=== PATIENT | female | born 1980 | race Caucasian/White ===

== ENCOUNTER 2018-03-22 09:22 | Outpatient (CLI) | payer OTHER, SELFPAY ==
[2018-03-23 07:24] LABS: Vitamin D 25 Total 39.3 ng/ml (30-100)
== END 2018-03-22 09:42 ==
PROVIDERS: PCP Physician Assistant Medical; Visit Provider Podiatrist
DX: E55.9 Vitamin D deficiency, unspecified (principal)
CPT/HCPCS: 36415; 82306

== ENCOUNTER 2018-04-16 13:21 | Outpatient (REF) | payer OTHER, SELFPAY | END 2018-04-16 13:41 | LOC: NCHCN 13:21 | PROVIDERS: PCP Physician Assistant Medical; Visit Provider Specialist/Technologist Athletic Trainer | DX: J02.9 Acute pharyngitis, unspecified (principal) | CPT/HCPCS: 87070 ==

== ENCOUNTER 2018-07-02 15:16 | Outpatient (CLI) | payer OTHER, SELFPAY ==
--- NOTE | 2018-07-02 16:00 | DI.RAD_ITS ---
SYMPTOM/DIAGNOSIS: WHEEZING, R06.2 PA AND LATERAL CHEST: No priors. The heart is normal in size. The lungs are clear. The mediastinal structures and pleura appear intact. CONCLUSION: Normal chest.
== END 2018-07-02 15:36 ==
PROVIDERS: PCP Physician Assistant Medical; Visit Provider Physician Assistant Medical
DX: R06.2 Wheezing
CPT/HCPCS: 71046

== ENCOUNTER 2018-11-27 08:59 | Outpatient (CLI) | payer OTHER, SELFPAY ==
[2018-11-27 10:48] LABS: Calculated LDL 117 mg/dL; Cholesterol 185 mg/dL (50-200); HDL Cholesterol 50 mg/dL (40-60); TSH (W/Ref FT4) 1.47 uIU/mL (0.358-3.74); Triglyceride 94 mg/dL (30-150)
== END 2018-11-27 09:19 ==
PROVIDERS: PCP Physician Assistant Medical; Visit Provider Physician Assistant Medical
DX: Z00.00 Encounter for general adult medical examination without abnormal findings (principal); Z13.29 Encounter for screening for other suspected endocrine disorder; Z13.220 Encounter for screening for lipoid disorders
CPT/HCPCS: 36415; 80061; 83721; 84443

== ENCOUNTER 2019-12-24 09:49 | Outpatient (REF) | payer BC, SELFPAY ==
--- NOTE | 2019-12-24 07:30 | PAPFT_PTH ---
PATIENT: Nory Wilkins LOC: [facility]#:[id number] AGE/SX: 39/F ROOM: RE12/24/[address]: Doreen Yung : 1980 BED: DIS: 12/24/2019 SPEC #: [id number] RECD: 12/24/19 18:30 STATUS: ROSE RERoxy #: [id number] COURTNEY: 12/24/19 07:[address]: Doreen Yung DEPT: [facility] Cytology RECD BY: Micaela Maria Tissues: 1 - CX/ENDOCX FOR PAP SMEARS Procedures: PAP THIN PREP/UVM Screening HPV DNA PROBE Comments: [id number]
== END 2019-12-24 10:09 ==
LOC: NCHCN 09:49
PROVIDERS: PCP Physician Assistant Medical; Visit Provider Physician Assistant Medical
DX: N76.0 Acute vaginitis (principal); Z12.4 Encounter for screening for malignant neoplasm of cervix; Z11.51 Encounter for screening for human papillomavirus (HPV)
CPT/HCPCS: 88142; 87480; 87510; 87624; 87660

== ENCOUNTER 2020-02-23 19:46 | Outpatient (REF) | payer BC, SELFPAY ==
[2020-02-25 13:49] LABS: COVID-19 RT-PCR UVMMC Result Negative (Negative)
== END 2020-02-23 20:06 ==
LOC: NCHCN 19:46
PROVIDERS: PCP Physician Assistant Medical; Visit Provider Physician Assistant Medical
DX: R23.3 Spontaneous ecchymoses (principal); R06.02 Shortness of breath; J06.9 Acute upper respiratory infection, unspecified
CPT/HCPCS: U0003

== ENCOUNTER 2020-02-25 11:10 | Emergency (ER) | payer BC, SELFPAY ==
[2020-02-25] VITALS (39 sets, daily range): BP systolic 126–149; BP diastolic 67–93; PULSE 102–135; RESP 1–24; TEMP 36.7; O2SAT 89–98
--- NOTE | 2020-02-25 11:21 | ED.GENADUL_ITS ---
Discharge Plan Disposition Patient Disposition: [facility] ([facility]) Condition: Stable Discharge Details Clinical Impression: Leukocytosis, Monocytosis, Cervical adenopathy, Splenic lesion, Acute dyspnea, Hypoxia Primary Care Provider: Doreen Yung ED Provider: Monisha Og Home Meds and New Rx's Prescriptions: No Action epinephrine 0.3 MG/SYR auto-injector 0.3 mg IJ PRN PRNRF: 0 albuterol sulfate [ProAir HFA] 8.5 GM HFA aerosol inhaler 2 puff Inhalation PRN PRNRF: 0 omeprazole 40 mg capsule,delayed release(DR/EC) 40 mg PO DAILY RF: 0 montelukast [Singulair] 10 mg Tablet 10 mg PO QHS RF: 0 cholecalciferol (vitamin D3) [Vitamin D3] 25 mcg (1,000 unit) Tablet 25 mcg PO DIRECTED RF: 0 Medical Decision Making 1130 -- 39-year-old female presents with difficulty breathing and sensation of throat swelling status post albuterol x 4 weeks, left shoulder and left lateral rib pain worse with deep breath and moving for the past 2 weeks. Heart rate 120s, oxygen saturation ranged between 90 and 98% on room air. She has mildly diminished breath sounds at bases bilaterally, otherwise no wheezes, rhonchi or crackles. Differential diagnosis includes acute asthma exacerbation, PE, soft tissue neck obstruction, pneumonia, pharyngitis, etc. Will place an IV, bolus IV fluids, screening labs, CT neck, CT chest, and give Solu-Medrol, Atrovent neb, Toradol and fluids and reassess. 1400 --labs and imaging reviewed. White blood cell count 178. Hemoglobin 10. Platelets 30. INR 1.2. Potassium 3.1. Troponin negative. Imaging reviewed with radiologist who notes tissue inflammation and adenopathy on CT neck but airway appears patent. CT chest notes questionable mass in the spleen and Dr. Oliver is requesting venous phase CT abdomen to further evaluate the spleen. Patient reassessed and she states she feels better. Oxygen saturation remains 90% on room air. Lung sounds appear improved. She appears more comfortable. Case discussed with [facility] hematology who requested LDH, uric acid, flow cytometry and peripheral smear. Consider leukemia versus lymphoma, etc. Requested whether a pathologist was in-house and he is not today. They have no beds available but are recommending tertiary care for further evaluation. Will discuss with [facility]. Case discussed with [facility] hospitalist service who agrees with plan for tertiary care and accepts patient for transfer. Accepting physician Dr. Dodd. Transfer center from [facility] shortly called back stating that they do not have a bed available and will plan to transfer to the ER. Case discussed with ED attending Dr. Barfield who accepts patient for transfer. Medical Records Medical records reviewed: Yes I reviewed the patient's medical records. Imaging Data Radiologic Study: Radiologist's impression: CT NECK/CHEST/ABDOMEN W CLINICAL HISTORY: sensation of throat swelling, sore throat TECHNIQUE: COMPARISON: CT CT CHEST PE CTA from 02/25/2020 FINDINGS: CT angiography of the chest was performed followed CT of the cervical region. Following the delay of approximately 2 hours, scanning of abdomen pelvis was performed with additional IV contrast administration to facilitate venous phase imaging of the abdomen.Total of 200 cc of Omnipaque was injected between the 3 scans which were performed. The lungs are predominantly clear with some apparent bibasilar atelectasis left greater than right. There is no evidence of pulmonary embolic disease. Thoracic aorta and major branches appear intact. No significant mediastinal or hilar adenopathy. There is slight prominence of the thymus which is nonspecific. Tracheobronchial tree appears intact. No pleural effusion. On arterial phase imaging, there was apparent multi focal decreased attenuation of the spleen atypical for the usual arterial flow appearance. On venous phase imaging, this was confirmed to represent multiple areas of decreased attenuation, the largest measuring about 8 x 8 cm in diameter. Spleen is mildly enlarged. Liver is normal appearance no focal lesion. Pancreas appears normal. Adrenals and kidneys are normal. No urinary tract obstruction. Yacht [employer] structures appear intact. No focal bowel pathology. No abdominal or pelvic adenopathy. No significant abdominal wall hernia.. Scanning of the cervical region shows multiple mildly enlarged lymph nodes at multiple locations throughout the neck including submandibular enlarged nodes bilaterally, the largest nodes in the mid cervical region measure up to about 20 millimeters in greatest diameter. Mild prominence of supraclavicular nodes is also noted bilaterally, the largest measuring about 10 millimeters in diameter. Tracheolaryngeal structures appear intact. No significant vascular abnormality. Visualized orbits appear intact. Mastoid air cells and paranasal sinuses appear clear. IMPRESSION: Mild to moderate nonspecific cervical adenopathy without bulky adenopathy. Multiple splenic lesions are also noted of indeterminate etiology, suspect neoplastic disease. 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 Lab Data Lab results reviewed: Yes I reviewed the patient's lab results. Labs: 02/25/20 12:20 Pharynx Streptococcus Screen ([facility]) - Pending Laboratory Tests Range/Units 02/25/20 02/25/20 02/25/20 12:00 12:00 12:00 WBC (4.4-10.8) 10^3/uL 178.94 H* RBC (3.93-5.22) 10^6/uL 3.18 L Hgb (11.2-15.7) g/dL 10.1 L Hct (36.0-46.0) % 30.9 L MCV (80-95) fL 97.2 H MCH (27.0-33.0) pg 31.8 MCHC (32.0-36.0) % 32.7 RDW (11.7-14.6) % 16.6 H Plt Count (130-400) 10^3/uL 30 L MPV (8.0-11.0) fL 10.9 Immature Gran % See Differential Neutrophils % 6.0 Lymphocytes % 10.0 Monocytes % 77.0 Eosinophils % 2.0 Basophils % 0.0 Myelocytes % 3 Other Cells % 2 Nucleated RBC % % 0 Absolute Neutrophils (1.2-6.7) 10^3/uL 10.74 H Absolute Lymphocytes (1.2-3.4) 10^3/uL 17.89 H Absolute Monocytes (0.1-0.8) 10^3/uL 137.78 H Absolute Eosinophils (0.0-0.7) 10^3/uL 3.58 H Absolute Basophils (0.0-0.2) 10^3/uL 0.00 RBC Morphology See below Anisocytosis 1+ PT (9.3-11.0) sec 11.9 H INR (0.9-1.1) 1.2 H APTT (21.0-31.4) sec 24.7 Sodium (136-145) mmol/L 140 Potassium (3.5-5.1) mmol/L 3.1 L Chloride (98-107) mmol/L 103 Carbon Dioxide (21.0-32.0) mmol/L 28.1 Anion Gap (3-11) mmol/L 8.9 BUN (7-18) mg/dL 7 Creatinine (0.55-1.02) mg/dL 1.09 H Estimated GFR/1.73 m2 (mL/min/1.73m2) 56.48 Glucose (74-106) mg/dL 111 H Uric Acid (2.6-6.0) mg/dL Calcium (8.5-10.1) mg/dL 8.8 Magnesium (1.8-2.4) mg/dL 2.1 Total Bilirubin (0.2-1.0) mg/dL 0.5 AST (15-37) U/L 55 H ALT (14-59) U/L 96 H Alkaline Phosphatase (46-116) U/L 101 Lactate Dehydrogenase (81-234) U/L Troponin I (<0.06) ng/mL < 0.05 Total Protein (6.4-8.2) g/dL 7.2 Albumin (3.4-5.0) g/dL 3.1 L Serum HCG, Qual Range/Units 02/25/20 02/25/20 12:00 12:00 WBC (4.4-10.8) 10^3/uL RBC (3.93-5.22) 10^6/uL Hgb (11.2-15.7) g/dL Hct (36.0-46.0) % MCV (80-95) fL MCH (27.0-33.0) pg MCHC (32.0-36.0) % RDW (11.7-14.6) % Plt Count (130-400) 10^3/uL MPV (8.0-11.0) fL Immature Gran % Neutrophils % Lymphocytes % Monocytes % Eosinophils % Basophils % Myelocytes % Other Cells % Nucleated RBC % % Absolute Neutrophils (1.2-6.7) 10^3/uL Absolute Lymphocytes (1.2-3.4) 10^3/uL Absolute Monocytes (0.1-0.8) 10^3/uL Absolute Eosinophils (0.0-0.7) 10^3/uL Absolute Basophils (0.0-0.2) 10^3/uL RBC Morphology Anisocytosis PT (9.3-11.0) sec INR (0.9-1.1) APTT (21.0-31.4) sec Sodium (136-145) mmol/L Potassium (3.5-5.1) mmol/L Chloride (98-107) mmol/L Carbon Dioxide (21.0-32.0) mmol/L Anion Gap (3-11) mmol/L BUN (7-18) mg/dL Creatinine (0.55-1.02) mg/dL Estimated GFR/1.73 m2 (mL/min/1.73m2) Glucose (74-106) mg/dL Uric Acid (2.6-6.0) mg/dL 8.3 H Calcium (8.5-10.1) mg/dL Magnesium (1.8-2.4) mg/dL Total Bilirubin (0.2-1.0) mg/dL AST (15-37) U/L ALT (14-59) U/L Alkaline Phosphatase (46-116) U/L Lactate Dehydrogenase (81-234) U/L 1432 H Troponin I (<0.06) ng/mL Total Protein (6.4-8.2) g/dL Albumin (3.4-5.0) g/dL Serum HCG, Qual Negative HPI General Mode of arrival: ambulatory . Date/Time Provider Initiated Documentation: 02/25/20 11:19 . Limitations to Documentation: no limitations . Information obtained by: patient . HPI Narrative: Patient is a 39-year-old female with a history of asthma and PCOS who presents with a complaint of difficulty breathing for the past 4 weeks, worse since yesterday. Patient states that her initial flare was triggered by smelling perfume in the bathroom at her work 4 weeks ago. She states she took 1 puff of her albuterol when she went home and developed a sensation of throat swelling and has not used the albuterol since then. She states she has used albuterol as needed for asthma for several years and has always had this reaction to this. She saw her primary care doctor last week for the symptoms and was started on p.o. steroids and states she is currently on 20 mg daily. She feels that this has slightly improved her sensation of throat swelling and difficulty breathing until last night. She states she is occasionally clearing her throat but otherwise denies any coughing or anterior chest pain. She states that she has left shoulder and left lateral chest pain that hurts with movement and deep breath. She denies any fever, recent travel, recent sick contacts. She has not taken any recent antibiotics. She denies any new pets, foods, irritants at home. Related Data Home Medications Medication Instructions Recorded Confirmed albuterol sulfate [Proair Hfa] 2 puff INHALATION PRN PRN 08/21/15 02/25/20 epinephrine 0.3 mg IJ PRN PRN 08/21/15 02/25/20 cholecalciferol (vitamin D3) 25 mcg PO DIRECTED 02/25/20 02/25/20 [Vitamin D3] montelukast [Singulair] 10 mg PO QHS 02/25/20 02/25/20 omeprazole 40 mg PO DAILY 02/25/20 02/25/20 Allergies Allergy/AdvReac Type Severity Reaction Status Date / Time hydrocodone Allergy Intermediate rash and Unverified 02/25/20 12:31 facial swelling amoxicillin Allergy Unknown as Unverified 02/25/20 12:31 albuterol Allergy Unverified 02/25/20 12:31 fluticasone propionate Allergy mild Unverified 02/25/20 12:31 [From Advair Diskus] throat swelling salmeterol xinafoate Allergy mild Unverified 02/25/20 12:31 [From Advair Diskus] throat swelling venom-honey bee Allergy Anaphylaxsi Unverified 02/25/20 12:31 [bee venom (honey bee)] s Review of Systems All systems reviewed & are unremarkable except as noted in HPI and below Constitutional Constitutional: Reports as per HPI, Denies chills and Denies fever(s) Eyes Eyes: Denies blurry vision ENT Ears, Nose, Mouth, and Throat: Denies dizziness, Denies sore throat and Denies throat swelling Cardiovascular Cardiovascular: Denies chest pain and Reports dyspnea Respiratory Respiratory: Denies cough and Reports dyspnea Gastrointestinal Gastrointestinal: Denies abdominal pain, Denies diarrhea and Denies vomiting Genitourinary Genitourinary: Denies hematuria and Denies dysuria Musculoskeletal Musculoskeletal: Reports back pain and Denies numbness Integumentary/Breasts Skin/Breast: Denies lesions and Denies rash Neurologic Neurologic: Denies dizziness, Denies localized weakness and Denies numbness Allergic/Immunologic Allergic/Immunologic: Denies throat swelling [facility] Medical History (Updated 02/25/20 @ 17:03 by Monisha Og DO) Asthma PCOS (polycystic ovarian syndrome) Surgical History (Updated 02/25/20 @ 12:21 by Monisha Og DO) History of ankle surgery Social History Smoking/Tobacco Use Status: Never Alcohol Intake: current Alcohol Intake frequency: a few times a week Alcohol type: beer, wine and hard liquor Drug use: Never Substance use type: does not use Do you feel safe at home: Yes Do you feel safe in your relationship?: Yes Exam Const General: cooperative and healthy appearing Orientation: alert and awake HENMT Head: normal to inspection Ears: hearing grossly normal bilaterally and external ears normal General nose exam: external nose normal Face and sinus: normal facial exam Mouth: oral mucosae normal Teeth and gingiva: dentition normal Throat: uvula midline, no peritonsillar masses and posterior oropharynx abnormal erythema and exudates (White, bilateral tonsils) Eyes General: appearance normal, both eyes and all related structures Eyelids: eyelids normal Pupils: PERRL EOM: EOM intact bilaterally Neck Neck: normal visual inspection, full ROM, no lymphadenopathy, no meningeal signs, trachea midline, supple, no anterior neck swelling, no midline deformity and No submandibular swelling Lymphatic: no lymphadenopathy noted Chest Chest: normal inspection of the chest Chest/axillae images: 1. Mild tenderness to palpation. No ecchymosis, edema, crepitus or erythema. 2. Mild tenderness to palpation. No ecchymosis, edema, crepitus or erythema. Resp Effort & Inspection: normal respiratory effort and able to speak in complete sentences Auscultation: clear to auscultation bilaterally, diminished lung sounds bilaterally in the lower lung kwan, no rhonchi and no wheezes Cardio Rate: regular rate Rhythm: regular rhythm GI Inspection: normal to inspection Palpation: soft, not firm, no guarding, no hepatosplenomegaly, no masses and no ntender Auscultation: normal bowel sounds Back/Spine/Pelvis Back: no CVA tenderness Skin General skin exam: no rashes or lesions noted Neuro General: patient alert and patient awake Cognition: normal cognition Speech: speech normal Gait: normal gait Motor: muscle tone normal throughout Sensory Exam: no sensory deficits noted Extrem General: normal to inspection, full ROM, capillary refill normal and no edema Psych Appearance: grossly normal Mental Status: mental status grossly normal Speech and Movement: speech and movement normal Affect: normal affect Thought Process: normal
[2020-02-25 12:11] LABS: HCT 30.9 % (36.0-46.0); HGB 10.1 g/dL (11.2-15.7); MCH 31.8 pg (27.0-33.0); MCHC 32.7 % (32.0-36.0); MCV 97.2 fL (80-95); MPV 10.9 fL (8.0-11.0); Nucleated RBC 0 %; RBC 3.18 10^6/uL (3.93-5.22); RDW 16.6 % (11.7-14.6); RDW-SD 57.8 fL
[2020-02-25] MEDS: Ipratropium 0.5 MG/2.5 ML UPD VIAL UPD (12:17)
[2020-02-25 12:22] LABS: INR 1.2 (0.9-1.1); PTT Activated 24.7 sec (21.0-31.4); Prothrombin Time 11.9 sec (9.3-11.0)
[2020-02-25 12:25] LABS: ALT 96 U/L (14-59); AST 55 U/L (15-37); Albumin 3.1 g/dL (3.4-5.0); Alkaline Phosphatase 101 U/L (46-116); Anion Gap 8.9 mmol/L (3-11); BUN 7 mg/dL (7-18); Bilirubin, Total 0.5 mg/dL (0.2-1.0); CO2 28.1 mmol/L (21.0-32.0); CREATININE 1.09 mg/dL (0.55-1.02); Calcium 8.8 mg/dL (8.5-10.1); Chloride 103 mmol/L (98-107); Estimated GFR 56.48 (mL/min/1.73m2); Glucose 111 mg/dL (74-106); Magnesium 2.1 mg/dL (1.8-2.4); Potassium 3.1 mmol/L (3.5-5.1); Sodium 140 mmol/L (136-145); Total Protein 7.2 g/dL (6.4-8.2)
[2020-02-25 12:26] LABS: Troponin I < 0.05 ng/mL (<0.06)
[2020-02-25] MEDS: Normal Saline Flush 10 ML SYR IVP (12:26)
[2020-02-25] MEDS: Normal Saline 1,000 ML 1000 ML IV (12:26)
[2020-02-25] MEDS: methylPREDNISolone SUCC 125 MG VIAL IVP (12:26)
[2020-02-25 12:31] LABS: HCG Qual (Serum) Negative
[2020-02-25 12:50] LABS: WBC 178.94 10^3/uL (4.4-10.8)
[2020-02-25 12:51] LABS: Absolute Lymphocyte Count 17.89 10^3/uL (1.2-3.4); Absolute Neutrophil Count 10.74 10^3/uL (1.2-6.7); Platelet Count 30 10^3/uL (130-400)
[2020-02-25 12:52] LABS: Absolute Eosinophil Count 3.58 10^3/uL (0.0-0.7); Absolute Monocyte Count 137.78 10^3/uL (0.1-0.8); Myelocytes % 3
[2020-02-25 12:53] LABS: Anisocytosis 1+; Other Cells % 2
[2020-02-25 12:54] LABS: Diff Comment Manual Differential
[2020-02-25] MEDS: Normal Saline - Diluent 50 ML VIAL 100 ML IV (13:06)
[2020-02-25] MEDS: Omnipaque 350 MG/ML 100 ML BTL IJ ×2 (13:28→14:48)
[2020-02-25] MEDS: Omnipaque 350 MG/ML 50 ML BTL IJ (13:29)
--- NOTE | 2020-02-25 13:43 | DI.CT_ITS ---
EXAM: CT NECK W CLINICAL HISTORY: sensation of throat swelling, sore throat TECHNIQUE: COMPARISON: CT CT CHEST PE CTA from 02/25/2020 FINDINGS: CT angiography of the chest was performed followed CT of the cervical region. Following the delay of approximately 2 hours, scanning of abdomen pelvis was performed with additiona l IV contrast administration to facilitate venous phase imaging of the abdomen.Total of 200 cc of Omn ipaque was injected between the 3 scans which were performed. The lungs are predominantly clear with some apparent bibasilar atelectasis left greater than right. There is no evidence of pulmonary embolic disease. Thoracic aorta and major branches appear intact. No significant mediastinal or hilar adenopathy. There is slight prominence of the thymus which is n onspecific. Tracheobronchial tree appears intact. No pleural effusion. On arterial phase imaging, there was apparent multi focal decreased attenuation of the spleen atypica l for the usual arterial flow appearance. On venous phase imaging, this was confirmed to represent m ultiple areas of decreased attenuation, the largest measuring about 8 x 8 cm in diameter. Spleen is mildly enlarged. Liver is normal appearance no focal lesion. Pancreas appears normal. Adren als and kidneys are normal. No urinary tract obstruction. [employer] structures appear intact. No focal jase l pathology. No abdominal or pelvic adenopathy. No significant abdominal wall hernia.. Scanning of the cervical region shows multiple mildly enlarged lymph nodes at multiple locations thro ughout the neck including submandibular enlarged nodes bilaterally, the largest nodes in the mid cerv ical region measure up to about 20 millimeters in greatest diameter. Mild prominence of supraclavicul ar nodes is also noted bilaterally, the largest measuring about 10 millimeters in diameter. Tracheola ryngeal structures appear intact. No significant vascular abnormality. Visualized orbits appear intac t. Mastoid air cells and paranasal sinuses appear clear. IMPRESSION: Mild to moderate nonspecific cervical adenopathy without bulky adenopathy. Multiple splenic lesions a re also noted of indeterminate etiology, suspect neoplastic disease. 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 RADIATION DOSE DELIVERED: Total DLP
[2020-02-25 15:23] LABS: Uric Acid 8.3 mg/dL (2.6-6.0)
[2020-02-25 15:24] LABS: LDH 1432 U/L (81-234)
[2020-02-25] MEDS: Potassium Chloride 20 MEQ TABCR 40 MEQ PO (17:10)
== END 2020-02-25 17:55 | disposition short-term general hospital (02) ==
PROVIDERS: Emergency Provider Physician Assistant; PCP Physician Assistant Medical
DX: D72.821 Monocytosis (symptomatic) (principal); D72.829 Elevated white blood cell count, unspecified; R09.02 Hypoxemia; R59.0 Localized enlarged lymph nodes; D73.89 Other diseases of spleen; R93.5 Abnormal findings on diagnostic imaging of other abdominal regions, including retroperitoneum; R07.81 Pleurodynia; R06.00 Dyspnea, unspecified
CPT/HCPCS: 36415; 70491; 71275; 80053; 87880; 94640; 96361; 96374; 99285; 74177; 83615; 83735; 84484; 84550; 84703; 85025; 85610; 85730; 87081; J2930; J3490; J7644; Q9967

== ENCOUNTER 2020-05-17 02:45 | Outpatient (CLI) | payer MEDICAID, SELFPAY ==
[2020-05-17 09:06] LABS: Abs Immature Grans 0.05 10^3/uL (0.0-0.06); Absolute Basophil Count 0.03 10^3/uL (0.0-0.2); Absolute Eosinophil Count 0.03 10^3/uL (0.0-0.7); Absolute Lymphocyte Count 1.06 10^3/uL (1.2-3.4); Absolute Monocyte Count 0.64 10^3/uL (0.1-0.8); Absolute Neutrophil Count 4.22 10^3/uL (1.2-6.7); Basophils % 0.5; Eosinophils % 0.5; HGB 11.2 g/dL (11.2-15.7); Immature Grans % 0.8; Lymphocytes % 17.6; MCH 31.5 pg (27.0-33.0); MCHC 32.9 % (32.0-36.0); MCV 95.8 fL (80-95); MPV 9.6 fL (8.0-11.0); Monocytes % 10.6; Nucleated RBC 0 %; Platelet Count 370 10^3/uL (130-400); RBC 3.55 10^6/uL (3.93-5.22); RDW 20.5 % (11.7-14.6); RDW-SD 69.8 fL; WBC 6.03 10^3/uL (4.4-10.8)
[2020-05-17 09:35] LABS: Anisocytosis 2+; Diff Comment RBC Morph Reviewed
[2020-05-17 09:55] LABS: ALT 46 U/L (14-59); AST 21 U/L (15-37); Albumin 3.5 g/dL (3.4-5.0); Alkaline Phosphatase 48 U/L (46-116); Anion Gap 10.7 mmol/L (3-11); BUN 12 mg/dL (7-18); Bilirubin, Total 0.5 mg/dL (0.2-1.0); CO2 24.3 mmol/L (21.0-32.0); CREATININE 0.99 mg/dL (0.55-1.02); Calcium 9.2 mg/dL (8.5-10.1); Chloride 103 mmol/L (98-107); Glucose 96 mg/dL (74-106); Potassium 4.2 mmol/L (3.5-5.1); Sodium 138 mmol/L (136-145)
[2020-05-18 04:00] LABS: COVID-19 RT-PCR UVMMC Result Negative (Negative)
== END 2020-05-17 03:05 ==
PROVIDERS: PCP Physician Assistant Medical; Visit Provider Student in an Organized Health Care Education/Training Program
DX: C92.00 Acute myeloblastic leukemia, not having achieved remission (principal); Z11.59 Encounter for screening for other viral diseases
CPT/HCPCS: 36415; 80053; U0003; 85025

== ENCOUNTER 2020-06-12 05:28 | Outpatient (CLI) | payer MEDICAID, SELFPAY ==
--- NOTE | 2020-06-12 08:30 | RT.EKG_ITS ---
APPROVED REPORT Exam: Resting ECG Patient Location: O HR:81 bpm ECG Measurements Heart Rate 81 AXIS MI 131 P 51 QRSd 84 QRS 0 QT 365 T 32 QTc 425 Conclusion Sinus rhythm...normal P axis, V-rate 60- 99
== END 2020-06-12 05:48 ==
PROVIDERS: PCP Physician Assistant Medical; Visit Provider Student in an Organized Health Care Education/Training Program
DX: C92.02 Acute myeloblastic leukemia, in relapse (principal)
CPT/HCPCS: 93005; 93010

== ENCOUNTER 2020-06-16 09:00 | Outpatient (RCR) | payer MEDICAID, SELFPAY ==
[2020-05-29 09:05] LABS: Abs Immature Grans 0.01 10^3/uL (0.0-0.06); Absolute Basophil Count 0.02 10^3/uL (0.0-0.2); Absolute Eosinophil Count 0.01 10^3/uL (0.0-0.7); Absolute Lymphocyte Count 0.39 10^3/uL (1.2-3.4); Absolute Neutrophil Count 1.22 10^3/uL (1.2-6.7); Basophils % 1.2; Eosinophils % 0.6; HCT 32.8 % (36.0-46.0); HGB 10.8 g/dL (11.2-15.7); Immature Grans % 0.6; Lymphocytes % 23.6; MCH 32.6 pg (27.0-33.0); MCHC 32.9 % (32.0-36.0); MCV 99.1 fL (80-95); MPV 8.8 fL (8.0-11.0); Nucleated RBC 0 %; Platelet Count 164 10^3/uL (130-400); RBC 3.31 10^6/uL (3.93-5.22); RDW-SD 62.2 fL
[2020-05-29 09:19] LABS: ALT 77 U/L (14-59); AST 22 U/L (15-37); Albumin 3.4 g/dL (3.4-5.0); Alkaline Phosphatase 46 U/L (46-116); BUN 14 mg/dL (7-18); Bilirubin, Total 0.6 mg/dL (0.2-1.0); CREATININE 0.95 mg/dL (0.55-1.02); Calcium 8.5 mg/dL (8.5-10.1); Chloride 104 mmol/L (98-107); Glucose 89 mg/dL (74-106); Sodium 138 mmol/L (136-145); Total Protein 7.1 g/dL (6.4-8.2)
[2020-05-29 09:48] LABS: WBC 1.65 10^3/uL (4.4-10.8)
[2020-05-29 09:49] LABS: Anisocytosis 1+; Diff Comment Diff Reviewed
[2020-05-29] MEDS: Normal Saline Flush 10 ML SYR IVP (10:39)
[2020-06-01 09:29] LABS: Absolute Lymphocyte Count 0.39 10^3/uL (1.2-3.4); HCT 29.7 % (36.0-46.0); MCH 33.1 pg (27.0-33.0); MCHC 33.7 % (32.0-36.0); MCV 98.3 fL (80-95); MPV 9.9 fL (8.0-11.0); Neutrophils % 13.3; Nucleated RBC 0 %; RBC 3.02 10^6/uL (3.93-5.22); RDW 15.8 % (11.7-14.6); RDW-SD 56.8 fL
[2020-06-01 09:54] LABS: ALT 60 U/L (14-59); AST 23 U/L (15-37); Albumin 3.5 g/dL (3.4-5.0); Alkaline Phosphatase 49 U/L (46-116); Anion Gap 9.5 mmol/L (3-11); BUN 14 mg/dL (7-18); Bilirubin, Total 0.6 mg/dL (0.2-1.0); CO2 25.5 mmol/L (21.0-32.0); CREATININE 0.91 mg/dL (0.55-1.02); Calcium 9.3 mg/dL (8.5-10.1); Chloride 104 mmol/L (98-107); Glucose 101 mg/dL (74-106); Potassium 3.9 mmol/L (3.5-5.1); Sodium 139 mmol/L (136-145); Total Protein 7.1 g/dL (6.4-8.2)
[2020-06-01 10:05] LABS: Diff Comment Agrees w/ Instrument; Lymphocytes % 86.7
[2020-06-01 10:09] LABS: Poikilocytes 2+
[2020-06-01 10:10] LABS: WBC 0.45 10^3/uL (4.4-10.8)
[2020-06-01 10:11] LABS: Absolute Neutrophil Count 0.06 10^3/uL (1.2-6.7); Platelet Count 45 10^3/uL (130-400)
[2020-06-01 10:12] LABS: Hypochromasia 1+
[2020-06-01] MEDS: Normal Saline Flush 10 ML SYR IVP (10:22)
[2020-06-05 07:13] LABS: Absolute Lymphocyte Count 0.42 10^3/uL (1.2-3.4); HCT 26.4 % (36.0-46.0); MCH 32.6 pg (27.0-33.0); MCHC 34.1 % (32.0-36.0); MCV 95.7 fL (80-95); Neutrophils % 2.3; Nucleated RBC 0 %; RBC 2.76 10^6/uL (3.93-5.22); RDW 14.7 % (11.7-14.6); RDW-SD 50.9 fL
[2020-06-05 08:18] LABS: WBC 0.43 10^3/uL (4.4-10.8)
[2020-06-05 08:19] LABS: Absolute Neutrophil Count 0.01 10^3/uL (1.2-6.7)
[2020-06-05 08:20] LABS: Platelet Count < 2 10^3/uL (130-400)
[2020-06-05 08:22] LABS: Lymphocytes % 97.7
[2020-06-05 08:23] LABS: Diff Comment Agrees w/ Instrument
[2020-06-05 08:24] LABS: RBC Morphology Normal
[2020-06-05 08:33] LABS: ALT 63 U/L (14-59); AST 27 U/L (15-37); Albumin 3.4 g/dL (3.4-5.0); Alkaline Phosphatase 63 U/L (46-116); Anion Gap 13.8 mmol/L (3-11); BUN 13 mg/dL (7-18); Bilirubin, Total 0.6 mg/dL (0.2-1.0); CO2 21.2 mmol/L (21.0-32.0); CREATININE 1.19 mg/dL (0.55-1.02); Calcium 9.2 mg/dL (8.5-10.1); Chloride 105 mmol/L (98-107); Estimated GFR 51.04 (mL/min/1.73m2); Glucose 112 mg/dL (74-106); Potassium 3.8 mmol/L (3.5-5.1); Sodium 140 mmol/L (136-145); Total Protein 7.5 g/dL (6.4-8.2)
[2020-06-05] MEDS: Normal Saline Flush 10 ML SYR IVP (08:51)
[2020-06-07] MEDS: Normal Saline Flush 10 ML SYR IVP (09:30)
[2020-06-07 09:51] LABS: Absolute Eosinophil Count 0.01 10^3/uL (0.0-0.7); Eosinophils % 2.4; HCT 24.3 % (36.0-46.0); HGB 8.5 g/dL (11.2-15.7); MCH 32.7 pg (27.0-33.0); MCV 93.5 fL (80-95); MPV 12.4 fL (8.0-11.0); Nucleated RBC 0 %; RDW 14.3 % (11.7-14.6); RDW-SD 48.7 fL
[2020-06-07 10:06] LABS: ALT 51 U/L (14-59); AST 22 U/L (15-37); Albumin 3.6 g/dL (3.4-5.0); Alkaline Phosphatase 69 U/L (46-116); Anion Gap 12.9 mmol/L (3-11); BUN 11 mg/dL (7-18); Bilirubin, Total 0.7 mg/dL (0.2-1.0); CO2 22.1 mmol/L (21.0-32.0); Calcium 9.3 mg/dL (8.5-10.1); Chloride 104 mmol/L (98-107); Estimated GFR 46.09 (mL/min/1.73m2); Glucose 97 mg/dL (74-106); Potassium 3.9 mmol/L (3.5-5.1); Sodium 139 mmol/L (136-145); Total Protein 7.3 g/dL (6.4-8.2)
[2020-06-07 10:51] LABS: Diff Comment Agrees w/ Instrument; Hypochromasia 2+
[2020-06-07 10:54] LABS: WBC 0.41 10^3/uL (4.4-10.8)
[2020-06-07 10:55] LABS: Platelet Count 30 10^3/uL (130-400)
[2020-06-09 09:00] VITALS: BP 119/64; PULSE 99; RESP 18; TEMP 37.3; O2SAT 99
[2020-06-09 09:12] LABS: Absolute Lymphocyte Count 0.42 10^3/uL (1.2-3.4); Absolute Monocyte Count 0.02 10^3/uL (0.1-0.8); HGB 7.8 g/dL (11.2-15.7); MCH 33.2 pg (27.0-33.0); MCHC 35.5 % (32.0-36.0); MCV 93.6 fL (80-95); MPV 11.1 fL (8.0-11.0); Monocytes % 4.5; Nucleated RBC 0 %; RBC 2.35 10^6/uL (3.93-5.22); RDW 14.3 % (11.7-14.6); RDW-SD 48.4 fL
[2020-06-09 09:29] LABS: ALT 39 U/L (14-59); AST 16 U/L (15-37); Albumin 3.3 g/dL (3.4-5.0); Alkaline Phosphatase 61 U/L (46-116); Anion Gap 10.6 mmol/L (3-11); BUN 13 mg/dL (7-18); Bilirubin, Total 0.4 mg/dL (0.2-1.0); CO2 23.4 mmol/L (21.0-32.0); CREATININE 1.07 mg/dL (0.55-1.02); Calcium 8.9 mg/dL (8.5-10.1); Chloride 105 mmol/L (98-107); Glucose 89 mg/dL (74-106); Potassium 3.9 mmol/L (3.5-5.1); Sodium 139 mmol/L (136-145); Total Protein 7.3 g/dL (6.4-8.2)
[2020-06-09 09:41] LABS: Lymphocytes % 95.5
[2020-06-09 09:42] LABS: Diff Comment Agrees w/ Instrument; Hypochromasia 2+
[2020-06-09 09:43] LABS: Poikilocytes 1+
[2020-06-09 09:48] LABS: Platelet Count 20 10^3/uL (130-400); WBC 0.44 10^3/uL (4.4-10.8)
[2020-06-09 09:57] LABS: Lymphocytes % 97.6
[2020-06-09 10:08] VITALS: BP 121/77; PULSE 96; RESP 18; TEMP 37.1; O2SAT 100
[2020-06-12 09:20] LABS: Absolute Lymphocyte Count 0.53 10^3/uL (1.2-3.4); HGB 7.7 g/dL (11.2-15.7); MCH 32.2 pg (27.0-33.0); MCV 92.1 fL (80-95); MPV 11.3 fL (8.0-11.0); RBC 2.39 10^6/uL (3.93-5.22); RDW 14.2 % (11.7-14.6); RDW-SD 48.1 fL
[2020-06-12 09:32] LABS: ALT 30 U/L (14-59); AST 12 U/L (15-37); Albumin 3.4 g/dL (3.4-5.0); Alkaline Phosphatase 61 U/L (46-116); Anion Gap 9.8 mmol/L (3-11); BUN 11 mg/dL (7-18); Bilirubin, Total 0.3 mg/dL (0.2-1.0); CO2 24.2 mmol/L (21.0-32.0); Calcium 9.3 mg/dL (8.5-10.1); Chloride 104 mmol/L (98-107); Estimated GFR 50.55 (mL/min/1.73m2); Glucose 103 mg/dL (74-106); Potassium 3.8 mmol/L (3.5-5.1); Sodium 138 mmol/L (136-145); Total Protein 7.5 g/dL (6.4-8.2)
[2020-06-12 09:51] LABS: Platelet Count 45 10^3/uL (130-400)
[2020-06-12 09:57] LABS: Absolute Monocyte Count 0.16 10^3/uL (0.1-0.8); Lymphocytes % 70.3; Monocytes % 21.6; Neutrophils % 8.1; Nucleated RBC 2 %
[2020-06-12 10:12] LABS: Diff Comment Agrees w/ Instrument
[2020-06-12] MEDS: Normal Saline Flush 10 ML SYR IVP (10:20)
[2020-06-12 10:50] LABS: Absolute Neutrophil Count 0.06 10^3/uL (1.2-6.7); WBC 0.75 10^3/uL (4.4-10.8)
[2020-06-14 09:07] VITALS: BP 121/77; PULSE 96; RESP 18; TEMP 37.1; O2SAT 100
[2020-06-14] MEDS: Normal Saline Flush 10 ML SYR IVP (09:09)
[2020-06-14 09:14] LABS: Abs Immature Grans 0.04 10^3/uL (0.0-0.06); Absolute Lymphocyte Count 0.73 10^3/uL (1.2-3.4); Absolute Monocyte Count 0.43 10^3/uL (0.1-0.8); HCT 22.1 % (36.0-46.0); HGB 7.7 g/dL (11.2-15.7); Immature Grans % 2.8; Lymphocytes % 50.7; MCH 32.6 pg (27.0-33.0); MCHC 34.8 % (32.0-36.0); MCV 93.6 fL (80-95); MPV 10.9 fL (8.0-11.0); Monocytes % 29.9; Neutrophils % 16.6; Nucleated RBC 5 %; RBC 2.36 10^6/uL (3.93-5.22); RDW 14.2 % (11.7-14.6); RDW-SD 48.7 fL
[2020-06-14 09:31] LABS: ALT 30 U/L (14-59); AST 16 U/L (15-37); Albumin 3.4 g/dL (3.4-5.0); Alkaline Phosphatase 58 U/L (46-116); Anion Gap 13.7 mmol/L (3-11); BUN 10 mg/dL (7-18); Bilirubin, Total 0.3 mg/dL (0.2-1.0); CO2 22.3 mmol/L (21.0-32.0); CREATININE 1.34 mg/dL (0.55-1.02); Calcium 9.2 mg/dL (8.5-10.1); Chloride 103 mmol/L (98-107); Estimated GFR 44.51 (mL/min/1.73m2); Glucose 98 mg/dL (74-106); Potassium 3.6 mmol/L (3.5-5.1); Sodium 139 mmol/L (136-145); Total Protein 7.6 g/dL (6.4-8.2)
[2020-06-14 09:33] LABS: Absolute Neutrophil Count 0.24 10^3/uL (1.2-6.7); WBC 1.44 10^3/uL (4.4-10.8)
[2020-06-14 09:34] LABS: Platelet Count 65 10^3/uL (130-400)
[2020-06-14 09:35] LABS: Diff Comment Agrees w/ Instrument; Polychromasia Present
[2020-06-16] VITALS (8 sets, daily range): BP systolic 116–148; BP diastolic 75–84; PULSE 76–96; RESP 17–18; TEMP 36.7–37.7; O2SAT 100
[2020-06-16 09:05] LABS: Abs Immature Grans 0.07 10^3/uL (0.0-0.06); Absolute Basophil Count 0.01 10^3/uL (0.0-0.2); Absolute Lymphocyte Count 0.77 10^3/uL (1.2-3.4); Absolute Neutrophil Count 0.62 10^3/uL (1.2-6.7); Basophils % 0.4; HCT 21.5 % (36.0-46.0); HGB 7.4 g/dL (11.2-15.7); Lymphocytes % 32.5; MCH 32.5 pg (27.0-33.0); MCHC 34.4 % (32.0-36.0); MCV 94.3 fL (80-95); MPV 11.6 fL (8.0-11.0); Neutrophils % 26.1; RBC 2.28 10^6/uL (3.93-5.22); RDW 14.6 % (11.7-14.6); RDW-SD 49.7 fL; WBC 2.37 10^3/uL (4.4-10.8)
[2020-06-16 09:23] LABS: Nucleated RBC 5 %; Platelet Count 94 10^3/uL (130-400)
[2020-06-16 09:24] LABS: Diff Comment Agrees w/ Instrument; Polychromasia Present
[2020-06-16 09:32] LABS: ALT 27 U/L (14-59); AST 17 U/L (15-37); Albumin 3.2 g/dL (3.4-5.0); Alkaline Phosphatase 51 U/L (46-116); Anion Gap 9.4 mmol/L (3-11); BUN 10 mg/dL (7-18); Bilirubin, Total 0.3 mg/dL (0.2-1.0); CO2 23.6 mmol/L (21.0-32.0); CREATININE 1.1 mg/dL (0.55-1.02); Calcium 8.8 mg/dL (8.5-10.1); Chloride 103 mmol/L (98-107); Estimated GFR 55.89 (mL/min/1.73m2); Glucose 96 mg/dL (74-106); Potassium 3.9 mmol/L (3.5-5.1); Sodium 136 mmol/L (136-145); Total Protein 7.2 g/dL (6.4-8.2)
[2020-06-16] MEDS: Normal Saline Flush 10 ML SYR IVP (12:13)
== END 2020-06-18 23:59 | disposition home or self-care (01) ==
LOC: INF 09:00
PROVIDERS: Internal Medicine Hematology & Oncology; Physician Assistant; PCP Physician Assistant Medical; Visit Provider Student in an Organized Health Care Education/Training Program
DX: C92.02 Acute myeloblastic leukemia, in relapse (principal); Z45.2 Encounter for adjustment and management of vascular access device
CPT/HCPCS: 36430; 36591; 80053; 86850; 86900; 86901; 86920; 86945; 85025; P9016; P9035

== ENCOUNTER 2020-06-19 08:20 | Outpatient (CLI) | payer MEDICAID, SELFPAY ==
--- NOTE | 2020-06-19 08:45 | RT.EKG_ITS ---
APPROVED REPORT Exam: Resting ECG Patient Location: O HR:79 bpm ECG Measurements Heart Rate 79 AXIS NE 108 P -4 QRSd 79 QRS 5 QT 386 T 38 QTc 443 Conclusion Sinus rhythm...normal P axis, V-rate 60- 99
== END 2020-06-19 08:40 ==
PROVIDERS: PCP Physician Assistant Medical; Visit Provider Physician Assistant Medical
DX: C92.02 Acute myeloblastic leukemia, in relapse (principal)
CPT/HCPCS: 93005; 93010

== ENCOUNTER 2020-07-05 02:23 | Outpatient (RCR) | payer MEDICAID, SELFPAY ==
[2020-06-19 00:07] VITALS: BP 133/83; PULSE 96; RESP 18; TEMP 37
[2020-06-19] MEDS: Normal Saline Flush 10 ML SYR IVP (08:02)
[2020-06-19 08:15] LABS: Abs Immature Grans 0.11 10^3/uL (0.0-0.06); Absolute Basophil Count 0.01 10^3/uL (0.0-0.2); Absolute Lymphocyte Count 1.02 10^3/uL (1.2-3.4); Absolute Monocyte Count 1.12 10^3/uL (0.1-0.8); Basophils % 0.2; HCT 27.9 % (36.0-46.0); HGB 9.3 g/dL (11.2-15.7); Immature Grans % 2.7; Lymphocytes % 25.2; MCH 31.8 pg (27.0-33.0); MCHC 33.3 % (32.0-36.0); MCV 95.5 fL (80-95); MPV 11.2 fL (8.0-11.0); Monocytes % 27.7; Neutrophils % 44.2; Nucleated RBC 5 %; Platelet Count 176 10^3/uL (130-400); RBC 2.92 10^6/uL (3.93-5.22); RDW 16.2 % (11.7-14.6); RDW-SD 53.4 fL; WBC 4.04 10^3/uL (4.4-10.8)
[2020-06-19 08:17] LABS: Absolute Neutrophil Count 1.79 10^3/uL (1.2-6.7)
[2020-06-19 08:30] LABS: ALT 26 U/L (14-59); AST 17 U/L (15-37); Albumin 3.4 g/dL (3.4-5.0); Alkaline Phosphatase 52 U/L (46-116); Anion Gap 12.6 mmol/L (3-11); BUN 10 mg/dL (7-18); Bilirubin, Total 0.3 mg/dL (0.2-1.0); CO2 22.4 mmol/L (21.0-32.0); CREATININE 1.2 mg/dL (0.55-1.02); Chloride 105 mmol/L (98-107); Estimated GFR 50.55 (mL/min/1.73m2); Glucose 94 mg/dL (74-106); Potassium 3.6 mmol/L (3.5-5.1); Sodium 140 mmol/L (136-145); Total Protein 7.6 g/dL (6.4-8.2)
[2020-06-22 09:09] LABS: Abs Immature Grans 0.08 10^3/uL (0.0-0.06); Absolute Basophil Count 0.02 10^3/uL (0.0-0.2); Absolute Lymphocyte Count 1.08 10^3/uL (1.2-3.4); Absolute Monocyte Count 0.88 10^3/uL (0.1-0.8); Absolute Neutrophil Count 2.59 10^3/uL (1.2-6.7); Basophils % 0.4; HCT 27.4 % (36.0-46.0); Immature Grans % 1.7; Lymphocytes % 23.2; MCH 32.4 pg (27.0-33.0); MCHC 32.8 % (32.0-36.0); MCV 98.6 fL (80-95); Monocytes % 18.9; Neutrophils % 55.8; Nucleated RBC 2 %; Platelet Count 249 10^3/uL (130-400); RBC 2.78 10^6/uL (3.93-5.22); RDW 17.5 % (11.7-14.6); RDW-SD 54.1 fL; WBC 4.65 10^3/uL (4.4-10.8)
[2020-06-22] MEDS: Normal Saline Flush 10 ML SYR IVP (09:14)
[2020-06-22 09:24] LABS: ALT 19 U/L (14-59); AST 11 U/L (15-37); Albumin 3.2 g/dL (3.4-5.0); Alkaline Phosphatase 49 U/L (46-116); Anion Gap 11.1 mmol/L (3-11); BUN 9 mg/dL (7-18); Bilirubin, Total 0.3 mg/dL (0.2-1.0); CO2 23.9 mmol/L (21.0-32.0); Calcium 8.8 mg/dL (8.5-10.1); Chloride 106 mmol/L (98-107); Glucose 93 mg/dL (74-106); Potassium 3.6 mmol/L (3.5-5.1); Sodium 141 mmol/L (136-145); Total Protein 7.2 g/dL (6.4-8.2)
[2020-06-26 09:21] LABS: Abs Immature Grans 0.05 10^3/uL (0.0-0.06); Absolute Basophil Count 0.03 10^3/uL (0.0-0.2); Absolute Lymphocyte Count 1.29 10^3/uL (1.2-3.4); Absolute Monocyte Count 0.93 10^3/uL (0.1-0.8); Absolute Neutrophil Count 3.65 10^3/uL (1.2-6.7); Basophils % 0.5; HCT 31.6 % (36.0-46.0); HGB 10.2 g/dL (11.2-15.7); Immature Grans % 0.8; Lymphocytes % 21.7; MCH 32.8 pg (27.0-33.0); MCHC 32.3 % (32.0-36.0); MCV 101.6 fL (80-95); MPV 10.7 fL (8.0-11.0); Monocytes % 15.6; Neutrophils % 61.4; Nucleated RBC 1 %; Platelet Count 378 10^3/uL (130-400); RBC 3.11 10^6/uL (3.93-5.22); RDW 19.4 % (11.7-14.6); WBC 5.95 10^3/uL (4.4-10.8)
[2020-06-26] MEDS: Normal Saline Flush 10 ML SYR IVP (09:31)
[2020-06-26 09:33] LABS: ALT 18 U/L (14-59); AST 13 U/L (15-37); Albumin 3.4 g/dL (3.4-5.0); Alkaline Phosphatase 51 U/L (46-116); BUN 10 mg/dL (7-18); Bilirubin, Total 0.3 mg/dL (0.2-1.0); CREATININE 1.1 mg/dL (0.55-1.02); Calcium 8.9 mg/dL (8.5-10.1); Chloride 104 mmol/L (98-107); Estimated GFR 55.89 (mL/min/1.73m2); Glucose 87 mg/dL (74-106); Potassium 3.9 mmol/L (3.5-5.1); Sodium 140 mmol/L (136-145); Total Protein 7.8 g/dL (6.4-8.2)
[2020-06-29] MEDS: Normal Saline Flush 10 ML SYR IVP (08:40)
[2020-06-29 09:01] LABS: Abs Immature Grans 0.05 10^3/uL (0.0-0.06); Absolute Basophil Count 0.04 10^3/uL (0.0-0.2); Absolute Eosinophil Count 0.01 10^3/uL (0.0-0.7); Absolute Monocyte Count 0.81 10^3/uL (0.1-0.8); Absolute Neutrophil Count 3.74 10^3/uL (1.2-6.7); Basophils % 0.7; Eosinophils % 0.2; HCT 32.1 % (36.0-46.0); HGB 10.5 g/dL (11.2-15.7); Immature Grans % 0.8; Lymphocytes % 21.8; MCH 33.3 pg (27.0-33.0); MCHC 32.7 % (32.0-36.0); MCV 101.9 fL (80-95); MPV 10.2 fL (8.0-11.0); Monocytes % 13.6; Neutrophils % 62.9; Nucleated RBC 0 %; Platelet Count 419 10^3/uL (130-400); RBC 3.15 10^6/uL (3.93-5.22); RDW 19.6 % (11.7-14.6); RDW-SD 71.6 fL; WBC 5.95 10^3/uL (4.4-10.8)
[2020-06-29 09:13] LABS: ALT 19 U/L (14-59); AST 11 U/L (15-37); Albumin 3.4 g/dL (3.4-5.0); Alkaline Phosphatase 46 U/L (46-116); Anion Gap 11.3 mmol/L (3-11); BUN 11 mg/dL (7-18); Bilirubin, Total 0.3 mg/dL (0.2-1.0); CO2 24.7 mmol/L (21.0-32.0); CREATININE 1.1 mg/dL (0.55-1.02); Calcium 9.1 mg/dL (8.5-10.1); Chloride 103 mmol/L (98-107); Estimated GFR 55.89 (mL/min/1.73m2); Glucose 72 mg/dL (74-106); Potassium 3.9 mmol/L (3.5-5.1); Sodium 139 mmol/L (136-145); Total Protein 7.6 g/dL (6.4-8.2)
[2020-07-05] MEDS: Normal Saline Flush 10 ML SYR IVP (07:24)
[2020-07-05 07:44] LABS: Abs Immature Grans 0.09 10^3/uL (0.0-0.06); Absolute Basophil Count 0.05 10^3/uL (0.0-0.2); Absolute Eosinophil Count 0.03 10^3/uL (0.0-0.7); Absolute Lymphocyte Count 1.25 10^3/uL (1.2-3.4); Absolute Monocyte Count 0.76 10^3/uL (0.1-0.8); Absolute Neutrophil Count 5.69 10^3/uL (1.2-6.7); Basophils % 0.6; Eosinophils % 0.4; HCT 34.7 % (36.0-46.0); HGB 11.3 g/dL (11.2-15.7); Immature Grans % 1.1; Lymphocytes % 15.9; MCHC 32.6 % (32.0-36.0); MCV 101.5 fL (80-95); MPV 10.1 fL (8.0-11.0); Monocytes % 9.7; Neutrophils % 72.3; Nucleated RBC 0 %; Platelet Count 475 10^3/uL (130-400); RBC 3.42 10^6/uL (3.93-5.22); RDW 18.7 % (11.7-14.6); RDW-SD 69.8 fL; WBC 7.87 10^3/uL (4.4-10.8)
[2020-07-05 08:14] LABS: ALT 24 U/L (14-59); AST 13 U/L (15-37); Albumin 3.3 g/dL (3.4-5.0); Alkaline Phosphatase 48 U/L (46-116); Anion Gap 12.9 mmol/L (3-11); BUN 10 mg/dL (7-18); Bilirubin, Total 0.4 mg/dL (0.2-1.0); CO2 24.1 mmol/L (21.0-32.0); Calcium 9.4 mg/dL (8.5-10.1); Chloride 104 mmol/L (98-107); Glucose 97 mg/dL (74-106); Potassium 3.7 mmol/L (3.5-5.1); Sodium 141 mmol/L (136-145); Total Protein 7.6 g/dL (6.4-8.2)
== END 2020-07-16 23:59 | disposition home or self-care (01) ==
LOC: INF 02:23
PROVIDERS: PCP Physician Assistant Medical; Visit Provider Student in an Organized Health Care Education/Training Program
DX: C92.02 Acute myeloblastic leukemia, in relapse (principal); Z45.2 Encounter for adjustment and management of vascular access device
CPT/HCPCS: 36591; 80053; 86900; 86901; 85025

== ENCOUNTER 2020-07-22 18:24 | Emergency (ER) | payer MEDICAID, SELFPAY ==
[2020-07-22] VITALS (23 sets, daily range): BP systolic 102–151; BP diastolic 53–99; PULSE 87–122; RESP 11–30; TEMP 36.5; O2SAT 93–100
--- NOTE | 2020-07-22 19:21 | ED.GENADUL_ITS ---
Discharge Plan Discharge Details Chief Complaint: GenMedical Primary Care Provider: Doreen Yung ED Provider: Micalea Grey Home Meds and New Rx's Prescriptions: No Action epinephrine 0.3 MG/SYR auto-injector 0.3 mg IJ PRN PRNRF: 0 albuterol sulfate [ProAir HFA] 8.5 GM HFA aerosol inhaler 2 puff Inhalation PRN PRNRF: 0 ondansetron HCl [Zofran] 4 mg Tablet 4 mg PO Q6H PRNRF: 0 acyclovir 400 mg Tablet 400 mg PO BID RF: 0 lidocaine-prilocaine [Emla] 2.5-2.5 % Cream 1 applic TOPICAL ONCE PRNRF: 0 pantoprazole 40 mg Tablet,Delayed Release (Dr/Ec) 40 mg PO DAILY RF: 0 diphenhydramine HCl [Benadryl] 25 mg Capsule 25 mg PO DAILY RF: 0 norethindrone acetate 5 mg Tablet 5 mg PO BID RF: 0 levofloxacin [Levaquin] 500 mg Tablet 500 mg PO DAILY RF: 0 ipratropium bromide [Atrovent] 0.02 % Solution 2.5 ml INHALATION DAILY PRNRF: 0 posaconazole 100 mg Tablet,Delayed Release (Dr/Ec) 300 mg PO DAILY RF: 0 montelukast [Singulair] 10 mg Tablet 10 mg PO QHS RF: 0 cholecalciferol (vitamin D3) [Vitamin D3] 25 mcg (1,000 unit) Tablet 25 mcg PO DIRECTED RF: 0 Medical Decision Making Platelet count of 7000, neutrophils 0.01 -Neutropenic precautions Patient is hemodynamically stable, she is alert and oriented She has no evidence of life-threatening hemorrhage at this time Initially the plan was to transfuse patient with irradiated platelets, however I called the blood bank and he will not have access for approximately 48 hours It is recalled [facility] and spoke with the on-call oncologist, Dr. Garnica recommend urgent transport to the emergency room at [facility] for irradiated platelet transfusion Patient is agreeable to transport at this time She has been stable throughout the entirety of the encounter No evidence of neutropenic fever Patient was accepted in transfer by Dr. Horn, emergency room physician at [facility] emergency room Differential Diagnosis Differential Diagnosis: Anemia, neutropenia, thrombocytopenia, AML Medical Records Medical records reviewed: Yes I reviewed the patient's medical records. Lab Data Lab results reviewed: Yes I reviewed the patient's lab results. HPI This very pleasant 39-year-old female with history of recent diagnosis of AML who presents with report of increased bruising. She finished her last chemotherapy the previous week. She states that she was feeling well yesterday and noticed breathing this afternoon which concerned her because her platelets have been low in the past. She denies any chest pain, shortness of breath, weakness, dizziness. She has a very mild headache which is consistent with her thrombocytopenia and denies any worsening or changing headache. She states the headache is completely resolved with Tylenol consumption. She denies any vision change, strength or sensation change, chest pain, shortness of breath, syncopal episode GI bleeding, blood when brushing teeth. She otherwise feels at baseline aside from being mildly tired. General Date/Time Provider Initiated Documentation: 07/22/20 18:26 . Related Data Home Medications Medication Instructions Recorded Confirmed albuterol sulfate [Proair Hfa] 2 puff INHALATION PRN PRN 08/21/15 07/22/20 epinephrine 0.3 mg IJ PRN PRN 08/21/15 07/22/20 cholecalciferol (vitamin D3) 25 mcg PO DIRECTED 02/25/20 07/22/20 [Vitamin D3] montelukast [Singulair] 10 mg PO QHS 02/25/20 07/22/20 acyclovir 400 mg PO BID 07/22/20 07/22/20 diphenhydramine HCl [Benadryl] 25 mg PO DAILY 07/22/20 07/22/20 ipratropium bromide [Atrovent] 2.5 ml INHALATION DAILY PRN 07/22/20 07/22/20 levofloxacin [Levaquin] 500 mg PO DAILY 07/22/20 07/22/20 lidocaine-prilocaine [Emla] 1 applic TOPICAL ONCE PRN 07/22/20 07/22/20 norethindrone acetate 5 mg PO BID 07/22/20 07/22/20 ondansetron HCl [Zofran] 4 mg PO Q6H PRN 07/22/20 07/22/20 pantoprazole 40 mg PO DAILY 07/22/20 07/22/20 posaconazole 300 mg PO DAILY 07/22/20 07/22/20 Allergies Allergy/AdvReac Type Severity Reaction Status Date / Time hydrocodone Allergy Intermediate rash and Unverified 07/22/20 18:43 facial swelling amoxicillin Allergy Unknown as Unverified 07/22/20 18:43 albuterol Allergy Unverified 07/22/20 18:43 fluticasone propionate Allergy mild Unverified 07/22/20 18:43 [From Advair Diskus] throat swelling salmeterol xinafoate Allergy mild Unverified 07/22/20 18:43 [From Advair Diskus] throat swelling vancomycin Allergy Skin Rash Unverified 07/22/20 18:43 venom-honey bee Allergy Anaphylaxsi Unverified 07/22/20 18:43 [bee venom (honey bee)] s General Stated Complaint: GenMedical RICKY: 3 Review of Systems Narrative: Review of systems negative x7 aside from where indicated in the HPI [facility] Medical History (Updated 03/27/20 @ 00:02 by CHAGO CAMILO) Asthma PCOS (polycystic ovarian syndrome) Surgical History (Updated 02/25/20 @ 12:21 by Monisha Og DO) History of ankle surgery Social History Smoking/Tobacco Use Status: Never Smoking risk assessment performed?: Yes Alcohol Intake: current Alcohol Intake frequency: a few times a week Alcohol type: beer, wine and hard liquor Drug use: Never Substance use type: does not use Do you feel safe at home: Yes Do you feel safe in your relationship?: Yes Exam Const General: comfortable HENMT Other: no Epistaxis or petechiae of oropharynx Resp Effort & Inspection: normal respiratory effort Cardio Rate: regular rate GI Other: Several areas of petechiae x2. The petechia, 2 areas noted to lower abdomen Skin Other: Ecchymosis to your left forearm, small area petechiae to left scapular region Neuro General: patient alert and patient oriented x3 Cognition: normal cognition Speech: speech normal Gait: normal gait Course Vital Signs Vital signs: Vital Signs Temperature 36.5 C 07/22/20 18:32 Pulse 119 H 07/22/20 18:32 Respiratory Rate 18 07/22/20 18:32 Blood Pressure 128/99 H 07/22/20 18:32 Pulse Oximetry 100 07/22/20 18:32 Temperature 36.5 C 07/22/20 18:32 Temperature Source Skin 07/22/20 18:32 Pulse 119 H 07/22/20 18:32 Respiratory Rate 18 07/22/20 18:32 Respiratory Effort 07/22/20 18:36 Blood Pressure 128/99 H 07/22/20 18:32 Blood Pressure Position Sitting 07/22/20 18:32 Pulse Oximetry 100 07/22/20 18:32 Oxygen Delivery Method Room Air 07/22/20 18:32 Oxygen Flow Rate 0 07/22/20 18:32 Pain Level 1 07/22/20 18:32 Comment 07/22/20 18:32
[2020-07-22 19:38] LABS: Absolute Lymphocyte Count 0.43 10^3/uL (1.2-3.4); HCT 26.5 % (36.0-46.0); Lymphocytes % 97.7; MCH 33.3 pg (27.0-33.0); MCV 98.1 fL (80-95); Neutrophils % 2.3; Nucleated RBC 0 %; RDW 13.1 % (11.7-14.6); RDW-SD 46.3 fL
[2020-07-22 19:41] LABS: ALT 59 U/L (14-59); AST 22 U/L (15-37); Albumin 3.2 g/dL (3.4-5.0); Alkaline Phosphatase 66 U/L (46-116); Anion Gap 10.9 mmol/L (3-11); BUN 13 mg/dL (7-18); Bilirubin, Total 0.4 mg/dL (0.2-1.0); CO2 25.1 mmol/L (21.0-32.0); CREATININE 1.1 mg/dL (0.55-1.02); Calcium 8.9 mg/dL (8.5-10.1); Chloride 105 mmol/L (98-107); Estimated GFR 55.89 (mL/min/1.73m2); Glucose 105 mg/dL (74-106); Potassium 3.7 mmol/L (3.5-5.1); Sodium 141 mmol/L (136-145); Total Protein 6.9 g/dL (6.4-8.2)
[2020-07-22 19:46] LABS: WBC 0.44 10^3/uL (4.4-10.8)
[2020-07-22 19:47] LABS: Absolute Neutrophil Count 0.01 10^3/uL (1.2-6.7); Platelet Count 7 10^3/uL (130-400)
[2020-07-22 20:22] LABS: Diff Comment Agrees w/ Instrument
[2020-07-22 20:23] LABS: Poikilocytes 1+
--- NOTE | 2020-07-22 21:26 | NUR.NOTE ---
Nursing Note:Patient spoke with her r/t transfer to [place] so that she is able to get her platelet transfusion sooner than later. Patient agrees to S ambulance transfer and will go in AM. Patient requesting her PM medication. Micaela SANTANA aware. [id number] to go to the ER , transport being arranged. PB and esperanza melendezers given to patient at her request. Patient is on Neutropenic Precautions.
[2020-07-22] MEDS: Acyclovir 400 MG TAB PO (21:54)
[2020-07-22] MEDS: levoFLOXacin 500 MG TAB PO (21:54)
[2020-07-22] MEDS: Norethindrone 5 MG TAB PO (21:55)
--- NOTE | 2020-07-22 22:13 | NUR.NOTE ---
Nursing Note:Report to EMS and left ER for transport to [facility].
== END 2020-07-22 22:15 ==
PROVIDERS: Emergency Provider Physician Assistant; PCP Physician Assistant Medical
DX: D69.59 Other secondary thrombocytopenia (principal); D70.8 Other neutropenia; C92.00 Acute myeloblastic leukemia, not having achieved remission; Z79.899 Other long term (current) drug therapy; Z45.2 Encounter for adjustment and management of vascular access device
CPT/HCPCS: 36591; 80053; 86850; 86900; 86901; 99285; 85025

== ENCOUNTER 2020-07-24 11:45 | Outpatient (CLI) | payer MEDICAID, SELFPAY ==
--- NOTE | 2020-07-24 07:45 | RT.EKG_ITS ---
APPROVED REPORT Exam: Resting ECG Patient Location: O HR:100 bpm ECG Measurements Heart Rate 100 AXIS NM 125 P 38 QRSd 77 QRS 15 QT 344 T 30 QTc 443 Conclusion Sinus tachycardia...rate> 99
== END 2020-07-24 11:46 | disposition home or self-care (01) ==
LOC: RT 08-07 11:45
PROVIDERS: PCP Physician Assistant Medical; Visit Provider Physician Assistant Medical
DX: R00.0 Tachycardia, unspecified (principal); C92.02 Acute myeloblastic leukemia, in relapse
CPT/HCPCS: 93005; 93010

== ENCOUNTER 2020-07-31 03:54 | Outpatient (CLI) | payer MEDICAID, SELFPAY ==
--- NOTE | 2020-07-31 09:15 | RT.EKG_ITS ---
APPROVED REPORT Exam: Resting ECG Patient Location: O HR:100 bpm ECG Measurements Heart Rate 100 AXIS NJ 126 P 43 QRSd 78 QRS -4 QT 350 T 28 QTc 452 Conclusion Sinus tachycardia...rate> 99
== END 2020-07-31 03:55 | disposition home or self-care (01) ==
LOC: RT 03:54
PROVIDERS: PCP Physician Assistant Medical; Visit Provider Physician Assistant Medical
DX: C92.02 Acute myeloblastic leukemia, in relapse (principal)
CPT/HCPCS: 93005; 93010

== ENCOUNTER 2020-08-14 03:01 | Outpatient (RCR) | payer MEDICAID, SELFPAY ==
[2020-07-17 00:05] VITALS: BP 133/83; PULSE 96; RESP 18; TEMP 37
[2020-07-17 07:38] LABS: ALT 41 U/L (14-59); AST 19 U/L (15-37); Albumin 3.3 g/dL (3.4-5.0); Alkaline Phosphatase 46 U/L (46-116); Anion Gap 8.2 mmol/L (3-11); BUN 16 mg/dL (7-18); Bilirubin, Total 0.7 mg/dL (0.2-1.0); CO2 25.8 mmol/L (21.0-32.0); CREATININE 0.8 mg/dL (0.55-1.02); Calcium 8.8 mg/dL (8.5-10.1); Chloride 104 mmol/L (98-107); Glucose 95 mg/dL (74-106); Potassium 3.6 mmol/L (3.5-5.1); Sodium 138 mmol/L (136-145)
[2020-07-17 07:51] LABS: Abs Immature Grans 0.01 10^3/uL (0.0-0.06); Absolute Basophil Count 0.02 10^3/uL (0.0-0.2); Absolute Eosinophil Count 0.01 10^3/uL (0.0-0.7); Absolute Lymphocyte Count 0.44 10^3/uL (1.2-3.4); Absolute Monocyte Count 0.01 10^3/uL (0.1-0.8); Absolute Neutrophil Count 1.36 10^3/uL (1.2-6.7); Basophils % 1.1; Eosinophils % 0.5; HCT 33.5 % (36.0-46.0); HGB 11.1 g/dL (11.2-15.7); Immature Grans % 0.5; Lymphocytes % 23.8; MCHC 33.1 % (32.0-36.0); MCV 102.8 fL (80-95); MPV 9.6 fL (8.0-11.0); Monocytes % 0.5; Neutrophils % 73.6; Nucleated RBC 0 %; Platelet Count 187 10^3/uL (130-400); RBC 3.26 10^6/uL (3.93-5.22); RDW 14.4 % (11.7-14.6)
[2020-07-17 08:12] LABS: WBC 1.85 10^3/uL (4.4-10.8)
[2020-07-17 08:13] LABS: Diff Comment Diff Reviewed; Hypochromasia 1+; Macrocytosis 1+
[2020-07-17] MEDS: Normal Saline Flush 10 ML SYR IVP (08:28)
[2020-07-19 07:15] LABS: Abs Immature Grans 0.01 10^3/uL (0.0-0.06); Absolute Basophil Count 0.01 10^3/uL (0.0-0.2); Absolute Lymphocyte Count 0.34 10^3/uL (1.2-3.4); HCT 23.6 % (36.0-46.0); HGB 7.7 g/dL (11.2-15.7); Lymphocytes % 35.1; MCH 33.8 pg (27.0-33.0); MCHC 32.6 % (32.0-36.0); MCV 103.5 fL (80-95); MPV 9.7 fL (8.0-11.0); Neutrophils % 62.9; Nucleated RBC 0 %; RBC 2.28 10^6/uL (3.93-5.22)
[2020-07-19 07:26] LABS: ALT 50 U/L (14-59); AST 21 U/L (15-37); Albumin 3.3 g/dL (3.4-5.0); Alkaline Phosphatase 57 U/L (46-116); Anion Gap 11.9 mmol/L (3-11); BUN 16 mg/dL (7-18); Bilirubin, Total 0.5 mg/dL (0.2-1.0); CO2 23.1 mmol/L (21.0-32.0); CREATININE 0.9 mg/dL (0.55-1.02); Calcium 8.6 mg/dL (8.5-10.1); Chloride 105 mmol/L (98-107); Glucose 86 mg/dL (74-106); Potassium 3.8 mmol/L (3.5-5.1); Sodium 140 mmol/L (136-145); Total Protein 7.1 g/dL (6.4-8.2)
[2020-07-19 07:37] LABS: Platelet Count 70 10^3/uL (130-400)
[2020-07-19 07:52] VITALS: BP 133/83; PULSE 96; RESP 18; TEMP 37
[2020-07-19] MEDS: Normal Saline Flush 10 ML SYR IVP (07:52)
[2020-07-19 08:17] LABS: Diff Comment Diff Reviewed; Macrocytosis 2+; Poikilocytes 1+
[2020-07-19 08:20] LABS: WBC 0.97 10^3/uL (4.4-10.8)
[2020-07-19 08:21] LABS: Absolute Neutrophil Count 0.61 10^3/uL (1.2-6.7)
[2020-07-21 07:27] LABS: HCT 29.5 % (36.0-46.0); MCH 33.8 pg (27.0-33.0); MCHC 33.9 % (32.0-36.0); MCV 99.7 fL (80-95); MPV 10.2 fL (8.0-11.0); Nucleated RBC 0 %; RBC 2.96 10^6/uL (3.93-5.22); RDW 13.3 % (11.7-14.6); RDW-SD 48.7 fL
[2020-07-21 07:34] VITALS: BP 133/83; PULSE 96; RESP 18; TEMP 37
[2020-07-21] MEDS: Normal Saline Flush 10 ML SYR IVP (07:45)
[2020-07-21 07:50] LABS: ALT 49 U/L (14-59); AST 19 U/L (15-37); Albumin 2.9 g/dL (3.4-5.0); Alkaline Phosphatase 53 U/L (46-116); Anion Gap 12.1 mmol/L (3-11); BUN 15 mg/dL (7-18); Bilirubin, Total 0.6 mg/dL (0.2-1.0); CO2 21.9 mmol/L (21.0-32.0); CREATININE 0.8 mg/dL (0.55-1.02); Calcium 7.9 mg/dL (8.5-10.1); Chloride 109 mmol/L (98-107); Glucose 90 mg/dL (74-106); Potassium 3.4 mmol/L (3.5-5.1); Sodium 143 mmol/L (136-145); Total Protein 6.2 g/dL (6.4-8.2)
[2020-07-21 08:07] LABS: Absolute Monocyte Count 0.01 10^3/uL (0.1-0.8); Atypical Lymphocytes % 3
[2020-07-21 08:10] LABS: Diff Comment Manual Differential
[2020-07-21 08:11] LABS: Poikilocytes 1+
[2020-07-21 08:16] LABS: WBC 0.44 10^3/uL (4.4-10.8)
[2020-07-21 08:17] LABS: Absolute Neutrophil Count 0.02 10^3/uL (1.2-6.7); Platelet Count 28 10^3/uL (130-400)
[2020-07-24] MEDS: Normal Saline Flush 10 ML SYR IVP (07:17)
[2020-07-24 07:32] LABS: Absolute Eosinophil Count 0.01 10^3/uL (0.0-0.7); Absolute Lymphocyte Count 0.36 10^3/uL (1.2-3.4); Eosinophils % 2.6; HCT 26.3 % (36.0-46.0); HGB 8.9 g/dL (11.2-15.7); Lymphocytes % 94.7; MCH 33.2 pg (27.0-33.0); MCHC 33.8 % (32.0-36.0); MCV 98.1 fL (80-95); MPV 9.7 fL (8.0-11.0); Neutrophils % 2.7; Nucleated RBC 0 %; RBC 2.68 10^6/uL (3.93-5.22); RDW 12.6 % (11.7-14.6); RDW-SD 45.6 fL
[2020-07-24 07:51] LABS: ALT 66 U/L (14-59); AST 25 U/L (15-37); Albumin 3.3 g/dL (3.4-5.0); Alkaline Phosphatase 81 U/L (46-116); Anion Gap 10.5 mmol/L (3-11); BUN 13 mg/dL (7-18); Bilirubin, Total 0.6 mg/dL (0.2-1.0); CO2 23.5 mmol/L (21.0-32.0); CREATININE 1.1 mg/dL (0.55-1.02); Calcium 9.3 mg/dL (8.5-10.1); Chloride 107 mmol/L (98-107); Estimated GFR 55.89 (mL/min/1.73m2); Glucose 96 mg/dL (74-106); Sodium 141 mmol/L (136-145); Total Protein 7.3 g/dL (6.4-8.2)
[2020-07-24 08:13] LABS: Platelet Count 33 10^3/uL (130-400)
[2020-07-24 08:15] LABS: Diff Comment Agrees w/ Instrument
[2020-07-24 08:16] LABS: Hypochromasia 2+; Macrocytosis 1+
[2020-07-24 08:17] LABS: Poikilocytes 1+
[2020-07-24 08:43] LABS: WBC 0.38 10^3/uL (4.4-10.8)
[2020-07-24 08:44] LABS: Absolute Neutrophil Count 0.01 10^3/uL (1.2-6.7)
[2020-07-26 07:14] LABS: HCT 25.8 % (36.0-46.0); HGB 8.8 g/dL (11.2-15.7); MCH 32.7 pg (27.0-33.0); MCHC 34.1 % (32.0-36.0); MCV 95.9 fL (80-95); MPV 12.2 fL (8.0-11.0); Nucleated RBC 0 %; RBC 2.69 10^6/uL (3.93-5.22); RDW 12.5 % (11.7-14.6); RDW-SD 43.6 fL
[2020-07-26 07:27] LABS: ALT 78 U/L (14-59); AST 32 U/L (15-37); Albumin 3.2 g/dL (3.4-5.0); Alkaline Phosphatase 100 U/L (46-116); Anion Gap 12.8 mmol/L (3-11); BUN 11 mg/dL (7-18); Bilirubin, Total 0.5 mg/dL (0.2-1.0); CO2 23.2 mmol/L (21.0-32.0); CREATININE 1.2 mg/dL (0.55-1.02); Calcium 8.9 mg/dL (8.5-10.1); Chloride 101 mmol/L (98-107); Estimated GFR 50.55 (mL/min/1.73m2); Glucose 117 mg/dL (74-106); Potassium 4.2 mmol/L (3.5-5.1); Sodium 137 mmol/L (136-145); Total Protein 7.7 g/dL (6.4-8.2)
[2020-07-26 08:10] LABS: WBC 0.22 10^3/uL (4.4-10.8)
[2020-07-26 08:12] LABS: Platelet Count 17 10^3/uL (130-400)
[2020-07-26 08:15] LABS: Atypical Lymphocytes % 2
[2020-07-26 08:16] LABS: Absolute Monocyte Count 0.02 10^3/uL (0.1-0.8)
[2020-07-26 08:17] LABS: Diff Comment Manual Differential
[2020-07-26 08:18] LABS: Poikilocytes 1+; Polychromasia Present
[2020-07-26] MEDS: Normal Saline Flush 10 ML SYR IVP (08:30)
[2020-07-27 13:15] VITALS: BP 123/82; PULSE 102; RESP 16; TEMP 37.3; O2SAT 99
[2020-07-27 14:03] VITALS: BP 111/72; PULSE 102; RESP 16; TEMP 37.5; O2SAT 100
[2020-07-27] MEDS: Normal Saline Flush 10 ML SYR IVP (15:00)
[2020-07-28 07:17] LABS: HCT 24.5 % (36.0-46.0); HGB 8.5 g/dL (11.2-15.7); MCH 33.1 pg (27.0-33.0); MCHC 34.7 % (32.0-36.0); MCV 95.3 fL (80-95); MPV 11.4 fL (8.0-11.0); RBC 2.57 10^6/uL (3.93-5.22); RDW 12.4 % (11.7-14.6); RDW-SD 43.1 fL
[2020-07-28] MEDS: Normal Saline Flush 10 ML SYR IVP (07:19)
[2020-07-28 07:29] LABS: ALT 56 U/L (14-59); AST 18 U/L (15-37); Albumin 3.2 g/dL (3.4-5.0); Alkaline Phosphatase 95 U/L (46-116); Anion Gap 10.5 mmol/L (3-11); BUN 12 mg/dL (7-18); Bilirubin, Total 0.4 mg/dL (0.2-1.0); CO2 24.5 mmol/L (21.0-32.0); CREATININE 1.2 mg/dL (0.55-1.02); Calcium 9.2 mg/dL (8.5-10.1); Chloride 103 mmol/L (98-107); Estimated GFR 50.55 (mL/min/1.73m2); Glucose 112 mg/dL (74-106); Potassium 3.7 mmol/L (3.5-5.1); Sodium 138 mmol/L (136-145); Total Protein 7.9 g/dL (6.4-8.2)
[2020-07-28 07:52] LABS: Absolute Lymphocyte Count 0.46 10^3/uL (1.2-3.4); Absolute Monocyte Count 0.18 10^3/uL (0.1-0.8); Atypical Lymphocytes % 2; Nucleated RBC 1 %; Platelet Count 47 10^3/uL (130-400)
[2020-07-28 08:21] LABS: Diff Comment Manual Differential; WBC 0.64 10^3/uL (4.4-10.8)
[2020-07-28 08:22] LABS: Polychromasia Present
[2020-08-02] MEDS: Normal Saline Flush 10 ML SYR IVP (07:17)
[2020-08-02 07:30] LABS: Abs Immature Grans 0.11 10^3/uL (0.0-0.06); HCT 25.9 % (36.0-46.0); HGB 8.6 g/dL (11.2-15.7); MCH 33.6 pg (27.0-33.0); MCHC 33.2 % (32.0-36.0); MCV 101.2 fL (80-95); MPV 11.4 fL (8.0-11.0); RBC 2.56 10^6/uL (3.93-5.22); RDW 13.5 % (11.7-14.6); RDW-SD 48.6 fL; WBC 4.89 10^3/uL (4.4-10.8)
[2020-08-02 07:47] LABS: ALT 32 U/L (14-59); AST 15 U/L (15-37); Albumin 3.1 g/dL (3.4-5.0); Alkaline Phosphatase 65 U/L (46-116); Anion Gap 12.7 mmol/L (3-11); BUN 12 mg/dL (7-18); Bilirubin, Total 0.3 mg/dL (0.2-1.0); CO2 23.3 mmol/L (21.0-32.0); CREATININE 1.2 mg/dL (0.55-1.02); Calcium 8.8 mg/dL (8.5-10.1); Chloride 105 mmol/L (98-107); Estimated GFR 50.55 (mL/min/1.73m2); Glucose 95 mg/dL (74-106); Potassium 3.7 mmol/L (3.5-5.1); Sodium 141 mmol/L (136-145); Total Protein 7.5 g/dL (6.4-8.2)
[2020-08-02 08:14] LABS: Bands % 1; Platelet Count 183 10^3/uL (130-400)
[2020-08-02 08:16] LABS: Absolute Eosinophil Count 0.05 10^3/uL (0.0-0.7); Absolute Lymphocyte Count 3.03 10^3/uL (1.2-3.4); Absolute Monocyte Count 1.32 10^3/uL (0.1-0.8); Absolute Neutrophil Count 0.34 10^3/uL (1.2-6.7); Metamyelocytes % 3; Nucleated RBC 3 %
[2020-08-02 08:17] LABS: Diff Comment Manual Differential; Polychromasia Present
[2020-08-04] MEDS: Normal Saline Flush 10 ML SYR IVP (07:08)
[2020-08-04 07:12] LABS: HCT 26.7 % (36.0-46.0); HGB 8.9 g/dL (11.2-15.7); MCH 34.1 pg (27.0-33.0); MCHC 33.3 % (32.0-36.0); MCV 102.3 fL (80-95); MPV 10.7 fL (8.0-11.0); RBC 2.61 10^6/uL (3.93-5.22); RDW-SD 49.1 fL; WBC 4.59 10^3/uL (4.4-10.8)
[2020-08-04 07:29] LABS: ALT 30 U/L (14-59); AST 17 U/L (15-37); Albumin 3.2 g/dL (3.4-5.0); Alkaline Phosphatase 61 U/L (46-116); Anion Gap 11.7 mmol/L (3-11); BUN 10 mg/dL (7-18); Bilirubin, Total 0.3 mg/dL (0.2-1.0); CO2 24.3 mmol/L (21.0-32.0); CREATININE 1.2 mg/dL (0.55-1.02); Calcium 8.7 mg/dL (8.5-10.1); Chloride 104 mmol/L (98-107); Estimated GFR 50.55 (mL/min/1.73m2); Glucose 109 mg/dL (74-106); Potassium 3.5 mmol/L (3.5-5.1); Sodium 140 mmol/L (136-145); Total Protein 7.3 g/dL (6.4-8.2)
[2020-08-04 08:01] LABS: Absolute Basophil Count 0.09 10^3/uL (0.0-0.2); Absolute Lymphocyte Count 1.97 10^3/uL (1.2-3.4); Absolute Monocyte Count 0.78 10^3/uL (0.1-0.8); Bands % 6; Nucleated RBC 0 %; Platelet Count 254 10^3/uL (130-400)
[2020-08-04 08:02] LABS: Anisocytosis 1+; Diff Comment Manual Differential; Hypochromasia 2+; Macrocytosis 1+; Metamyelocytes % 4; Polychromasia Present
[2020-08-04 08:03] LABS: Poikilocytes 2+
[2020-08-04 11:11] LABS: Absolute Neutrophil Count 1.56 10^3/uL (1.2-6.7)
[2020-08-07] MEDS: Normal Saline Flush 10 ML SYR IVP (07:16)
[2020-08-07 07:35] LABS: Abs Immature Grans 0.03 10^3/uL (0.0-0.06); Absolute Basophil Count 0.02 10^3/uL (0.0-0.2); Absolute Lymphocyte Count 2.25 10^3/uL (1.2-3.4); Absolute Monocyte Count 1.01 10^3/uL (0.1-0.8); Absolute Neutrophil Count 1.93 10^3/uL (1.2-6.7); Basophils % 0.4; HCT 29.2 % (36.0-46.0); HGB 9.5 g/dL (11.2-15.7); Immature Grans % 0.6; Lymphocytes % 42.9; MCH 34.3 pg (27.0-33.0); MCHC 32.5 % (32.0-36.0); MCV 105.4 fL (80-95); MPV 10.4 fL (8.0-11.0); Monocytes % 19.3; Neutrophils % 36.8; Nucleated RBC 2 %; Platelet Count 356 10^3/uL (130-400); RBC 2.77 10^6/uL (3.93-5.22); RDW 17.4 % (11.7-14.6); RDW-SD 57.3 fL; WBC 5.24 10^3/uL (4.4-10.8)
[2020-08-07 07:48] LABS: ALT 30 U/L (14-59); AST 16 U/L (15-37); Albumin 3.3 g/dL (3.4-5.0); Alkaline Phosphatase 60 U/L (46-116); Anion Gap 11.5 mmol/L (3-11); BUN 11 mg/dL (7-18); Bilirubin, Total 0.3 mg/dL (0.2-1.0); CO2 24.5 mmol/L (21.0-32.0); CREATININE 1.2 mg/dL (0.55-1.02); Calcium 8.6 mg/dL (8.5-10.1); Chloride 105 mmol/L (98-107); Estimated GFR 50.55 (mL/min/1.73m2); Glucose 91 mg/dL (74-106); Potassium 3.4 mmol/L (3.5-5.1); Sodium 141 mmol/L (136-145); Total Protein 7.4 g/dL (6.4-8.2)
[2020-08-10] MEDS: Normal Saline Flush 10 ML SYR IVP (07:04)
[2020-08-10 07:22] LABS: Abs Immature Grans 0.04 10^3/uL (0.0-0.06); Absolute Basophil Count 0.02 10^3/uL (0.0-0.2); Absolute Lymphocyte Count 2.01 10^3/uL (1.2-3.4); Absolute Monocyte Count 0.69 10^3/uL (0.1-0.8); Absolute Neutrophil Count 2.29 10^3/uL (1.2-6.7); Basophils % 0.4; HCT 31.1 % (36.0-46.0); HGB 10.1 g/dL (11.2-15.7); Immature Grans % 0.8; Lymphocytes % 39.8; MCH 34.5 pg (27.0-33.0); MCHC 32.5 % (32.0-36.0); MCV 106.1 fL (80-95); MPV 10.3 fL (8.0-11.0); Monocytes % 13.7; Neutrophils % 45.3; Nucleated RBC 1 %; Platelet Count 378 10^3/uL (130-400); RBC 2.93 10^6/uL (3.93-5.22); RDW 18.5 % (11.7-14.6); RDW-SD 71.3 fL; WBC 5.05 10^3/uL (4.4-10.8)
[2020-08-10 07:29] LABS: ALT 31 U/L (14-59); AST 15 U/L (15-37); Albumin 3.2 g/dL (3.4-5.0); Alkaline Phosphatase 59 U/L (46-116); Anion Gap 9.6 mmol/L (3-11); BUN 11 mg/dL (7-18); Bilirubin, Total 0.4 mg/dL (0.2-1.0); CO2 25.4 mmol/L (21.0-32.0); CREATININE 1.1 mg/dL (0.55-1.02); Calcium 8.8 mg/dL (8.5-10.1); Chloride 106 mmol/L (98-107); Estimated GFR 55.89 (mL/min/1.73m2); Glucose 126 mg/dL (74-106); Potassium 3.7 mmol/L (3.5-5.1); Sodium 141 mmol/L (136-145); Total Protein 7.2 g/dL (6.4-8.2)
[2020-08-14] MEDS: Normal Saline Flush 10 ML SYR IVP (07:30)
[2020-08-14 07:39] LABS: Abs Immature Grans 0.05 10^3/uL (0.0-0.06); Absolute Basophil Count 0.02 10^3/uL (0.0-0.2); Absolute Eosinophil Count 0.12 10^3/uL (0.0-0.7); Absolute Lymphocyte Count 2.18 10^3/uL (1.2-3.4); Absolute Neutrophil Count 3.79 10^3/uL (1.2-6.7); Basophils % 0.3; Eosinophils % 1.7; HCT 33.4 % (36.0-46.0); HGB 10.8 g/dL (11.2-15.7); Immature Grans % 0.7; Lymphocytes % 31.3; MCH 34.7 pg (27.0-33.0); MCHC 32.3 % (32.0-36.0); MCV 107.4 fL (80-95); MPV 10.4 fL (8.0-11.0); Monocytes % 11.5; Neutrophils % 54.5; Nucleated RBC 0 %; Platelet Count 378 10^3/uL (130-400); RBC 3.11 10^6/uL (3.93-5.22); RDW 18.3 % (11.7-14.6); RDW-SD 71.9 fL; WBC 6.96 10^3/uL (4.4-10.8)
[2020-08-14 07:48] LABS: ALT 24 U/L (14-59); AST 13 U/L (15-37); Albumin 3.4 g/dL (3.4-5.0); Alkaline Phosphatase 54 U/L (46-116); Anion Gap 11.4 mmol/L (3-11); BUN 14 mg/dL (7-18); Bilirubin, Total 0.3 mg/dL (0.2-1.0); CO2 24.6 mmol/L (21.0-32.0); Calcium 8.9 mg/dL (8.5-10.1); Chloride 104 mmol/L (98-107); Glucose 97 mg/dL (74-106); Sodium 140 mmol/L (136-145); Total Protein 7.6 g/dL (6.4-8.2)
== END 2020-08-16 23:59 | disposition home or self-care (01) ==
LOC: INF 03:01
PROVIDERS: Physician Assistant; PCP Physician Assistant Medical; Visit Provider Student in an Organized Health Care Education/Training Program
DX: C92.02 Acute myeloblastic leukemia, in relapse (principal); Z45.2 Encounter for adjustment and management of vascular access device
CPT/HCPCS: 36430; 36591; 80053; 86900; 86901; 86945; 85025; P9035

== ENCOUNTER 2020-08-17 02:54 | Outpatient (RCR) | payer MEDICAID, SELFPAY ==
[2020-08-17 00:05] VITALS: BP 111/72; PULSE 102; RESP 16; TEMP 37.5
[2020-08-17 07:22] LABS: Abs Immature Grans 0.03 10^3/uL (0.0-0.06); Absolute Basophil Count 0.02 10^3/uL (0.0-0.2); Absolute Eosinophil Count 0.01 10^3/uL (0.0-0.7); Absolute Monocyte Count 0.73 10^3/uL (0.1-0.8); Absolute Neutrophil Count 4.38 10^3/uL (1.2-6.7); Basophils % 0.3; Eosinophils % 0.1; HCT 33.9 % (36.0-46.0); Immature Grans % 0.4; Lymphocytes % 26.9; MCH 34.6 pg (27.0-33.0); MCHC 32.4 % (32.0-36.0); MCV 106.6 fL (80-95); MPV 9.9 fL (8.0-11.0); Monocytes % 10.3; Nucleated RBC 0 %; Platelet Count 387 10^3/uL (130-400); RBC 3.18 10^6/uL (3.93-5.22); RDW 17.3 % (11.7-14.6); WBC 7.07 10^3/uL (4.4-10.8)
[2020-08-17] MEDS: Normal Saline Flush 10 ML SYR IVP (07:32)
[2020-08-17 07:38] LABS: ALT 24 U/L (14-59); AST 14 U/L (15-37); Albumin 3.2 g/dL (3.4-5.0); Alkaline Phosphatase 53 U/L (46-116); Anion Gap 9.3 mmol/L (3-11); BUN 11 mg/dL (7-18); Bilirubin, Total 0.4 mg/dL (0.2-1.0); CO2 26.7 mmol/L (21.0-32.0); Chloride 104 mmol/L (98-107); Glucose 99 mg/dL (74-106); Potassium 3.9 mmol/L (3.5-5.1); Sodium 140 mmol/L (136-145); Total Protein 7.5 g/dL (6.4-8.2)
[2020-08-17 07:43] LABS: Diff Comment RBC Morph Reviewed
[2020-08-17 07:44] LABS: Macrocytosis 1+; Polychromasia Present
== END 2020-09-15 23:59 | disposition home or self-care (01) ==
LOC: INF 02:54
PROVIDERS: Physician Assistant; PCP Physician Assistant Medical; Visit Provider Student in an Organized Health Care Education/Training Program
DX: C92.00 Acute myeloblastic leukemia, not having achieved remission (principal); Z45.2 Encounter for adjustment and management of vascular access device
CPT/HCPCS: 36591; 80053; 85025

== ENCOUNTER 2020-08-28 03:19 | Outpatient (CLI) | payer MEDICAID, SELFPAY ==
[2020-08-28 21:35] LABS: COVID-19 PCR Negative (Negative)
== END 2020-08-28 03:20 | disposition home or self-care (01) ==
LOC: LBO 03:19
PROVIDERS: PCP Physician Assistant Medical; Visit Provider Internal Medicine
DX: Z20.822 Contact with and (suspected) exposure to COVID-19 (principal); Z01.818 Encounter for other preprocedural examination
CPT/HCPCS: 87635

== ENCOUNTER 2020-10-13 04:09 | Outpatient (RCR) | payer MEDICAID, SELFPAY ==
[2020-09-16 00:04] VITALS: BP 111/72; PULSE 102; RESP 16; TEMP 37.5
[2020-09-28] MEDS: Normal Saline 1,000 ML 250 ML IV (07:05)
[2020-09-28] MEDS: Normal Saline Flush 10 ML SYR IVP (07:10)
[2020-10-06] MEDS: Normal Saline 1,000 ML 250 ML IV (07:15)
[2020-10-06 07:23] VITALS: BP 109/70; PULSE 95; RESP 16; TEMP 36; O2SAT 99
[2020-10-06] MEDS: Normal Saline Flush 10 ML SYR IVP (07:26)
[2020-10-11] MEDS: Normal Saline Flush 10 ML SYR IVP (07:05)
[2020-10-11] MEDS: Normal Saline 1,000 ML 250 ML IV (07:05)
[2020-10-13] MEDS: Normal Saline 1,000 ML 250 ML IV (07:08)
[2020-10-13] MEDS: Normal Saline Flush 10 ML SYR IVP (07:08)
== END 2020-10-16 23:59 | disposition home or self-care (01) ==
LOC: INF 04:09
PROVIDERS: PCP Physician Assistant Medical; Visit Provider Family Medicine
DX: C92.02 Acute myeloblastic leukemia, in relapse (principal); Z45.2 Encounter for adjustment and management of vascular access device
CPT/HCPCS: 36430; 96360; 96361; 96523

== ENCOUNTER 2020-11-03 02:18 | Outpatient (RCR) | payer MEDICAID, SELFPAY ==
[2020-10-17 00:03] VITALS: BP 109/70; PULSE 95; RESP 16; TEMP 36
[2020-11-03] MEDS: Normal Saline 500 ML 250 ML IV (12:20)
[2020-11-03] MEDS: Normal Saline Flush 10 ML SYR IVP ×2 (12:21→14:26)
== END 2020-11-15 23:59 | disposition home or self-care (01) ==
LOC: INF 02:18
PROVIDERS: PCP Physician Assistant Medical; Visit Provider Family Medicine
DX: C92.02 Acute myeloblastic leukemia, in relapse (principal); Z94.84 Stem cells transplant status
CPT/HCPCS: 96360; 96361; 96523

== ENCOUNTER 2020-11-21 03:41 | Outpatient (RCR) | payer MEDICAID, SELFPAY ==
[2020-11-16 00:17] VITALS: BP 109/70; PULSE 95; RESP 16; TEMP 36
[2020-11-21 07:11] LABS: Abs Immature Grans 0.02 10^3/uL (0.0-0.06); Absolute Basophil Count 0.03 10^3/uL (0.0-0.2); Absolute Eosinophil Count 0.04 10^3/uL (0.0-0.7); Absolute Lymphocyte Count 1.35 10^3/uL (1.2-3.4); Absolute Monocyte Count 0.46 10^3/uL (0.1-0.8); Absolute Neutrophil Count 1.81 10^3/uL (1.2-6.7); Basophils % 0.8; Eosinophils % 1.1; HCT 37.1 % (36.0-46.0); Immature Grans % 0.5; Lymphocytes % 36.4; MCH 30.4 pg (27.0-33.0); MCHC 32.3 % (32.0-36.0); MCV 93.9 fL (80-95); MPV 9.4 fL (8.0-11.0); Monocytes % 12.4; Neutrophils % 48.8; Nucleated RBC 0 %; Platelet Count 154 10^3/uL (130-400); RBC 3.95 10^6/uL (3.93-5.22); RDW 14.6 % (11.7-14.6); RDW-SD 50.3 fL; WBC 3.71 10^3/uL (4.4-10.8)
[2020-11-21 07:25] LABS: ALT 67 U/L (14-59); AST 49 U/L (15-37); Albumin 3.3 g/dL (3.4-5.0); Alkaline Phosphatase 42 U/L (46-116); Anion Gap 8.4 mmol/L (3-11); BUN 8 mg/dL (7-18); Bilirubin, Total 0.4 mg/dL (0.2-1.0); CO2 25.6 mmol/L (21.0-32.0); CREATININE 1.1 mg/dL (0.55-1.02); Calcium 8.9 mg/dL (8.5-10.1); Chloride 105 mmol/L (98-107); Estimated GFR 55.59 (mL/min/1.73m2); Glucose 101 mg/dL (74-106); Potassium 3.6 mmol/L (3.5-5.1); Sodium 139 mmol/L (136-145); Total Protein 7.1 g/dL (6.4-8.2)
[2020-11-21] MEDS: Normal Saline Flush 10 ML SYR IVP (07:59)
[2020-11-23 00:22] LABS: CMV DNA Detect/Quant, P 538 IU/mL (Undetected)
[2020-11-23 21:05] LABS: EBV DNA Detect/Quant, P <100 IU/mL (Undetected)
== END 2020-12-16 23:59 | disposition home or self-care (01) ==
LOC: INF 03:41
PROVIDERS: Internal Medicine; PCP Physician Assistant Medical; Visit Provider Family Medicine
DX: R05 Cough (principal); Z45.2 Encounter for adjustment and management of vascular access device; C92.02 Acute myeloblastic leukemia, in relapse
CPT/HCPCS: 36591; 80053; 87799; 85025; 87497

== ENCOUNTER 2020-11-22 19:10 | Outpatient (REF) | payer MEDICAID, SELFPAY ==
[2020-11-22 16:42] LABS: Bilirubin Negative (Negative); Blood Small (Negative); Clarity Clear (Clear); Glucose Negative (Negative); Ketones Negative (Negative); Leukocyte Esterase Negative (Negative); Nitrite Negative (Negative); Urobilinogen 0.2 EU/dL (Up TO 0.2); pH 6.5 (5-8)
[2020-11-22 17:03] LABS: Bacteria Few HPF (Negative); C & S Indicated? No/Sq. Contamination; Casts Negative LPF (Negative); Crystals Negative HPF (Negative); Epithelial Cells Moderate HPF (Negative); Mucus Negative (Negative); Other Cells Moderate Renal (Negative); RBC 20-50 HPF (0-2); WBC 20-50 HPF (0-5)
== END 2020-11-22 19:11 | disposition home or self-care (01) ==
LOC: LBO 19:10
PROVIDERS: PCP Physician Assistant Medical; Visit Provider Internal Medicine
DX: Z94.81 Bone marrow transplant status (principal)
CPT/HCPCS: 81003; 81015

== ENCOUNTER 2021-01-03 02:00 | Outpatient (CLI) | payer MEDICAID, SELFPAY ==
[2021-01-03 21:49] LABS: COVID-19 RT-PCR UVMMC Result Negative (Negative)
== END 2021-01-03 02:01 | disposition home or self-care (01) ==
PROVIDERS: PCP Physician Assistant Medical; Visit Provider Internal Medicine
DX: Z20.822 Contact with and (suspected) exposure to COVID-19 (principal)
CPT/HCPCS: U0003

== ENCOUNTER 2021-04-18 00:47 | Outpatient (CLI) | payer MEDICAID, SELFPAY ==
[2021-04-18] MEDS: Omnipaque 350 MG/ML 50 ML BTL IJ (12:15)
--- NOTE | 2021-04-18 14:00 | DI.CT_ITS ---
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 Pulmonary parenchyma: No consolidation or dominant measurable mass. No architectural distortion. Visualized thyroid gland: Unremarkable. Mediastinum and Katarzyna: No dominant adenopathy or fluid collection. The esophagus is unremarkable. The re is unchanged soft tissue in the anterior mediastinum likely reflecting residual thymic tissue. Pleura: No effusion or pneumothorax. Heart: The heart is not dilated. No coronary artery calcifications are seen. No pericardial effusion. Pulmonary arteries: No evidence of a pulmonary embolus. Aorta: Thoracic aorta non-dilated. Lymph nodes: Within normal limits. Tubes, Catheters, and Lines: The tip of the [id number]-[id number]-Piwj is seen in the right atrium. Soft tissues: Unremarkable. Bones:Within normal limits for the patient's age. ABDOMEN: Liver: Normal density. No measurable mass. Portal, Superior Mesenteric, and Splenic Veins: Unremarkable. Gallbladder and Biliary Tract: No radiodense calculus or dilation. Pancreas: Normal density, no abnormal calcifications or inflammatory process. Spleen: Normal. Adrenals: No masses seen. Kidneys: Normal size, contour and axis. No radiodense stones or obstructive uropathy. No masses seen. Abdominal Aorta: Abdominal portion non-dilated. Bowel: No obstruction or bowel wall thickening. Appendix is unremarkable. Peritoneal Cavity: No ascites, collection or mesenteric inflammatory response. No free air. Lymph Nodes: Within normal limits. Bones: Within normal limits for the patient's age. Soft Tissues: Unremarkable. PELVIS: Bladder: Symmetric distention, no gross wall thickening. Reproductive Organs: Unremarkable as visualized. Lymph Nodes: Within normal limits. Bones: Within normal limits. IMPRESSION: 1. No evidence of abdominal or pelvic adenopathy. 2. No evidence of thoracic adenopathy. 3. Stable anterior mediastinal soft tissue likely thymic in origin. RADIATION DOSE DELIVERED: 2,094.19mGy.cm Total DLP DATA REPOSITORY: All CT scans at this facility are submitted to the National Radiology Data Registry (NRDR) Dose Index Registry (DIR) with the [employer] (ACR). RADIATION OPTIMIZATION: All CT scans at this facility use at least one of these dose optimization te chniques: automated exposure control; mA and/or kV adjustment per patient size (includes targeted exa ms where dose is matched to clinical indication); or iterative reconstruction.
== END 2021-04-18 01:07 ==
PROVIDERS: PCP Physician Assistant Medical; Visit Provider Internal Medicine
DX: D72.820 Lymphocytosis (symptomatic) (principal); Z94.81 Bone marrow transplant status
CPT/HCPCS: 74177; 71260; Q9967

== ENCOUNTER 2021-04-18 01:18 | Outpatient (RCR) | payer MEDICAID, SELFPAY ==
[2021-04-18] MEDS: Normal Saline Flush 10 ML SYR IVP (12:01)
== END 2021-05-18 23:59 | disposition home or self-care (01) ==
LOC: INF 01:18
PROVIDERS: PCP Physician Assistant Medical; Visit Provider Internal Medicine
DX: C92.00 Acute myeloblastic leukemia, not having achieved remission (principal); Z94.84 Stem cells transplant status; Z45.2 Encounter for adjustment and management of vascular access device
CPT/HCPCS: 96523

== ENCOUNTER 2021-07-11 15:07 | Outpatient (CLI) | payer MEDICAID, SELFPAY ==
--- NOTE | 2021-07-11 15:35 | DI.RAD_ITS ---
Exam(s) XR TOE LT FIFTH EXAM: XR TOE LT FIFTH CLINICAL HISTORY: TOE PAIN, M79.676, S/P CATCHING ON EDGE OF TABLE, MOST TTP OVER MTP, ? FX. TECHNIQUE: 2D digital imaging was performed. COMPARISON: No exams were available for comparison FINDINGS: BONES: No acute fracture is present. No bony destructive lesion is seen. JOINTS: No dislocation present. SOFT TISSUE: Normal. IMPRESSION: No evidence of acute fracture, dislocation, or subluxation. DATA REPOSITORY: RADIATION DOSE DELIVERED:
== END 2021-07-11 15:27 ==
PROVIDERS: PCP Physician Assistant Medical; Visit Provider Physician Assistant Medical
DX: M79.675 Pain in left toe(s) (principal)
CPT/HCPCS: 73660

== ENCOUNTER → 2021-11-08 10:05 | Outpatient (CLI) | payer MEDICAID, SELFPAY ==
--- NOTE | 2021-11-08 | DI.US_ITS ---
Exam(s) US UPPER EXTREMITY VENOUS RT EXAM: US UPPER EXTREMITY VENOUS RT CLINICAL HISTORY: RT ARM PAIN, M79.601, RADIATING TO ELBOW, H/O BASILIC VEIN THROMBOSIS, ?DVT. TECHNIQUE: Ultrasound examination of the right upper extremity venous system(s) is performed using g rayscale, color-flow, and spectral Doppler analysis. COMPARISON: No exams were available for comparison FINDINGS: The right internal jugular, axillary, subclavian, cephalic, basilic, brachial, radial, and ulnar vein s are patent without evidence of thrombosis. IMPRESSION: No DVT. DATA REPOSITORY:
== END ==
PROVIDERS: PCP Physician Assistant Medical; Visit Provider Nurse Practitioner Adult Health
DX: M79.601 Pain in right arm (principal); Z86.718 Personal history of other venous thrombosis and embolism
CPT/HCPCS: 93971

== ENCOUNTER 2021-11-28 02:22 | Outpatient (RCR) | payer MEDICAID, SELFPAY ==
[2021-11-28] MEDS: Normal Saline Flush 10 ML SYR IVP (09:01)
== END 2021-12-16 23:59 | disposition home or self-care (01) ==
LOC: INF 02:22
PROVIDERS: PCP Physician Assistant Medical; Visit Provider Internal Medicine
DX: Z45.2 Encounter for adjustment and management of vascular access device (principal)
CPT/HCPCS: 96523

== ENCOUNTER → 2022-02-12 01:39 | Outpatient (CLI) | payer MEDICAID, SELFPAY ==
--- NOTE | 2022-02-12 | DI.CT_ITS ---
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 TECHNIQUE: Imaging Protocol: Axial computed tomography images with coronal and sagittal reformatted images were created and reviewed. CONTRAST MATERIAL: Intravenous: Omnipaque 350. Contrast Volume: 100 ML COMPARISON: DX from 01/09/2022 FINDINGS: Bones: No acute or healing fracture or dislocation is seen. The right SI joints are incompletely vi sualized. There is mild sclerosis seen on the iliac side of the visualized SI joint. No erosions or ankylosis is seen. Bony alignment is satisfactory. No cellulitic or osteomyelitic changes are iden tified. There is no evidence of joint space narrowing or cystic degeneration seen. No lytic or scler otic lesions are identified. Soft Tissues: Normal. Enhancement: No abnormal enhancement is identified. IMPRESSION: 1. Unremarkable right hip. 2. Mild sclerosis on the iliac side of the visualized SI joint. No erosions or ankylosis is seen. T he sacroiliac joint is incompletely visualized. If there is continued concern, a CT or MRI may be ob tained for further evaluation. 3. Unremarkable soft tissues. No mass or enhancing lesion is seen. Intramuscular injury would be be tter evaluated with an MRI examination. RADIATION DOSE DELIVERED: 225.66mGy.cm Total DLP 225.66mGy.cm Total DLP DATA REPOSITORY: All CT scans at this facility are submitted to the National Radiology Data Registry (NRDR) Dose Index Registry (DIR) with the [employer] (ACR). RADIATION OPTIMIZATION: All CT scans at this facility use at least one of these dose optimization te chniques: automated exposure control; mA and/or kV adjustment per patient size (includes targeted exa ms where dose is matched to clinical indication); or iterative reconstruction.
[2022-02-12] MEDS: Omnipaque 350 MG/ML 500 ML BTL-Imaging package IJ (10:55)
[2022-02-12] MEDS: Normal Saline Flush 10 ML SYR IVP (10:55)
== END ==
PROVIDERS: PCP Physician Assistant Medical; Visit Provider Internal Medicine
DX: M25.551 Pain in right hip (principal); Z94.81 Bone marrow transplant status
CPT/HCPCS: 73701

== ENCOUNTER 2022-02-12 02:43 | Outpatient (RCR) | payer MEDICAID, SELFPAY ==
[2022-02-12] MEDS: Normal Saline Flush 10 ML SYR IVP (10:41)
[2022-02-12 11:04] LABS: Hemoglobin A1C 5.6 % (<5.7)
[2022-02-12 11:13] LABS: Creatine Kinase 147 U/L (26-192); FREE T4 0.95 ng/dL (0.76-1.46)
[2022-02-12 11:52] LABS: Vitamin B12 363 pg/mL (193-986)
== END 2022-02-15 23:59 | disposition home or self-care (01) ==
LOC: INF 02:43
PROVIDERS: PCP Physician Assistant Medical; Visit Provider Internal Medicine
DX: Z45.2 Encounter for adjustment and management of vascular access device (principal); M79.18 Myalgia, other site; R53.83 Other fatigue; R94.6 Abnormal results of thyroid function studies; C92.00 Acute myeloblastic leukemia, not having achieved remission; Z94.81 Bone marrow transplant status
CPT/HCPCS: 36591; 82550; 82607; 83036; 84439

== ENCOUNTER 2022-03-11 14:49 | Outpatient (CLI) | payer MEDICAID, SELFPAY ==
--- NOTE | 2022-03-11 14:58 | W.CARDEVENT ---
Date of service: 03/11/22 Time of Service: 14:58 Cardiac Event Recorder Referring Provider:: Doreen Yung Indications:: Palpitations Cardiac Event Note: This is a 30-day event monitor ordered for palpitations and Rhythm throughout was sinus with an average heart rate of 92. Maximum heart rate was 113. There was no bradycardia There were rare atrial premature beats. There were rare atrial pairs, several self-limited atrial runs 3-5 beats in duration There were rare ventricular ectopic beats, rare couplets, 1 triplet and one 6 beat run of nonsustained ventricular tachycardia There was no atrial fibrillation, no high-grade AV block, no pauses greater than 3 seconds Patient symptoms did not correspond to any dysrhythmia
== END 2022-03-11 14:50 | disposition home or self-care (01) ==
LOC: CARDOPNVT 14:49
PROVIDERS: PCP Physician Assistant Medical; Visit Provider Internal Medicine Cardiovascular Disease
DX: R00.2 Palpitations (principal); I49.1 Atrial premature depolarization; I49.3 Ventricular premature depolarization

== ENCOUNTER 2022-03-13 02:56 | Outpatient (RCR) | payer MEDICAID, SELFPAY ==
[2022-03-13] MEDS: Normal Saline Flush 10 ML SYR IVP (07:33)
== END 2022-03-18 23:59 | disposition home or self-care (01) ==
LOC: INF 02:56
PROVIDERS: PCP Physician Assistant Medical; Visit Provider Internal Medicine
DX: Z45.2 Encounter for adjustment and management of vascular access device (principal)
CPT/HCPCS: 96523

== ENCOUNTER 2022-05-21 12:47 | Outpatient (CLI) | payer MEDICAID, SELFPAY ==
--- NOTE | 2022-05-21 12:45 | RT.EKG_ITS ---
APPROVED REPORT Exam: Resting ECG Reason for Exam: evaluation of cardiac status Patient Location: O HR:89 bpm ECG Measurements Heart Rate 89 AXIS WV 104 P -4 QRSd 83 QRS -7 QT 362 T 40 QTc 441 Conclusion Sinus rhythm...normal P axis, V-rate 50- 99 Low voltage Late transition
== END 2022-05-21 12:48 | disposition home or self-care (01) ==
LOC: DI.CARD 12:48
PROVIDERS: PCP Physician Assistant Medical; Visit Provider Internal Medicine Cardiovascular Disease
DX: R06.02 Shortness of breath (principal)
CPT/HCPCS: 93010

== ENCOUNTER 2022-05-29 01:43 | Outpatient (CLI) | payer MEDICAID, SELFPAY ==
--- NOTE | 2022-05-29 | DI.US_ITS ---
Exam(s) US ABDOMEN EXAM: US ABDOMEN CLINICAL HISTORY: RUQ PAIN R10.11 TECHNIQUE: Ultrasound abdomen performed using standard protocol. COMPARISON: CT CT CHEST/ABD/PEL W from 04/18/2021 FINDINGS: LIVER: Normal size and echogenicity.. Normal echogenicity. No focal liver lesions are seen.. GALLBLADDER: No evidence of cholelithiasis. No evidence of wall thickening. No pericholecystic fluid identified. ROBERT'S SIGN: Negative. BILIARY SYSTEM: No intrahepatic or extrahepatic biliary ductal dilation. KIDNEYS: Kidneys are symmetric in size. No evidence of renal calculi. No evidence of hydronephrosis. No renal mass or cyst identified. PANCREAS: Normal where visualized. SPLEEN: Not enlarged. ABDOMINAL AORTA AND IVC: Visualized portions normal caliber. ASCITES: None seen. IMPRESSION: Normal sonographic appearance of the upper abdomen. DATA REPOSITORY:
== END 2022-05-29 02:03 ==
LOC: DI 01:44
PROVIDERS: PCP Physician Assistant Medical; Visit Provider Internal Medicine
DX: R10.11 Right upper quadrant pain (principal)
CPT/HCPCS: 76700

== ENCOUNTER 2022-05-29 01:44 | Outpatient (CLI) | payer MEDICAID, SELFPAY ==
--- NOTE | 2022-05-29 | DI.MRI_ITS ---
Exam(s) MR PELVIS WO EXAM: MR PELVIS WO CLINICAL HISTORY: SACROILIAC JOINT DYSFUNCTION M53.3, EVALUATION SI JOINTS TECHNIQUE: Multiplanar multisequence MRI of Pelvis was performed COMPARISON: DX pelvis from 01/09/[address] LOWER EXTREMITY RT W from 02/12/2022 FINDINGS: Bones: There is no fracture or contusion pattern. There is overall low T1 signal in the bone marrow which could indicate red marrow reconversion. Clinical correlation is recommended. Degenerative disc changes are seen at the L4-5 and L5-S1 levels. Hip joints are unremarkable.. The SI joints show no evidence of fluid. There is no visible bony erosion or marrow edema. There is minimal spurring and adjacent sclerosis. Musculotendinous structures: Musculotendinous structures demonstrate no abnormality. Intrapelvic structures demonstrate no significant abnormality. IMPRESSION: Minimal degenerative changes of the SI joints. No evidence of fluid or of inflammatory erosions. DATA REPOSITORY:
== END 2022-05-29 02:04 ==
LOC: DI 01:44
PROVIDERS: PCP Physician Assistant Medical; Visit Provider Physician Assistant Medical
DX: M53.3 Sacrococcygeal disorders, not elsewhere classified (principal)
CPT/HCPCS: 72195

== ENCOUNTER 2022-06-18 02:31 | Outpatient (RCR) | payer MEDICAID, SELFPAY ==
[2022-05-21] MEDS: Normal Saline Flush 10 ML SYR IVP (13:42)
[2022-05-21 14:20] LABS: NT-proBNP 83 pg/mL (<300)
[2022-06-18] MEDS: Normal Saline Flush 10 ML SYR IVP (08:12)
[2022-06-18 08:44] LABS: Anion Gap 10.5 mmol/L (3-11); BUN 12 mg/dL (7-18); CO2 24.5 mmol/L (21.0-32.0); CREATININE 1.1 mg/dL (0.55-1.02); Calcium 8.9 mg/dL (8.5-10.1); Chloride 107 mmol/L (98-107); Estimated GFR 65.55 (mL/min/1.73m2); Glucose 97 mg/dL (74-106); Magnesium 2.2 mg/dL (1.8-2.4); Sodium 142 mmol/L (136-145)
== END 2022-06-18 23:59 | disposition home or self-care (01) ==
LOC: INF 02:31
PROVIDERS: PCP Physician Assistant Medical; Visit Provider Internal Medicine
DX: Z45.2 Encounter for adjustment and management of vascular access device (principal); R06.00 Dyspnea, unspecified; R25.2 Cramp and spasm; Z94.81 Bone marrow transplant status; C91.00 Acute lymphoblastic leukemia not having achieved remission
CPT/HCPCS: 36591; 80048; 83735; 83880

== ENCOUNTER 2022-07-11 00:54 | Outpatient (CLI) | payer MEDICAID, SELFPAY ==
--- NOTE | 2022-07-11 08:00 | DI.US_ITS ---
APPROVED REPORT EXAM: Comprehensive 2D, Doppler, and color-flow Echocardiogram Patient Location: Out-Patient Director Learning Services: Lynne Lehman RDCS (AE) Indications: LV function, chemo, f/u exam , SOB Other Information Study Quality: Adequate Conclusion Normal left ventricular wall thickness and chamber size. Estimated ejection fraction is 55 to 60%. Wall motion is normal Normal right ventricular size and systolic function Both atria are normal in size There is no structural or hemodynamically significant valvular disease Wall motion Left Ventricle The left ventricle is normal size. The left ventricular systolic function is normal. The left ventric ular ejection fraction is within the normal range. There is normal left ventricular wall thickness. T here is normal LV segmental wall motion. There is no ventricular septal defect visualized. LVEF is 58 %. Right Ventricle Right ventricle is grossly normal in size. Right ventricular systolic function is grossly normal. Atria The left atrium size is normal. The right atrium size is normal. The interatrial septum is intact wit h no evidence for an atrial septal defect. Aortic Valve The aortic valve is normal in structure. Aortic valve is trileaflet. There is no aortic valvular sten osis. No aortic regurgitation is present. Mitral Valve The mitral valve is normal in structure. No evidence of mitral valve stenosis. Trace mitral regurgita tion. Tricuspid Valve The tricuspid valve is normal in structure. There is no tricuspid valve stenosis. Trace tricuspid reg urgitation. Unable to assess PA pressure. Pulmonic Valve Pulmonic valve is not well visualized. Great Vessels The aortic root is normal in size. The ascending aorta is normal in size. Aortic arch is normal in ca liber. IVC is normal in size and collapses >50% with inspiration. Pericardium There is no pericardial effusion. 2D Dimensions IVSD d PLAX 0.66 cm F: 0.6-1.0 LV Vol A2C d MOD 69.0 mL LVPW d PLAX 0.68 cm F: 0.6 - 1.0 LV Vol A4C d MOD 110.9 mL LVID d PLAX 4.56 cm F: 3.8 - 5.2 LA vol/ BSA A2C s A-L 13.5 mL/m2 LVDs 2.95 cm F: 2.2 - 3.5 LA vol/ BSA A4C s A-L 14.6 mL/m2 Ao Root d 3.00 cm F: 2.7 - 3.3 LA Vol/ BSA Biplane s A-L 14.7 mL/m2 RA Area A4C 8.74 cm2 LA Area A4C s MOD 14.33 cm2 RA Vol/ BSA A4C s A-L 7.2 mL/m2 LA Area A2C s MOD 13.13 cm2 Ao Asc Diam d 2.91 cm F: 2.3 - 3.1 LV EF A4C MOD 58.4 % LV EF Teichholz 63.8 % LV EF A2C MOD 58.8 % LVEF (Barraza's) 58.00 % F: 54 - 74 LV EF Biplane MOD 58.0 % LV Volume 64.29 mL F: 46 - 106 SV 51.05 mL LV Volume Index 29.62 mL/m2 F: 29 - 61 SV Index 23.54 mL/m2 LV Vol Biplane MOD 88.0 mL FS 34.55 % M-Mode TAPSE 2.06 cm (M/F) >1.7 LV Diastology MV E' medial 0.080 (>0.07 m/s) E/A Ratio 1.1 LV E/e MED 7.35 (<14) MV E Vmax 0.59 (0.4-1.3 m/s) MV E' lateral 0.134 (>0.1 m/s) MV A Vmax 0.55 (0.4-1.3 m/s) LV E/e LAT 4.40 (<14) MV E/A Ratio 1.00 MV E/E' medial 7.39 MV E/E' lateral 4.41 Aortic Valve LVOT Area 3.73 cm2 AoV Area Vmax 3.25 cm2 LVOT Vmax 1.08 m/s AoV Area/ BSA (Vmax) 1.50 cm2/m2 LVOT Mean Manuel. 0.72 m/s LISETH Mean Manuel. 3.01 cm2 LVOT Peak Grad 4.7 mmHg LISETH Mean Manuel. Index 1.39 cm2/m2 LVOT Mean Grad 2.4 mmHg LVOT VTI 0.167 m LVOT Diam s 2.15 cm AoV Vmax 1.24 m/s Velocity Ratio 0.87 AoV Mean Manuel. 0.89 m/s AoV Peak Grad 6.2 mmHg LVOT SV 62.35 mL AoV Mean Grad 3.5 mmHg AoV VTI 0.171 m AoV Area VTI 3.64 cm2 AoV Area/ BSA (VTI) 1.68 cm/m2 Mitral Valve MV DT 303 (160-240 msec) MV PHT 88 msec MV Area PHT 2.51 cm2 MV VTI 0.135 m MV Area VTI 4.62 (4.0-6.0 cm2)
== END 2022-07-11 01:14 ==
LOC: DI 00:54
PROVIDERS: PCP Physician Assistant Medical; Visit Provider Internal Medicine Cardiovascular Disease
DX: Z09 Encounter for follow-up examination after completed treatment for conditions other than malignant neoplasm (principal); R06.02 Shortness of breath
CPT/HCPCS: 93306

== ENCOUNTER 2022-08-14 01:47 | Outpatient (RCR) | payer MEDICAID, SELFPAY ==
[2022-08-14] MEDS: Normal Saline Flush 10 ML SYR IVP (08:42)
== END 2022-08-16 23:59 | disposition home or self-care (01) ==
LOC: INF 01:47
PROVIDERS: PCP Physician Assistant Medical; Visit Provider Internal Medicine
DX: Z45.2 Encounter for adjustment and management of vascular access device (principal)
CPT/HCPCS: 96523

== ENCOUNTER 2022-09-11 02:48 | Outpatient (RCR) | payer MEDICAID, SELFPAY ==
[2022-09-11] MEDS: Normal Saline Flush 10 ML SYR IVP (13:28)
== END 2022-09-15 23:59 | disposition home or self-care (01) ==
LOC: INF 02:48
PROVIDERS: PCP Physician Assistant Medical; Visit Provider Internal Medicine
DX: Z45.2 Encounter for adjustment and management of vascular access device (principal)
CPT/HCPCS: 96523

== ENCOUNTER 2022-10-15 03:25 | Outpatient (RCR) | payer MEDICAID, SELFPAY ==
[2022-10-15] MEDS: Normal Saline Flush 10 ML SYR IVP (11:47)
== END 2022-10-16 23:59 | disposition home or self-care (01) ==
LOC: INF 03:25
PROVIDERS: PCP Physician Assistant Medical; Visit Provider Internal Medicine
DX: Z45.2 Encounter for adjustment and management of vascular access device (principal)
CPT/HCPCS: 96523

== ENCOUNTER → 2023-01-02 02:26 | Outpatient (CLI) | payer MEDICAID, SELFPAY ==
--- NOTE | 2023-01-02 07:45 | DI.CT_ITS ---
Exam(s) CT NECK W EXAM: CT NECK W INDICATION: globus sensation,dysphagia,hx of leukemia,r09.89. COMPARISON: CT CT NECK W from 02/25/2020 TECHNIQUE: FINDINGS: VISUALIZED PARANASAL SINUSES: Unremarkable. NASOPHARYNX: Unremarkable ORODENTAL: Unremarkable. OROPHARYNX: Unremarkable. No masses evident. HYPOPHARYNX: Unremarkable. Valleculae and epiglottis and aryepiglottic folds appear normal. VOCAL CORDS: Unremarkable. No masses evident. Subglottic airway appears unremarkable. THYROID GLAND: Unremarkable. Normal size and no obvious nodules. SALIVARY GLANDS: Unremarkable. No significant findings in the parotid and submandibular glands. LYMPH NODES: There few minimally prominent lymph nodes on both sides the neck, largest being jugulodi gastric. There is no truly pathologic appearing lymphadenopathy on either side of the neck nor in th e supraclavicular regions. OTHER: Right supra clavi in Port-A-Cath noted VISUALIZED LUNG APICES: No significant findings. OSSEOUS: No significant findings. No fractures. No osseous lesions. IMPRESSION: 1. There is slightly prominent lymph nodes both sides the neck which are probably within normal limi ts. No gross lymphadenopathy on either side of the neck nor in the supraclavicular regions. 2. No other significant findings in soft tissues of the neck. 3. RADIATION DOSE DELIVERED: 445.87mGy.cm Total DLP DATA REPOSITORY: All CT scans at this facility are submitted to the National Radiology Data Registry (NRDR) Dose Index Registry (DIR) with the [employer] (ACR). RADIATION OPTIMIZATION: All CT scans at this facility use at least one of these dose optimization te chniques: automated exposure control; mA and/or kV adjustment per patient size (includes targeted exa ms where dose is matched to clinical indication); or iterative reconstruction.
[2023-01-02] MEDS: Normal Saline - Diluent 50 ML VIAL IJ (10:56)
[2023-01-02] MEDS: Omnipaque 350 MG/ML 100 ML BTL IJ (10:56)
[2023-01-02] MEDS: Normal Saline Flush 10 ML SYR IVP (11:00)
== END ==
PROVIDERS: PCP Physician Assistant Medical; Visit Provider Registered Nurse Maternal Newborn
DX: R09.89 Other specified symptoms and signs involving the circulatory and respiratory systems (principal); R13.10 Dysphagia, unspecified; Z85.6 Personal history of leukemia
CPT/HCPCS: 70491; J3490

== ENCOUNTER 2023-01-02 04:55 | Outpatient (RCR) | payer MEDICAID, SELFPAY ==
[2022-12-30] MEDS: Normal Saline Flush 10 ML SYR IVP (07:13)
[2022-12-30 08:40] LABS: Calculated LDL 152 mg/dL (<100); Cholesterol 206 mg/dL (<200); HDL Cholesterol 35 mg/dL (40-60); TSH (W/Ref FT4) 3.03 uIU/mL (0.36-3.74); Triglyceride 98 mg/dL (<150)
[2023-01-02] MEDS: Normal Saline Flush 10 ML SYR IVP (10:44)
== END 2023-01-16 23:59 | disposition home or self-care (01) ==
LOC: INF 04:55
PROVIDERS: PCP Physician Assistant Medical; Visit Provider Internal Medicine
DX: Z45.2 Encounter for adjustment and management of vascular access device; C92.00 Acute myeloblastic leukemia, not having achieved remission; Z48.288 Encounter for aftercare following multiple organ transplant
CPT/HCPCS: 36591; 80061; 96523; 84443

== ENCOUNTER → 2023-01-15 00:41 | Outpatient (CLI) | payer MEDICAID, SELFPAY ==
[2023-01-15] MEDS: Barium Sulfate 700 MG TAB PO (14:55)
[2023-01-15] MEDS: Barium Sulfate 98% W/W 140 ML BTL PO (14:56)
[2023-01-15] MEDS: Barium Sulfate 60% W/V 355 ML BTL PO (14:56)
[2023-01-15] MEDS: Simethicone/Sod Bicarb/Cit Ac, 4 gram PACKET 1 PACKET PO (14:57)
--- NOTE | 2023-01-15 14:58 | DI.RAD_ITS ---
Exam(s) RF BARIUM SWALLOW EXAM: RF BARIUM SWALLOW CLINICAL HISTORY: dysphagia, GLOBUS SENSATION, R09.89, R13.10 TECHNIQUE: 2D and realtime digital imaging was performed. CONTRAST MATERIAL: Thick and thin barium and barium tablet were administered. COMPARISON: CT CT CHEST/ABD/PEL W from 04/18/2021 FINDINGS: The PA and lateral chest films show normal heart size and clear lung kwan. A port is noted over th e right upper chest tip in right atrium. The lateral quality control clerk view of the neck is unremarkable. Esophagus: The patient swallowed barium without difficulty. Noevidence for mucosal erosions. Nofold thickening. No mass is visible. Nostricture. There is a miniscule Zenker diverticulum. Motility: There is a normal primary stripping wave. No tertiary contractions were noted. There is no hiatal hernia. Nogastroesophageal reflux was observed during the exam. Stomach and duodenum also appear grossly normal. IMPRESSION: Miniscule Zenker diverticulum, otherwise normal barium swallow. RADIATION DOSE DELIVERED: oly Hughes=16.9 mGy
== END ==
PROVIDERS: PCP Physician Assistant Medical; Visit Provider Registered Nurse Maternal Newborn
DX: R09.89 Other specified symptoms and signs involving the circulatory and respiratory systems (principal); R13.10 Dysphagia, unspecified
CPT/HCPCS: 74221; J3490

== ENCOUNTER → 2023-01-31 00:21 | Outpatient (CLI) | payer MEDICAID, SELFPAY ==
--- NOTE | 2023-01-31 | DI.MAMMO_ITS ---
Exam(s) MAMMO SCREENING EXAM: MAMMO SCREENING CLINICAL HISTORY: SCREENING FOR BREAST CANCER Z12.39 TECHNIQUE: Mammograms were interpreted according to the usual protocol including computer analysis w [employer] CAD system, tomosynthesis and C-view imaging. COMPARISON: No exams were available for comparison. Baseline examination. FINDINGS: The breasts are composed of scattered fibroglandular densities, Breast Density category B. There is an ovoid nodular density on the left CC view in the central tissue slightly lateral to the n ipple. There are adjacent microcalcifications. Calcification but no nodule seen on the lateral view . Spot magnification views and ultrasound are recommended for further evaluation No skin thickening or abnormal axillary lymph nodes are seen. IMPRESSION: BI-RADS Category 0 - Assessment Incomplete: Need additional imaging evaluation of the left breast Breast Density - Category B, scattered fibroglandular densities. A negative radiographic report should not delay biopsy if a dominant or clinically suspicious mass is present. Up to ten percent of cancers are not identified on mammography. A negative report may reinforce clinical impression. Adenosis and dense breasts may obscure an underlying neoplasm. False positive reports average 6 to 10%. Patient will receive a letter notifying them of these results.
== END ==
PROVIDERS: PCP Physician Assistant Medical; Visit Provider Physician Assistant Medical
DX: Z12.31 Encounter for screening mammogram for malignant neoplasm of breast (principal)
CPT/HCPCS: 77063; 77067

== ENCOUNTER 2023-02-04 03:11 | Outpatient (RCR) | payer MEDICAID, SELFPAY ==
[2023-02-04] MEDS: Normal Saline Flush 10 ML SYR IVP (14:13)
== END 2023-02-15 23:59 | disposition home or self-care (01) ==
LOC: INF 03:11
PROVIDERS: PCP Physician Assistant Medical; Visit Provider Internal Medicine
DX: Z45.2 Encounter for adjustment and management of vascular access device (principal)
CPT/HCPCS: 96523

== ENCOUNTER 2023-02-11 18:17 | Outpatient (REF) | payer MEDICAID, SELFPAY ==
[2023-02-11 16:56] LABS: COVID-19 PCR Negative (Negative); Influenza A PCR Negative (Negative); Influenza B PCR Negative (Negative); RSV PCR Negative (Negative)
[2023-02-11 16:59] LABS: Source Nasopharynx
== END 2023-02-11 18:18 | disposition home or self-care (01) ==
LOC: NCHCN 18:17
PROVIDERS: PCP Physician Assistant Medical; Visit Provider Physician Assistant Medical
DX: J34.89 Other specified disorders of nose and nasal sinuses (principal); Z20.822 Contact with and (suspected) exposure to COVID-19
CPT/HCPCS: 87637

== ENCOUNTER → 2023-02-13 02:35 | Outpatient (CLI) | payer MEDICAID, SELFPAY ==
--- NOTE | 2023-02-13 08:45 | DI.MAMMO_ITS ---
Exam(s) MG MAMMO SCREEN CALL BACK UNI US BREAST LT COMPLETE EXAM: MG MAMMO SCREEN CALL BACK UNI-LEFT AND COMPLETE LEFT BREAST ULTRASOUND CLINICAL HISTORY: OVOID NODULAR DENSITY ON LT CC VIEW, ADJACENT MICROCALCIFICATIONS. TECHNIQUE: Unilateral spot mammographic images obtained with 3D tomosynthesisand utilizing computer aided detection (CAD). . Complete LEFT breast Ultrasound was also performed, including all 4 quadrants, the retroareolar regio n, and the ipsilateral axilla. COMPARISON: Prior mammograms were reviewed. This additional imaging was performed due to findings described on the recent BASELINE screening mammogram of 01/31/2023. FINDINGS: DIAGNOSTIC MAMMOGRAM: Additional mammographic views performed todayreveal the microcalcifications in the left breast to exh ibit benign appearance. The nodular density is less concerning on the spot compression 3D view. We proceeded with ultrasound COMPLETE LEFT BREAST ULTRASOUND: Ultrasound performed today reveals a solitary finding at 2 o'clock position which has appearance of a probable benign intramammary lymph node, wider than taller and measuring approximately 10 x 5 mm. T his may correspond to the asymmetric nodular density on the mammogram. This has benign appearance on ultrasound. There are no other findings on ultrasound of all 4 quadrants. Scanning of the ipsilateral axilla reveals no significant adenopathy. IMPRESSION: 1. Left breast microcalcifications appear benign at this time. 2. Benign 2 o'clock position left breast ultrasound finding as described above Appropriate follow-up as discussed by myself with the patient today is repeat left breast mammogram a nd ultrasound in 6 months.. The patient was informed of these findings and recommendations prior to leaving the department today. BI-RADS Category 3 - 6 month - Probably Benign Finding: Recommend follow-up mammography in 6 months Breast Density - Category B - Scattered areas of fibroglandular density Breast density Category C or D implies that the patient has dense breast tissue. Dense breast tissue can make it harder to find cancer on a mammogram. Dense breast tissue is also associated with an incr eased risk of breast cancer. This information about the result of the mammogram report was provided to the patient to raise their awareness. Use this report when you speak with the patient about their risks for breast cancer, which includes their family history. At that time, you may recommend additional screening tests (Ultrasoun d or MRI) as these tests may add significant information. A negative radiographic report should not delay biopsy if a dominant or clinically suspicious mass is present. Up to ten percent of cancers are not identified on mammography. A negative report may reinforce clinical impression. Adenosis and dense breasts may obscure an underlying neoplasm. False positive reports average 6 to 10%. Patient will receive a letter notifying them of these results.
== END ==
PROVIDERS: PCP Physician Assistant Medical; Visit Provider Physician Assistant Medical
DX: Z12.31 Encounter for screening mammogram for malignant neoplasm of breast (principal); N63.21 Unspecified lump in the left breast, upper outer quadrant
CPT/HCPCS: 76642; 77063; 77067

== ENCOUNTER 2023-03-11 02:44 | Outpatient (RCR) | payer OTHER, SELFPAY ==
[2023-03-11] MEDS: Normal Saline Flush 10 ML SYR IVP (08:02)
== END 2023-03-18 23:59 | disposition home or self-care (01) ==
LOC: INF 02:44
PROVIDERS: PCP Physician Assistant Medical; Visit Provider Internal Medicine
DX: Z45.2 Encounter for adjustment and management of vascular access device (principal)
CPT/HCPCS: 96523

== ENCOUNTER → 2023-03-12 00:54 | Outpatient (CLI) | payer OTHER, SELFPAY ==
--- NOTE | 2023-03-12 | DI.RAD_ITS ---
Exam(s) XR CHEST 2V PA LATERAL EXAM: XR CHEST 2V PA LATERAL CLINICAL HISTORY: COUGH, R05.8 TECHNIQUE: 2D digital imaging was performed. COMPARISON: CR,RF RF BARIUM SWALLOW from 01/15/2023 FINDINGS: A port is again noted over the right upper chest with tip in the right atrium. HEART: Normal size. Aorta: Not dilated. PULMONARY VASCULATURE: Normal. LUNGS: Clear. PLEURAL SPACE: No pleural effusion or pneumothorax. BONE:Unremarkable for age. IMPRESSION: No acute abnormality. DATA REPOSITORY: RADIATION DOSE DELIVERED:
== END ==
PROVIDERS: PCP Physician Assistant Medical; Visit Provider Physician Assistant Medical
DX: R05.8 Other specified cough (principal)
CPT/HCPCS: 71046

== ENCOUNTER 2023-04-28 04:00 | Outpatient (RCR) | payer OTHER, SELFPAY ==
[2023-05-02 10:46] LABS: Specimen WB Whole Blood
== END 2023-05-18 23:59 | disposition home or self-care (01) ==
LOC: INF 04:00
PROVIDERS: PCP Physician Assistant Medical; Visit Provider Nurse Practitioner Adult Health
DX: C92.02 Acute myeloblastic leukemia, in relapse (principal)
CPT/HCPCS: 81256; 99195

== ENCOUNTER 2023-05-29 03:17 | Outpatient (RCR) | payer OTHER, SELFPAY ==
[2023-05-29] MEDS: Normal Saline Flush 10 ML SYR IVP (12:12)
[2023-05-29 12:24] LABS: HCT 44.7 % (36.0-46.0); HGB 15.4 g/dL (11.2-15.7); MCH 30.7 pg (27.0-33.0); MCHC 34.5 % (32.0-36.0); MCV 89 fL (80-95); MPV 8.7 fL (8.0-11.0); Platelet Count 362 10^3/uL (130-400); RBC 5.01 10^6/uL (3.93-5.22); RDW 13.2 % (11.7-14.6); RDW-SD 43.2 fL; WBC 11.24 10^3/uL (4.4-10.8)
[2023-05-29 12:38] LABS: Absolute Eosinophil Count 0.11 10^3/uL (0.0-0.7); Absolute Lymphocyte Count 6.52 10^3/uL (1.2-3.4); Absolute Monocyte Count 0.79 10^3/uL (0.1-0.8); Absolute Neutrophil Count 3.82 10^3/uL (1.2-6.7); Atypical Lymphocytes % 18; Diff Comment Manual Differential
[2023-05-29 12:39] LABS: RBC Morphology Normal
[2023-05-29 12:55] LABS: Ferritin 566 ng/mL (8-252)
== END 2023-06-18 23:59 | disposition home or self-care (01) ==
LOC: INF 03:17
PROVIDERS: PCP Physician Assistant Medical; Visit Provider Nurse Practitioner Adult Health
DX: R79.89 Other specified abnormal findings of blood chemistry (principal)
CPT/HCPCS: 36591; 99195; 82728; 85025

== ENCOUNTER 2023-07-03 04:01 | Outpatient (RCR) | payer OTHER, SELFPAY ==
[2023-07-03] MEDS: Normal Saline Flush 10 ML SYR IVP (09:33)
[2023-07-03 09:59] LABS: Abs Immature Grans 0.02 10^3/uL (0.0-0.06); Absolute Basophil Count 0.03 10^3/uL (0.0-0.2); Absolute Eosinophil Count 0.17 10^3/uL (0.0-0.7); Absolute Lymphocyte Count 4.86 10^3/uL (1.2-3.4); Absolute Monocyte Count 0.68 10^3/uL (0.1-0.8); Absolute Neutrophil Count 4.81 10^3/uL (1.2-6.7); Basophils % 0.3; Eosinophils % 1.6; HCT 46.2 % (36.0-46.0); HGB 15.6 g/dL (11.2-15.7); Immature Grans % 0.2; MCH 30.3 pg (27.0-33.0); MCHC 33.8 % (32.0-36.0); MCV 90 fL (80-95); MPV 9.1 fL (8.0-11.0); Monocytes % 6.4; Neutrophils % 45.5; Platelet Count 358 10^3/uL (130-400); RBC 5.15 10^6/uL (3.93-5.22); RDW 12.6 % (11.7-14.6); RDW-SD 41.8 fL; WBC 10.57 10^3/uL (4.4-10.8)
[2023-07-03 10:28] LABS: Ferritin 397 ng/mL (8-252)
== END 2023-07-17 23:59 | disposition home or self-care (01) ==
LOC: INF 04:01
PROVIDERS: PCP Physician Assistant Medical; Visit Provider Nurse Practitioner Adult Health
DX: R79.89 Other specified abnormal findings of blood chemistry (principal)
CPT/HCPCS: 36591; 99195; 82728; 85025

== ENCOUNTER 2023-08-14 05:00 | Outpatient (RCR) | payer OTHER, SELFPAY ==
[2023-08-07] MEDS: Normal Saline Flush 10 ML SYR IVP (08:46)
[2023-08-07 08:56] LABS: Abs Immature Grans 0.02 10^3/uL (0.0-0.06); Absolute Basophil Count 0.03 10^3/uL (0.0-0.2); Absolute Eosinophil Count 0.16 10^3/uL (0.0-0.7); Absolute Monocyte Count 0.62 10^3/uL (0.1-0.8); Absolute Neutrophil Count 4.06 10^3/uL (1.2-6.7); Basophils % 0.3; Eosinophils % 1.7; HCT 47.7 % (36.0-46.0); Immature Grans % 0.2; MCH 30.2 pg (27.0-33.0); MCHC 33.5 % (32.0-36.0); MCV 90 fL (80-95); MPV 8.9 fL (8.0-11.0); Monocytes % 6.5; Neutrophils % 42.3; Platelet Count 362 10^3/uL (130-400); RBC 5.29 10^6/uL (3.93-5.22); RDW 12.6 % (11.7-14.6); RDW-SD 41.9 fL; WBC 9.59 10^3/uL (4.4-10.8)
[2023-08-07 09:33] LABS: Ferritin 296 ng/mL (8-252)
== END 2023-08-17 23:59 | disposition home or self-care (01) ==
LOC: INF 05:00
PROVIDERS: PCP Physician Assistant Medical; Visit Provider Nurse Practitioner Adult Health
DX: R79.89 Other specified abnormal findings of blood chemistry (principal); Z45.2 Encounter for adjustment and management of vascular access device
CPT/HCPCS: 36591; 99195; 82728; 85025

== ENCOUNTER → 2023-08-22 00:39 | Outpatient (CLI) | payer OTHER, SELFPAY ==
--- NOTE | 2023-08-22 | DI.US_ITS ---
Exam(s) US BREAST LT COMPLETE MG MAMMO DIAGNOSTIC UNI EXAM: MG MAMMO DIAGNOSTIC UNI-LEFT AND COMPLETE LEFT BREAST ULTRASOUND CLINICAL HISTORY: 6 MO F/U, F/U ABNL MAMMO, LT BREAST FINDINGS. TECHNIQUE: Unilateral left breast cc and MLO and spot mammographic images were obtained with 3D rolando synthesis technique and utilizing computer aided detection (CAD). Complete left breast ultrasound performed including all 4 quadrants well as the left axilla. COMPARISON: Prior mammograms were reviewed, as was prior ultrasound examination of January 2023 FINDINGS: DIAGNOSTIC LEFT BREAST MAMMOGRAM: Findings are unchanged. Benign-appearing asymmetric density slightly lateral to the nipple remains u nchanged and the microcalcifications remain benign appearance. More peripherally there is a small be nign-appearing intramammary lymph node again noted. No new significant mammographic findings in left breast. COMPLETE LEFT BREAST ULTRASOUND: There is no evidence of solid or significant cystic lesions in all 4 quadrants. At the 2 o'clock pos ition the previously described finding on today's study has more the appearance of asymmetric tissue than an actual nodule. Scanning of the left axilla is negative for adenopathy. IMPRESSION: No mammographic nor ultrasound evidence of malignancy Appropriate follow-up is to keep this patient on a yearly screening mammogram schedule. The patient was informed of the findings and follow-up recommendations by myself prior to leaving the department today. BI-RADS Category 2 - Benign Findings Breast Density - Category B - Scattered areas of fibroglandular density Breast density Category C or D implies that the patient has dense breast tissue. Dense breast tissue can make it harder to find cancer on a mammogram. Dense breast tissue is also associated with an incr eased risk of breast cancer. This information about the result of the mammogram report was provided to the patient to raise their awareness. Use this report when you speak with the patient about their risks for breast cancer, which includes their family history. At that time, you may recommend additional screening tests (Ultrasoun d or MRI) as these tests may add significant information. A negative radiographic report should not delay biopsy if a dominant or clinically suspicious mass is present. Up to ten percent of cancers are not identified on mammography. A negative report may reinforce clinical impression. Adenosis and dense breasts may obscure an underlying neoplasm. False positive reports average 6 to 10%. Patient will receive a letter notifying them of these results.
== END ==
PROVIDERS: PCP Physician Assistant Medical; Visit Provider Physician Assistant Medical
DX: R92.8 Other abnormal and inconclusive findings on diagnostic imaging of breast (principal); N60.82 Other benign mammary dysplasias of left breast
CPT/HCPCS: 76642; 77061; 77065; G0279

== ENCOUNTER 2023-10-17 00:38 | Outpatient (RCR) | payer OTHER, SELFPAY ==
[2023-10-17] MEDS: Normal Saline Flush 10 ML SYR IVP (07:33)
== END 2023-10-17 23:59 | disposition home or self-care (01) ==
LOC: INF 00:38
PROVIDERS: PCP Physician Assistant Medical; Visit Provider Nurse Practitioner Adult Health
DX: Z45.2 Encounter for adjustment and management of vascular access device (principal)
CPT/HCPCS: 96523

== ENCOUNTER 2023-11-24 14:38 | Emergency (ER) | payer OTHER, SELFPAY ==
[2023-11-24] VITALS (37 sets, daily range): BP systolic 129–175; BP diastolic 68–109; PULSE 104–159; RESP 9–30; TEMP 37.4–37.5; O2SAT 93–98
--- NOTE | 2023-11-24 14:45 | DI.US_ITS ---
Exam(s) US UPPER EXTREMITY VENOUS RT EXAM: US UPPER EXTREMITY VENOUS RT CLINICAL HISTORY: Right arm, discoloration, swelling. TECHNIQUE: Ultrasound examination of the right upper extremity venous system(s) is performed using g rayscale, color-flow, and spectral Doppler analysis. COMPARISON: US US UPPER EXTREMITY VENOUS RT from 11/08/2021 FINDINGS: Right Deep Veins:There is occlusive thrombus seen in the right internal jugular vein from the mid to lower neck extending into the subclavian vein and proximal axillary vein. There is also a short exte nsion into the right brachiocephalic vein. The rest of the axillary and brachial veins are patent an d display normal color flow, augmentation and compressibility. Superficial Veins:The visualized cephalic, median cubital and basilic veins are patent and display no rmal color flow, augmentation and compressibility. Soft tissues: Unremarkable. IMPRESSION: 1. DVT involving the right internal jugular vein, subclavian vein, proximal axillary vein and a short extension into the right brachiocephalic vein. 2. Findings were discussed with Therese Beltran at 4:40 p.m. on 11/24/2023. DATA REPOSITORY:
--- NOTE | 2023-11-24 15:45 | RT.EKG_ITS ---
APPROVED REPORT Exam: Resting ECG Reason for Exam: tachycardia Patient Location: E HR:128 bpm ECG Measurements Heart Rate 128 AXIS SC 113 P 37 QRSd 78 QRS -56 QT 297 T 26 QTc 434 Conclusion Sinus tachycardia...rate> 99 Ventricular premature complex...V complex w/ short R-R interval Aberrant complex...small R-R variation, aberrant QRS Left anterior fascicular block...axis(240,-40), init forces inf
[2023-11-24 17:11] LABS: Abs Immature Grans 0.09 10^3/uL (0.0-0.06); Basophils % 0.4 %; Eosinophils % 0.5 %; HCT 50.5 % (36.0-46.0); HGB 17.2 g/dL (11.2-15.7); Immature Grans % 0.5 %; Lymphocytes % 26.5 %; MCH 29.7 pg (27.0-33.0); MCHC 34.1 % (32.0-36.0); MCV 87 fL (80-95); MPV 8.8 fL (8.0-11.0); Monocytes % 7.9 %; Neutrophils % 64.2 %; Platelet Count 244 10^3/uL (130-400); RDW 14.2 % (11.7-14.6); RDW-SD 45.5 fL; WBC 19.79 10^3/uL (4.4-10.8)
[2023-11-24 17:14] LABS: Absolute Basophil Count 0.08 10^3/uL (0.0-0.2); Absolute Lymphocyte Count 5.24 10^3/uL (1.2-3.4); Absolute Monocyte Count 1.56 10^3/uL (0.1-0.8); Absolute Neutrophil Count 12.71 10^3/uL (1.2-6.7)
[2023-11-24 17:25] LABS: Diff Comment Diff Reviewed; RBC Morphology Normal
[2023-11-24 17:26] LABS: ALT 60 U/L (14-59); AST 27 U/L (15-37); Albumin 3.6 g/dL (3.4-5.0); Alkaline Phosphatase 83 U/L (46-116); Anion Gap 12.4 mmol/L (3-11); BUN 8 mg/dL (7-18); Bilirubin, Total 0.63 mg/dL (0.2-1.0); CO2 24.6 mmol/L (21.0-32.0); CREATININE 1.2 mg/dL (0.55-1.02); Calcium 9.3 mg/dL (8.5-10.1); Chloride 102 mmol/L (98-107); Estimated GFR 58.32 (mL/min/1.73m2); Glucose 93 mg/dL (74-106); Magnesium 1.9 mg/dL (1.8-2.4); Potassium 3.6 mmol/L (3.5-5.1); Sodium 139 mmol/L (136-145); Total Protein 7.9 g/dL (6.4-8.2)
--- NOTE | 2023-11-24 17:43 | DI.RAD_ITS ---
Exam(s) XR CHEST 2V PA LATERAL EXAM: XR CHEST 2V PA LATERAL CLINICAL HISTORY: tachycardia TECHNIQUE: 2D digital imaging was performed of the chest. Two images were obtained. PA and lateral views were obtained. COMPARISON: CR XR CHEST 2V PA LATERAL from 03/12/2023 FINDINGS: There is a indwelling central venous catheter which is stable in position. MEDIASTINUM: Normal. HEART: Normal. PULMONARY VASCULATURE: Normal. LUNGS: Clear. PLEURAL SPACE: No pleural effusion or pneumothorax. BONE:Within normal limits for the patient's age. OTHER FINDINGS:Recent right upper extremity ultrasound revealed right IJ, subclavian, innominate, axi llary DVT. Please see the ultrasound report from the same day. IMPRESSION: No acute pulmonary findings. DATA REPOSITORY: RADIATION DOSE DELIVERED:
[2023-11-24 17:49] LABS: PTT Activated 24.6 sec (23.6-32.8)
[2023-11-24] MEDS: Heparin in 0.45% NaCl 25,000 UNIT/250 ML BAG 18 UNIT IV (18:09)
[2023-11-24] MEDS: Normal Saline 1,000 ML 1000 ML IV (18:11)
[2023-11-24 18:23] LABS: NT-proBNP 110 pg/mL (<300)
--- NOTE | 2023-11-24 19:10 | W.ED.GENAD ---
Discharge Plan Disposition Patient Disposition: Home Condition: Stable Discharge Details Clinical Impression: Acute internal jugular vein thrombosis, Tachycardia Primary Care Provider: Doreen Yung ED Provider: Micaela Grey Home Meds and New Rx's Prescriptions: No Action Saccharomyces boulardii [Daily Probiotic (S. boulardii)] 250 mg capsule 5,000 mmu cells PO DAILY OcuSoft Lid Scrub Pads, Medicated 1 pad topical ONCE PRN valacyclovir 1 gram tablet 1,000 mg PO BID PRN adapalene-benzoyl peroxide 0.1-2.5 % gel with pump 1 applic topical DAILY triamcinolone acetonide [Nasacort] 55 mcg aerosol,spray 2 spray intranasal DAILY PRN Rx Instructions: administer into each nostril clobetasol 0.05 % cream 1 applic topical DAILY famotidine 20 mg tablet 20 mg PO DAILY PRN ipratropium bromide 0.02 % solution 2.5 ml inhalation Q6H PRN clindamycin phosphate 1 % gel 1 applic topical DAILY artificial tears solution [Moisture Drops] 1 drp ophthalmic (eye) PRN PRN lactase [Lactaid] 3,000 unit tablet 3,000 unit PO ONCE Rx Instructions: administer with meals and/or snacks acetaminophen [Tylenol] 500 mg PO PRN PRN furosemide 20 mg tablet 20 mg PO DAILY Qty: 90 3RF epinephrine 0.3 MG/SYR auto-injector 0.3 mg IJ PRN PRN lidocaine-prilocaine 2.5-2.5 % Cream 1 applic TOPICAL ONCE PRN diphenhydramine HCl [Benadryl] 25 mg Capsule 25 mg PO DAILY Rx Instructions: before platelets norethindrone acetate 5 mg Tablet 5 mg PO BID montelukast [Singulair] 10 mg Tablet 10 mg PO QHS cholecalciferol (vitamin D3) [Vitamin D3] 25 mcg (1,000 unit) Tablet 25 mcg PO DIRECTED HPI General Date/Time Provider Initiated Documentation: 11/24/23 14:51. HPI Narrative: This 43-year-old female with history of AML in remission since 2021, asthma presents with report of swelling in right neck and right upper extremity with skin discoloration that patient reports began yesterday. Prior history of superficial thrombus in right upper extremity in 2020 for which she took Eliquis for 3 months reportedly. Patient denies any chest pain, shortness of breath, palpitations. She did recently complete doxycycline for reported sinusitis. Denies any calf pain or swelling. Denies any trauma, recent flights, surgeries, long drives. Not currently receiving chemotherapy per patient. Denies fever or chills. Denies known sick contacts. Related Data Home Medications Medication Instructions Recorded Confirmed epinephrine 0.3 mg/0.3 mL 0.3 mg IJ PRN PRN 08/21/15 11/24/23 injection, auto-injector cholecalciferol (vitamin D3) 25 25 mcg PO DIRECTED 02/25/20 11/24/23 mcg (1,000 unit) tablet (Vitamin D3) montelukast 10 mg tablet 10 mg PO QHS 02/25/20 11/24/23 (Singulair) diphenhydramine HCl 25 mg capsule 25 mg PO DAILY 07/22/20 11/24/23 (Benadryl) lidocaine-prilocaine 2.5 %-2.5 % 1 applic topical ONCE PRN 07/22/20 11/24/23 topical cream norethindrone acetate 5 mg tablet 5 mg PO BID 07/22/20 11/24/23 Saccharomyces boulardii 250 mg 5,000 mmu cells PO DAILY 05/21/22 11/24/23 capsule (Daily Probiotic (S. boulardii)) adapalene 0.1 %-benzoyl peroxide 1 applic topical DAILY 05/21/22 11/24/23 2.5 % topical gel with pump clobetasol 0.05 % topical cream 1 applic topical DAILY 05/21/22 11/24/23 eyelid cleanser combination 5 1 pad topical ONCE PRN 05/21/22 11/24/23 (OcuSoft Lid Scrub topical pads) famotidine 20 mg tablet 20 mg PO DAILY PRN 05/21/22 11/24/23 ipratropium bromide 0.02 % 2.5 ml inhalation Q6H PRN 05/21/22 11/24/23 solution for inhalation triamcinolone acetonide 55 mcg 2 spray intranasal DAILY PRN 05/21/22 11/24/23 nasal spray aerosol (Nasacort) valacyclovir 1 gram tablet 1,000 mg PO BID PRN 05/21/22 11/24/23 acetaminophen 500 mg PO PRN PRN 12/13/22 11/24/23 artificial tears solution 1 drp ophthalmic (eye) PRN PRN 12/13/22 11/24/23 clindamycin phosphate 1 % topical 1 applic topical DAILY 12/13/22 11/24/23 gel lactase 3,000 unit tablet (Lactaid) 3,000 unit PO ONCE 12/13/22 11/24/23 furosemide 20 mg tablet 20 mg PO DAILY #90 tabs 05/16/23 11/24/23 Previous Rx's Medication Instructions Recorded furosemide 20 mg tablet 20 mg PO DAILY #90 tabs 05/16/23 Allergies Allergy/AdvReac Type Severity Reaction Status Date / Time hydrocodone Allergy Intermediate rash and Verified 11/24/23 15:09 facial swelling voriconazole Allergy Intermediate Dizziness/L Verified 11/24/23 15:09 ighthead amoxicillin Allergy Unknown as infant Verified 11/24/23 15:09 albuterol Allergy Other (See Verified 11/24/23 15:09 Comment) COVID-19 (SARS-CoV-2) Allergy Other (See Verified 11/24/23 15:09 vaccine, patience Comment) fluticasone propionate Allergy mild Verified 11/24/23 15:09 [From Advair Diskus] throat swelling Heparin Analogues Allergy Other (See Verified 11/24/23 15:09 Comment) lactose Allergy Other (See Verified 11/24/23 15:09 Comment) metronidazole, micronized Allergy Other (See Verified 11/24/23 15:09 Comment) salmeterol xinafoate Allergy mild Verified 11/24/23 15:09 [From Advair Diskus] throat swelling turkey Allergy Other (See Verified 11/24/23 15:09 Comment) vancomycin Allergy Skin Rash Verified 11/24/23 15:09 venom-honey bee Allergy Anaphylaxsi Verified 11/24/23 15:09 [bee venom (honey bee)] s loratadine AdvReac Intermediate Dizziness/L Verified 11/24/23 15:09 ighthead metronidazole AdvReac Intermediate Other (See Verified 11/24/23 15:09 Comment) covid vaccine - Moderna Allergy Other (See Uncoded 11/24/23 15:09 Comment) tegaderm dressing Allergy Other (See Uncoded 11/24/23 15:09 Comment) General Stated Complaint: GenMedical RICKY: 2 Exam Narrative Exam Narrative: Alert, oriented, pleasant 43-year-old female, pupils equal round reactive light accommodation, significant swelling noted to right side of neck, chest, and right upper extremity with cyanosis and mottling. Radial pulse intact and cap refill noted in the dependent position, raising upper extremity improved coloration. Sensation is diminished in the dependent position and with raise improves. Lungs clear to auscultation, no murmur, no abdominal tenderness or abdominal bruit or pulsatile mass, the remainder of skin exam is benign, alert and oriented x 4, distal pulses intact to bilateral lower extremities and left upper extremity. Course Vital Signs Vital signs: Vital Signs Temperature 37.5 C 11/24/23 14:43 Pulse 149 H 11/24/23 14:43 Respiratory Rate 20 11/24/23 14:43 Blood Pressure 162/88 H 11/24/23 14:43 Pulse Oximetry 98 11/24/23 14:43 Temperature 37.4 C 11/24/23 17:54 Pulse 136 H 11/24/23 15:17 Respiratory Rate 20 11/24/23 15:17 Respiratory Effort Normal, Non-Labored 11/24/23 15:07 Respiratory Depth Normal 11/24/23 15:07 Respiratory Pattern Normal 11/24/23 15:07 Blood Pressure 129/94 H 11/24/23 15:17 Blood Pressure Mean 105 11/24/23 15:17 Pulse Oximetry 98 11/24/23 15:07 Oxygen Delivery Method Room Air 11/24/23 15:07 Oxygen Flow Rate 0 11/24/23 15:07 Pain Level 3 11/24/23 15:17 Lab/Test Results Lab/Test Results: Laboratory Tests Range/Units 11/24/23 11/24/23 17:05 17:31 WBC (4.4-10.8) 10^3/uL 19.79 H RBC (3.93-5.22) 10^6/uL 5.80 H Hgb (11.2-15.7) g/dL 17.2 H Hct (36.0-46.0) % 50.5 H MCV (80-95) fL 87 MCH (27.0-33.0) pg 29.7 MCHC (32.0-36.0) % 34.1 RDW (11.7-14.6) % 14.2 Plt Count (130-400) 10^3/uL 244 MPV (8.0-11.0) fL 8.8 Immature Gran % % 0.5 Neutrophils % % 64.2 Lymphocytes % % 26.5 Monocytes % % 7.9 Eosinophils % % 0.5 Basophils % % 0.4 Nucleated RBC % (0.0-0.3) % 0.0 Absolute Neutrophils (1.2-6.7) 10^3/uL 12.71 H Absolute Lymphocytes (1.2-3.4) 10^3/uL 5.24 H Absolute Monocytes (0.1-0.8) 10^3/uL 1.56 H Absolute Eosinophils (0.0-0.7) 10^3/uL 0.10 Absolute Basophils (0.0-0.2) 10^3/uL 0.08 RBC Morphology Normal PT Cancelled 10.0 INR Cancelled 1.0 APTT (23.6-32.8) sec 24.6 Sodium (136-145) mmol/L 139 Potassium (3.5-5.1) mmol/L 3.6 Chloride (98-107) mmol/L 102 Carbon Dioxide (21.0-32.0) mmol/L 24.6 Anion Gap (3-11) mmol/L 12.4 H BUN (7-18) mg/dL 8 Creatinine (0.55-1.02) mg/dL 1.2 H Est GFR (CKD-EPI 2020) (mL/min/1.73m2) 58.32 Glucose (74-106) mg/dL 93 Calcium (8.5-10.1) mg/dL 9.3 Magnesium (1.8-2.4) mg/dL 1.9 Total Bilirubin (0.2-1.0) mg/dL 0.63 AST (15-37) U/L 27 ALT (14-59) U/L 60 H Alkaline Phosphatase (46-116) U/L 83 NT-Pro-B Natriuret Pep (<300) pg/mL 110 Total Protein (6.4-8.2) g/dL 7.9 Albumin (3.4-5.0) g/dL 3.6 Medical Decision Making Alert and oriented 43-year-old female with concerning physical exam. Ultrasound of right upper extremity was ordered as we do not have CT capabilities secondary to malfunction. Ultrasound shows extensive IJ DVT extending into subclavian and brachiocephalic with concerning physical exam. Patient is notably tachycardic heart rates ranging from 130s to 140s although relatively asymptomatic with this. She also has leukocytosis of 19,000 although she tells me she does have intermittent tachycardia and leukocytosis I do not see elevations as significant as this in the past. I will order a lactate. Tmax of 100.1 orally. I suspect the tachycardia and elevation in temperature are secondary to DVT however cannot definitively exclude infectious etiology of patient's complaints. Lactate pending. Tylenol 650 will be initiated, 500 cc bolus of fluid. Heparin bolus and infusion for DVT PE was initiated. Given tachycardia and extensive DVT the next component of exam would include CTA, however ran able to offer this to this patient at this time. Case was discussed with vascular surgery at [facility] and Dr. Theodore ED attending who will accept patient to the emergency department at this time for continued assessment and evaluation. 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
[2023-11-24 19:35] LABS: Lactate 1.5 mmol/L (0.9-1.7)
[2023-11-24] MEDS: Acetaminophen 325 MG TAB 650 MG PO (20:56)
--- NOTE | 2023-11-25 07:16 | NUR.NOTE ---
Nursing Note:Accessed chart for SQSS investigation
== END 2023-11-24 22:09 | disposition home or self-care (01) ==
PROVIDERS: Emergency Provider Physician Assistant; PCP Physician Assistant Medical
DX: I82.C11 Acute embolism and thrombosis of right internal jugular vein (principal); I82.B11 Acute embolism and thrombosis of right subclavian vein; I82.A11 Acute embolism and thrombosis of right axillary vein; R00.0 Tachycardia, unspecified; C92.01 Acute myeloblastic leukemia, in remission; Z94.84 Stem cells transplant status; Z79.899 Other long term (current) drug therapy
CPT/HCPCS: 36415; 80053; 93005; 96360; 96361; 99285; 71046; 83605; 83735; 83880; 85025; 85610; 85730; 93010; 93971; 99284; J1644

== ENCOUNTER 2024-02-23 01:04 | Outpatient (CLI) | payer OTHER, SELFPAY ==
--- NOTE | 2024-02-23 | DI.MAMMO_ITS ---
Exam(s) MAMMO SCREENING EXAM: MAMMO SCREENING CLINICAL HISTORY: SCREENING MAMMO Z12.31. TECHNIQUE: Bilateral full field digital CC and MLO mammographic images were obtained with 3D tomosyn thesis and utilizing computer aided detection (CAD). COMPARISON: Prior mammograms were reviewed. Prior ultrasound August 2023 also reviewed. FINDINGS: There has been no significant change in the appearance and distribution of the fibroglandular tissue. There are no new spiculated masses nor malignant appearing microcalcification groups. There is no significant architectural distortion nor skin thickening-retraction. IMPRESSION: No radiographic evidence of malignancy. BI-RADS Category 1 - Negative Breast Density - Category B - Scattered areas of fibroglandular density Breast density Category C or D implies that the patient has dense breast tissue. Dense breast tissue can make it harder to find cancer on a mammogram. Dense breast tissue is also associated with an incr eased risk of breast cancer. This information about the result of the mammogram report was provided to the patient to raise their awareness. Use this report when you speak with the patient about their risks for breast cancer, which includes their family history. At that time, you may recommend additional screening tests (Ultrasoun d or MRI) as these tests may add significant information. A negative radiographic report should not delay biopsy if a dominant or clinically suspicious mass is present. Up to ten percent of cancers are not identified on mammography. A negative report may reinforce clinical impression. Adenosis and dense breasts may obscure an underlying neoplasm. False positive reports average 6 to 10%. Patient will receive a letter notifying them of these results.
--- NOTE | 2024-02-23 | DI.US_ITS ---
Exam(s) US UPPER EXTREMITY VENOUS RT EXAM: US UPPER EXTREMITY VENOUS RT CLINICAL HISTORY: PULMONARY EMBOLISM UPPER EXTREMITY RIGHT I82.621 TECHNIQUE: GRAYSCALE, COLOR, DOPPLER IMAGING OF THE VENOUS SYSTEM OF THE UPPER EXTREMITY-BILATERAL COMPARISON: US US UPPER EXTREMITY VENOUS RT from 11/24/2023 FINDINGS: There has been some improvement when compared to the study of November. There is some residual nonocclusive thrombus within the right internal jugular vein in the mid-lower neck and extending into the central aspect of the ipsilateral subclavian vein. However, the previously present thrombus within the axillary vein appears to have resolved, presently exhibiting normal compression augmentation properties. Lower down: Basilic vein: Patent. Normal color-flow and normal compression and augmentation properties. Brachial vein(s):Patent. Normal color flow. Normal compression and augmentation properties. Cephalic vein:Patent. Normal color flow. Normal compression and augmentation properties. IMPRESSION: 1. Compared to the prior study of 11/24/23 there has been some improvement as described above. Ther e is still some nonocclusive thrombus evident within lower half of the right internal jugular vein an d extending into the central aspect of the ipsilateral subclavian vein. 2. Follow-up to resolution recommended. DATA REPOSITORY:
== END 2024-02-23 01:24 ==
LOC: DI 01:04
PROVIDERS: PCP Physician Assistant Medical; Visit Provider Physician Assistant Medical
DX: Z12.31 Encounter for screening mammogram for malignant neoplasm of breast (principal); I82.621 Acute embolism and thrombosis of deep veins of right upper extremity
CPT/HCPCS: 77063; 77067; 93971

== ENCOUNTER 2024-02-23 02:00 | Outpatient (RCR) | payer OTHER, SELFPAY | END 2024-03-18 23:59 | disposition home or self-care (01) | LOC: INF 02:00 | PROVIDERS: PCP Physician Assistant Medical; Visit Provider Nurse Practitioner Adult Health | DX: R79.89 Other specified abnormal findings of blood chemistry (principal) | CPT/HCPCS: 99195 ==

== ENCOUNTER 2024-03-22 02:56 | Outpatient (CLI) | payer OTHER, SELFPAY ==
[2024-03-22 07:53] LABS: Abs Immature Grans 0.03 10^3/uL (0.0-0.06); Absolute Basophil Count 0.03 10^3/uL (0.0-0.2); Absolute Eosinophil Count 0.19 10^3/uL (0.0-0.7); Absolute Lymphocyte Count 3.48 10^3/uL (1.2-3.4); Absolute Monocyte Count 0.61 10^3/uL (0.1-0.8); Absolute Neutrophil Count 4.69 10^3/uL (1.2-6.7); Basophils % 0.3 %; Eosinophils % 2.1 %; HCT 45.9 % (36.0-46.0); HGB 15.4 g/dL (11.2-15.7); Immature Grans % 0.3 %; Lymphocytes % 38.5 %; MCHC 33.6 % (32.0-36.0); MCV 89 fL (80-95); MPV 8.9 fL (8.0-11.0); Monocytes % 6.8 %; Platelet Count 373 10^3/uL (130-400); RBC 5.14 10^6/uL (3.93-5.22); RDW-SD 45.6 fL; WBC 9.03 10^3/uL (4.4-10.8)
[2024-03-22 08:57] LABS: Ferritin 53 ng/mL (8-252)
== END 2024-03-22 02:57 | disposition home or self-care (01) ==
PROVIDERS: PCP Physician Assistant Medical; Visit Provider Nurse Practitioner Adult Health
DX: E83.118 Other hemochromatosis (principal)
CPT/HCPCS: 36415; 82728; 85025

== ENCOUNTER 2024-07-23 00:14 | Outpatient (CLI) | payer OTHER, SELFPAY ==
--- NOTE | 2024-07-23 07:30 | DI.US_ITS ---
APPROVED REPORT EXAM: Comprehensive 2D, Doppler, and color-flow Echocardiogram Patient Location: Out-Patient Cutter And Edge Trimmer: Ankur Quick RDCS (AE) Indications: Chronic right upper extremity DVT Conclusion Normal left ventricular wall thickness and chamber size. Ejection fraction is 60 to 65%. Wall motio n is normal Normal right ventricular size and function Both atria are normal in size There is no structural or hemodynamically significant valvular disease Estimated right ventricular systolic pressure is 28 mmHg Wall motion Left Ventricle The left ventricle is normal size. Left ventricular systolic function is normal. The left ventricular ejection fraction is within the normal range. There is normal left ventricular wall thickness. There is normal LV segmental wall motion. There is no ventricular septal defect visualized. LVEF is 60-65% . Right Ventricle The right ventricle is normal size. The right ventricular systolic function is normal. Atria The left atrium size is normal. The right atrium size is normal. The interatrial septum is intact wit h no evidence for an atrial septal defect. Aortic Valve The aortic valve is normal in structure. Aortic valve is trileaflet. There is no aortic valvular sten osis. No aortic regurgitation is present. Mitral Valve The mitral valve is normal in structure. No evidence of mitral valve stenosis. There is no mitral bebe ve regurgitation noted. Tricuspid Valve The tricuspid valve is normal in structure. There is no tricuspid valve stenosis. Trace tricuspid reg urgitation. The RVSP is 28.0 mmHg. Pulmonic Valve The pulmonary valve is normal in structure. There is no pulmonic valvular stenosis. There is no pulmo falguni valvular regurgitation. Great Vessels The aortic root is normal in size. The ascending aorta is normal in size. Aortic arch is normal in ca liber. IVC is normal in size and collapses >50% with inspiration. Pericardium There is no pericardial effusion. 2D Dimensions IVSD d PLAX 0.76 cm F: 0.6-1.0 Ao Root d 2.99 cm F: 2.7 - 3.3 LVPW d PLAX 0.75 cm F: 0.6 - 1.0 Ao Asc Diam d 2.81 cm F: 2.3 - 3.1 LVID d PLAX 4.57 cm F: 3.8 - 5.2 LVDs 2.95 cm F: 2.2 - 3.5 LV EF Teichholz 64.9 % FS 35.40 % LV EDV (Teich) 96.0 mL LV ESV (Teich) 33.7 mL Stroke Vol Index (Teich) 26.97 M-Mode TAPSE 2.04 cm (M/F) >1.7 Auto EF LV EDV A4C 127.4 mL LV EDV A2C 112.6 mL LV EDV BP 119.8 mL LV ESV A4C 49.9 mL LV ESV A2C 39.5 mL LV ESV BP 44.8 mL LVEF(%) A4C 60.8 % LVEF(%) A2C 65.0 % LVEF(%) BP 62.6 % LV SV A4C 77.5 ml LV SV A2C 73.2 ml LV SV BP 75.0 ml LV CO A4C 6.6 L/min LV CO A2C 5.1 L/min LV CO BP 5.9 L/min HR A4C 85.51 BPM HR A2C 69.91 BPM LV EDV Index (BP) LA Volume LA Length A4C 4.7 cm LA Length A2C 4.4 cm LA Area A4C s 8.98 cm2 LA Area A2C s 11.82 cm2 LA Vol A4C A-L 14.64 mL LA Vol A2C A-L 27.04 mL LA Vol Biplane A-L 20.5 mL LA Vol/BSA A4C A-L LA Vol/BSA A2C A-L LA Vol/BSA BP A-L 8.9 mL/m2 LA Vol A4C MOD 13.6 mL LA Vol A2C MOD 26.1 mL LA Vol BP MOD 19.4 mL RA Volume RA Area A4C 7.4 cm2 RA ESV A4C (A-L) 15.3mL RA Vol/BSA A4C A-L RA Length A4C 3.0 cm RA ESV A4C (MOD) 14.5mL LV Diastology MV E' medial 0.082 (>0.07 m/s) MV E Vmax 0.55 (0.4-1.3 m/s) MV E/E' MED 6.72 (<14) MV A Vmax 0.60 (0.4-1.3 m/s) MV E' lateral 0.129 (>0.1 m/s) E/A Ratio 0.9 MV E/E' LAT 4.26 (<14) MV E' Average 0.106 m/s MV E/E'(average) 5.22 Aortic Valve AoV Vmax 0.94 m/s LVOT Vmax 0.85 m/s AoV Peak Grad 3.5 mmHg LVOT Peak Grad 2.9 mmHg AoV Area (Vmax) 3.11 cm2 LVOT VTI 0.157 m AoV VTI 0.183 m LVOT Mean Grad 1.6 mmHg AoV Mean Manuel. 0.69 m/s LVOT SV 54.18 mL AoV Mean Grad 2.1 mmHg LVOT Diam s 2.05 cm AoV Area (VTI) 2.96 cm2 AV Regurg Peak Gr. 3.51 mmHg Velocity Ratio 0.90 Mitral Valve MV DT 148 (160-240 msec) MV Vmax TIPS 0.73 m/s MV Mean Grad 1.1 (<2mmHg) MV VTI 0.229 m Pulmonary Valve PV Vmax 0.82 (0.5-1.5 m/s) RVOT Vmax 0.75 m/s PV Peak Grad 2.7 mmHg RVOT Peak Gr. 2.3 mmHg PV Mean Manuel 0.61 m/s RVOT VTI 0.162 m PV Mean Grad 1.6 mmHg RVOT Mean Gr. 1.2 mmHg Tricuspid Valve RA Pressure 3.00 mmHg TR Vmax 2.50 m/s TR Peak Grad 24.9 mmHg RVSP (TR) 28.0 mmHg
== END 2024-07-23 00:34 ==
LOC: DI 00:14
PROVIDERS: PCP Physician Assistant Medical; Visit Provider Internal Medicine Cardiovascular Disease
DX: I82.721 Chronic embolism and thrombosis of deep veins of right upper extremity (principal)
CPT/HCPCS: 93306

== ENCOUNTER 2024-12-14 15:41 | Emergency (ER) | payer OTHER, SELFPAY ==
[2024-12-14 15:55] VITALS: BP 112/73; PULSE 139; RESP 20; TEMP 36.6; O2SAT 97
--- NOTE | 2024-12-14 16:45 | DI.RAD_ITS ---
Exam(s) XR LUMBAR SPINE COMPLETE EXAM: XR LUMBAR SPINE COMPLETE CLINICAL HISTORY: Low back pain,Sciatica. TECHNIQUE: 2D digital imaging was performed. Five views. COMPARISON: CT CT CHEST/ABD/PEL W from 04/18/2021 FINDINGS: BONES: No fracture or destructive lesion. Vertebral body heights are maintained. There is mild facet hypertrophy at L4-5 and L5-S1. The SI joints are unremarkable. DISKS: There is slight narrowing of the L3-4 disc space. There is moderate severe narrowing of the L4-5 disc space which is eccentric toward the right. There are endplate osteophytes greater on the right. There is calcification at the posterior disc margin at L5 3 4 through L5-S1. This appears stable from prior CT. There is mild narrowing of the L5-S1 disc space. The remaining intervertebral disc spaces are maintained. ALIGNMENT: Slight degenerative levoscoliosis at the L4-5 level. Heel SOFT TISSUE: Normal. IMPRESSION: Degenerative disc changes, greatest at L4-5. DATA REPOSITORY: RADIATION DOSE DELIVERED:
--- NOTE | 2024-12-14 16:48 | W.ED.GENAD ---
Discharge Plan Disposition Patient Disposition: Home Condition: Stable Discharge Details Clinical Impression: Sciatica of left side Primary Care Provider: Doreen Yung ED Provider: Therese Beltran Home Meds and New Rx's Prescriptions: New cyclobenzaprine 10 mg tablet 10 mg PO TID PRN (Reason: muscle spasm) Qty: 10 0RF Rx Instructions: Take 1 tablet orally up to 3 times daily as needed for muscle spasm. Continued Saccharomyces boulardii [Daily Probiotic (S. boulardii)] 250 mg capsule 5,000 mmu cells PO DAILY OcuSoft Lid Scrub Pads, Medicated 1 pad topical ONCE PRN valacyclovir 1 gram tablet 1,000 mg PO BID PRN adapalene-benzoyl peroxide 0.1-2.5 % gel with pump 1 applic topical DAILY triamcinolone acetonide [Nasacort] 55 mcg aerosol,spray 2 spray intranasal DAILY PRN Rx Instructions: administer into each nostril clobetasol 0.05 % cream 1 applic topical DAILY famotidine 20 mg tablet 20 mg PO DAILY PRN ipratropium bromide 0.02 % solution 2.5 ml inhalation Q6H PRN clindamycin phosphate 1 % gel 1 applic topical DAILY artificial tears solution [Moisture Drops] 1 drp ophthalmic (eye) PRN PRN lactase [Lactaid] 3,000 unit tablet 3,000 unit PO ONCE Rx Instructions: administer with meals and/or snacks acetaminophen [Tylenol] 500 mg PO PRN PRN furosemide 20 mg tablet 20 mg PO DAILY Qty: 90 3RF epinephrine 0.3 MG/SYR auto-injector 0.3 mg IJ PRN PRN lidocaine-prilocaine 2.5-2.5 % Cream 1 applic TOPICAL ONCE PRN diphenhydramine HCl [Benadryl] 25 mg Capsule 25 mg PO DAILY Rx Instructions: before platelets norethindrone acetate 5 mg Tablet 5 mg PO BID montelukast [Singulair] 10 mg Tablet 10 mg PO QHS cholecalciferol (vitamin D3) [Vitamin D3] 25 mcg (1,000 unit) Tablet 25 mcg PO DIRECTED methocarbamol 750 mg tablet 750 mg PO Q8H Patient Comments: TAKE 1 TABLET BY MOUTH 3 TIMES A DAY NEEDED FOR MUSCLE SPASMS (DME) Oxygen Tank See Rx Instructions .ROUTE Rx Instructions: As directed Discharge Instructions Instructions: Sciatica Exercises, Sciatica ED Additional Instructions: X-ray shows some degenerative changes of L4-S1 similar to previous CT. Please take the muscle relaxer Flexeril instead of the methocarbamol as directed if this seems to help little bit better. Please take Tylenol or Ibuprofen with food every 4-6 hours as needed for pain and swelling. Follow up with primary care provider in 3-5 days. Return to ED sooner if any worsening or concerns. A referral for physical therapy was placed for you today. Please call them if you are unable to get in with your primary provider. Stand Alone Forms: Physical Therapy Referral Referrals: Doreen Yung PA [Primary Care Provider, Medicine] - 2 weeks Discharge Data Discharge Date/Time-TO BE ENTERED AT DEPARTURE: 12/14/24 18:54 HPI General Mode of arrival: ambulatory. Date/Time Provider Initiated Documentation: 12/14/24 16:14. Limitations to Documentation: no limitations. Information obtained by: patient, RN notes reviewed and old records reviewed. HPI Narrative: 44-year-old female presents to the ER with a chief complaint of low back pain with radiation down her left leg which has been intermittent for the last 7 weeks. She reports that last week she was seen at her PCP office and was prescribed methocarbamol which she has been alternating with Tylenol. This has been helping up until yesterday morning when she woke up with increase in pain and stiffness. She denies any loss of bowel or bladder control, denies any saddle anesthesia or weakness to her lower extremity. She does report some chronic numbness and tingling to the lateral aspect of her left leg. She has last taken some methocarbamol this morning and Tylenol approximately 4 hours ago. 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 Related Data Home Medications ?Medication ?Instructions ?Recorded ?Confirmed epinephrine 0.3 mg/0.3 mL 0.3 mg IJ PRN PRN 08/21/15 12/14/24 injection, auto-injector cholecalciferol (vitamin D3) 25 25 mcg PO DIRECTED 02/25/20 12/14/24 mcg (1,000 unit) tablet (Vitamin D3) montelukast 10 mg tablet 10 mg PO QHS 02/25/20 12/14/24 (Singulair) diphenhydramine HCl 25 mg capsule 25 mg PO DAILY 07/22/20 12/14/24 (Benadryl) lidocaine-prilocaine 2.5 %-2.5 % 1 applic topical ONCE PRN 07/22/20 12/14/24 topical cream norethindrone acetate 5 mg tablet 5 mg PO BID 07/22/20 12/14/24 Saccharomyces boulardii 250 mg 5,000 mmu cells PO DAILY 05/21/22 12/14/24 capsule (Daily Probiotic (S. boulardii)) adapalene 0.1 %-benzoyl peroxide 1 applic topical DAILY 05/21/22 12/14/24 2.5 % topical gel with pump clobetasol 0.05 % topical cream 1 applic topical DAILY 05/21/22 12/14/24 eyelid cleanser combination 5 1 pad topical ONCE PRN 05/21/22 12/14/24 (OcuSoft Lid Scrub topical pads) famotidine 20 mg tablet 20 mg PO DAILY PRN 05/21/22 12/14/24 ipratropium bromide 0.02 % 2.5 ml inhalation Q6H PRN 05/21/22 12/14/24 solution for inhalation triamcinolone acetonide 55 mcg 2 spray intranasal DAILY PRN 05/21/22 12/14/24 nasal spray aerosol (Nasacort) valacyclovir 1 gram tablet 1,000 mg PO BID PRN 05/21/22 12/14/24 acetaminophen 500 mg PO PRN PRN 12/13/22 12/14/24 artificial tears solution 1 drp ophthalmic (eye) PRN PRN 12/13/22 12/14/24 clindamycin phosphate 1 % topical 1 applic topical DAILY 12/13/22 12/14/24 gel lactase 3,000 unit tablet (Lactaid) 3,000 unit PO ONCE 12/13/22 12/14/24 furosemide 20 mg tablet 20 mg PO DAILY #90 tabs 05/16/23 12/14/24 Oxygen 12/14/24 12/14/24 cyclobenzaprine 10 mg tablet 10 mg PO TID PRN muscle spasm #10 12/14/24 tabs methocarbamol 750 mg tablet 750 mg PO Q8H 12/14/24 12/14/24 Previous Rx's ?Medication ?Instructions ?Recorded furosemide 20 mg tablet 20 mg PO DAILY #90 tabs 05/16/23 cyclobenzaprine 10 mg tablet 10 mg PO TID PRN muscle spasm #10 12/14/24 tabs Allergies Allergy/AdvReac Type Severity Reaction Status Date / Time hydrocodone Allergy Intermediate rash and Verified 12/14/24 19:13 facial swelling voriconazole Allergy Intermediate Dizziness/L Verified 12/14/24 19:13 ighthead amoxicillin Allergy Unknown as infant Verified 12/14/24 19:13 albuterol Allergy Other (See Verified 12/14/24 19:13 Comment) COVID-19 (SARS-CoV-2) Allergy Other (See Verified 12/14/24 19:13 vaccine, patience Comment) fluticasone propionate (From Allergy mild Verified 12/14/24 19:13 Advair Diskus) throat swelling Heparin Analogues Allergy Other (See Verified 12/14/24 19:13 Comment) lactose Allergy Other (See Verified 12/14/24 19:13 Comment) metronidazole, micronized Allergy Other (See Verified 12/14/24 19:13 Comment) salmeterol xinafoate (From Allergy mild Verified 12/14/24 19:13 Advair Diskus) throat swelling turkey Allergy Other (See Verified 12/14/24 19:13 Comment) vancomycin Allergy Skin Rash Verified 12/14/24 19:13 venom-honey bee (bee venom Allergy Anaphylaxsi Verified 12/14/24 19:13 (honey bee)) s loratadine AdvReac Intermediate Dizziness/L Verified 12/14/24 19:13 ighthead metronidazole AdvReac Intermediate Other (See Verified 12/14/24 19:13 Comment) covid vaccine - Moderna Allergy Other (See Uncoded 12/14/24 19:13 Comment) tegaderm dressing Allergy Other (See Uncoded 12/14/24 19:13 Comment) General Stated Complaint: GenMedical RICKY: 3 Review of Systems All systems reviewed & are unremarkable except as noted in HPI and below Musculoskeletal Musculoskeletal: Reports as per HPI, Reports back pain, Denies myalgias, Denies atrophy, Denies muscle weakness, Reports numbness, Reports radiating pain into limb, Reports stiffness and Reports tingling Neurologic Neurologic: Reports numbness and Reports tingling Exam Back/Spine/Pelvis Back: no CVA tenderness Thoracic/Lumbar Spine: thoraco-lumbar spasm, lumbar spinal tenderness and straight leg raise positive (Right,) Pelvis: no pain with anterior-posterior compression, buttock tenderness and no buttock swelling Course Vital Signs Vital signs: Vital Signs Temperature 36.6 C 12/14/24 15:55 Pulse 139 H 12/14/24 15:55 Respiratory Rate 20 12/14/24 15:55 Blood Pressure 112/73 12/14/24 15:55 Pulse Oximetry 97 12/14/24 15:55 Temperature 36.6 C 12/14/24 15:55 Temperature Source Oral 12/14/24 15:55 Pulse 139 H 12/14/24 15:55 Respiratory Rate 20 12/14/24 15:55 Blood Pressure 112/73 12/14/24 15:55 Blood Pressure Position Sitting 12/14/24 15:55 Pulse Oximetry 97 12/14/24 15:55 Oxygen Delivery Method Room Air 12/14/24 15:55 Oxygen Flow Rate 0 12/14/24 15:55 Pain Level 2 12/14/24 15:55 Comment but with activities pain goes up to a 12/2612/14/24 15:55 Medical Decision Making 44-year-old female presents to the ER with a chief complaint of low back pain with radiation down her left leg which has been intermittent for the last 7 weeks. She reports that last week she was seen at her PCP office and was prescribed methocarbamol which she has been alternating with Tylenol. This has been helping up until yesterday morning when she woke up with increase in pain and stiffness. She denies any loss of bowel or bladder control, denies any saddle anesthesia or weakness to her lower extremity. She does report some chronic numbness and tingling to the lateral aspect of her left leg. She has last taken some methocarbamol this morning and Tylenol approximately 4 hours ago. 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 L-spine x-rays ordered, patient has no complaints of dysuria or frequency, urine test ordered for x-rays, Flexeril and ibuprofen. X-rays show degenerative changes from L5-S1 there are endplate osteophytes. On patient reevaluation she reports she feels much better after the Flexeril and ibuprofen. Discussed home care follow-up care. I did discuss physical therapy patient would prefer to follow-up with her provider. This text was generated using [employer] system, please disregard any oddities of phrase or misspellings. Imaging Data Radiologic Study: Imaging: X-Ray Radiologist's impression: XR LUMBAR SPINE COMPLETE EXAM: XR LUMBAR SPINE COMPLETE CLINICAL HISTORY: Low back pain,Sciatica. TECHNIQUE: 2D digital imaging was performed. Five views. COMPARISON: CT CT CHEST/ABD/PEL W from 04/18/2021 FINDINGS: BONES: No fracture or destructive lesion. Vertebral body heights are maintained. There is mild facet hypertrophy at L4-5 and L5-S1. The SI joints are unremarkable. DISKS: There is slight narrowing of the L3-4 disc space. There is moderate severe narrowing of the L4-5 disc space which is eccentric toward the right. There are endplate osteophytes greater on the right. There is calcification at the posterior disc margin at L5 3 4 through L5-S1. This appears stable from prior CT. There is mild narrowing of the L5-S1 disc space. The remaining intervertebral disc spaces are maintained. ALIGNMENT: Slight degenerative levoscoliosis at the L4-5 level. Heel SOFT TISSUE: Normal. IMPRESSION: Degenerative disc changes, greatest at L4-5. 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 PAWSS Have you Been Recently Intoxicated or Drunk Within the Last 30 days?: No Have you Ever Experienced Previous Episodes of Alcohol Withdrawal?: No Have you ever Experienced Withdrawal Seizures?: No Have you ever Experienced Delirium Tremens(DT)s?: No Have you ever undergone Alcohol Rehabilitation Treatment (i.e, inpt ot outpatient treatment programs)?: No Have you ever Experienced Blackouts?: No Have you ever Combined Alcohol with other Downers within the last 90 days?: No Have you ever Combined Alcohol with any other Substance of Abuse during the last 90 days?: No Positive Blood Alcohol level on Presentation? [PCS.BAL]: No Evidence of Increased Autonomic Activity (i.e. HR>120, tremor, sweating, agitation, nausea)?: No Result: 0
[2024-12-14] MEDS: Cyclobenzaprine 10 MG TAB PO (17:24)
[2024-12-14] MEDS: Ibuprofen 600 MG TAB PO (17:24)
[2024-12-14 18:47] VITALS: BP 131/98; PULSE 116; RESP 20; O2SAT 98
[2024-12-14] MEDS: Cyclobenzaprine 10 MG TAB, 3 TABS/BTL PO (18:49)
== END 2024-12-14 18:54 | disposition home or self-care (01) ==
PROVIDERS: Emergency Provider Registered Nurse Emergency; PCP Physician Assistant Medical
DX: M54.32 Sciatica, left side (principal)
CPT/HCPCS: 99283 ×2; 72110

== ENCOUNTER 2024-12-14 19:01 | Emergency (ER) | payer OTHER, SELFPAY ==
--- NOTE | 2024-12-14 19:00 | RT.EKG_ITS ---
APPROVED REPORT Exam: Resting ECG Reason for Exam: syncope Patient Location: E HR:103 bpm ECG Measurements Heart Rate 103 AXIS [place] 130 P 40 QRSd 88 QRS -32 QT 365 T 26 QTc 478 Conclusion Sinus tachycardia...rate> 99 Probable left atrial enlargement...P >50mS, <-0.10mV V1 Left axis deviation...QRS axis (-30,-90) Sinus tachycardia, left axis deviation, when compared to prior decreased HR noted, otherwise no significant change from prior 11/24/23. WD
[2024-12-14 19:04] VITALS: BP 120/79; PULSE 100; RESP 24; TEMP 36.5; O2SAT 98
--- NOTE | 2024-12-14 19:17 | W.ED.GENAD ---
Discharge Plan Disposition Patient Disposition: Home Condition: Stable Discharge Details Clinical Impression: Syncope, Hypokalemia Primary Care Provider: Doreen Yung ED Provider: Therese Beltran Home Meds and New Rx's Prescriptions: No Action Saccharomyces boulardii [Daily Probiotic (S. boulardii)] 250 mg capsule 5,000 mmu cells PO DAILY OcuSoft Lid Scrub Pads, Medicated 1 pad topical ONCE PRN valacyclovir 1 gram tablet 1,000 mg PO BID PRN adapalene-benzoyl peroxide 0.1-2.5 % gel with pump 1 applic topical DAILY triamcinolone acetonide [Nasacort] 55 mcg aerosol,spray 2 spray intranasal DAILY PRN Rx Instructions: administer into each nostril clobetasol 0.05 % cream 1 applic topical DAILY famotidine 20 mg tablet 20 mg PO DAILY PRN ipratropium bromide 0.02 % solution 2.5 ml inhalation Q6H PRN clindamycin phosphate 1 % gel 1 applic topical DAILY artificial tears solution [Moisture Drops] 1 drp ophthalmic (eye) PRN PRN lactase [Lactaid] 3,000 unit tablet 3,000 unit PO ONCE Rx Instructions: administer with meals and/or snacks acetaminophen [Tylenol] 500 mg PO PRN PRN furosemide 20 mg tablet 20 mg PO DAILY Qty: 90 3RF epinephrine 0.3 MG/SYR auto-injector 0.3 mg IJ PRN PRN lidocaine-prilocaine 2.5-2.5 % Cream 1 applic TOPICAL ONCE PRN diphenhydramine HCl [Benadryl] 25 mg Capsule 25 mg PO DAILY Rx Instructions: before platelets norethindrone acetate 5 mg Tablet 5 mg PO BID montelukast [Singulair] 10 mg Tablet 10 mg PO QHS cholecalciferol (vitamin D3) [Vitamin D3] 25 mcg (1,000 unit) Tablet 25 mcg PO DIRECTED methocarbamol 750 mg tablet 750 mg PO Q8H Patient Comments: TAKE 1 TABLET BY MOUTH 3 TIMES A DAY NEEDED FOR MUSCLE SPASMS (DME) Oxygen Tank See Rx Instructions .ROUTE Rx Instructions: As directed cyclobenzaprine 10 mg tablet 10 mg PO TID PRN (Reason: muscle spasm) Qty: 10 0RF Rx Instructions: Take 1 tablet orally up to 3 times daily as needed for muscle spasm. Discharge Instructions Instructions: High Potassium Diet, Fainting, Adult ED Additional Instructions: At this time your potassium was low, you were given supplements and IV potassium here in the emergency department. Your magnesium is also low. This was also replaced. Please take a multivitamin that has potassium and magnesium in it over the next few days. Increase your diet with magnesium and potassium rich foods such as bananas and green leafy vegetables. Follow up with primary care provider in 3-5 days. Return to ED sooner if any worsening, feeling faint, heart palpitations, muscle spasms, or concerns. Thank you for allowing us to care for you today. Referrals: Doreen Yung PA [Primary Care Provider, Medicine] - 3 days Referral Note: ER follow-up, call for an appointment Clinical Impression: Hypokalemia HPI General Mode of arrival: wheelchair. Date/Time Provider Initiated Documentation: 12/14/24 19:02. Limitations to Documentation: no limitations. Information obtained by: patient, RN notes reviewed and old records reviewed. HPI Narrative: 44-year-old female presents to the ER after being discharged by me just recently, she was seen here for lower back pain left lower leg radiculopathy and sciatica. She reports that she was out in the waiting room waiting for her when she felt flushed, had tunnel vision and lost consciousness. Possible syncopal episode. Denies any chest pain, shortness of breath or any other associated symptoms upon my evaluation. Vital signs are stable. She does have a heart rate of 100 blood pressure 120/79 O2 sat 98% on room air. Related Data Home Medications ?Medication ?Instructions ?Recorded ?Confirmed epinephrine 0.3 mg/0.3 mL 0.3 mg IJ PRN PRN 08/21/15 12/14/24 injection, auto-injector cholecalciferol (vitamin D3) 25 25 mcg PO DIRECTED 02/25/20 12/14/24 mcg (1,000 unit) tablet (Vitamin D3) montelukast 10 mg tablet 10 mg PO QHS 02/25/20 12/14/24 (Singulair) diphenhydramine HCl 25 mg capsule 25 mg PO DAILY 07/22/20 12/14/24 (Benadryl) lidocaine-prilocaine 2.5 %-2.5 % 1 applic topical ONCE PRN 07/22/20 12/14/24 topical cream norethindrone acetate 5 mg tablet 5 mg PO BID 07/22/20 12/14/24 Saccharomyces boulardii 250 mg 5,000 mmu cells PO DAILY 05/21/22 12/14/24 capsule (Daily Probiotic (S. boulardii)) adapalene 0.1 %-benzoyl peroxide 1 applic topical DAILY 05/21/22 12/14/24 2.5 % topical gel with pump clobetasol 0.05 % topical cream 1 applic topical DAILY 05/21/22 12/14/24 eyelid cleanser combination 5 1 pad topical ONCE PRN 05/21/22 12/14/24 (OcuSoft Lid Scrub topical pads) famotidine 20 mg tablet 20 mg PO DAILY PRN 05/21/22 12/14/24 ipratropium bromide 0.02 % 2.5 ml inhalation Q6H PRN 05/21/22 12/14/24 solution for inhalation triamcinolone acetonide 55 mcg 2 spray intranasal DAILY PRN 05/21/22 12/14/24 nasal spray aerosol (Nasacort) valacyclovir 1 gram tablet 1,000 mg PO BID PRN 05/21/22 12/14/24 acetaminophen 500 mg PO PRN PRN 12/13/22 12/14/24 artificial tears solution 1 drp ophthalmic (eye) PRN PRN 12/13/22 12/14/24 clindamycin phosphate 1 % topical 1 applic topical DAILY 12/13/22 12/14/24 gel lactase 3,000 unit tablet (Lactaid) 3,000 unit PO ONCE 12/13/22 12/14/24 furosemide 20 mg tablet 20 mg PO DAILY #90 tabs 05/16/23 12/14/24 Oxygen 12/14/24 12/14/24 cyclobenzaprine 10 mg tablet 10 mg PO TID PRN muscle spasm #10 12/14/24 tabs methocarbamol 750 mg tablet 750 mg PO Q8H 12/14/24 12/14/24 Previous Rx's ?Medication ?Instructions ?Recorded furosemide 20 mg tablet 20 mg PO DAILY #90 tabs 05/16/23 cyclobenzaprine 10 mg tablet 10 mg PO TID PRN muscle spasm #10 12/14/24 tabs Allergies Allergy/AdvReac Type Severity Reaction Status Date / Time hydrocodone Allergy Intermediate rash and Verified 12/14/24 19:13 facial swelling voriconazole Allergy Intermediate Dizziness/L Verified 12/14/24 19:13 ighthead amoxicillin Allergy Unknown as infant Verified 12/14/24 19:13 albuterol Allergy Other (See Verified 12/14/24 19:13 Comment) COVID-19 (SARS-CoV-2) Allergy Other (See Verified 12/14/24 19:13 vaccine, patience Comment) fluticasone propionate (From Allergy mild Verified 12/14/24 19:13 Advair Diskus) throat swelling Heparin Analogues Allergy Other (See Verified 12/14/24 19:13 Comment) lactose Allergy Other (See Verified 12/14/24 19:13 Comment) metronidazole, micronized Allergy Other (See Verified 12/14/24 19:13 Comment) salmeterol xinafoate (From Allergy mild Verified 12/14/24 19:13 Advair Diskus) throat swelling turkey Allergy Other (See Verified 12/14/24 19:13 Comment) vancomycin Allergy Skin Rash Verified 12/14/24 19:13 venom-honey bee (bee venom Allergy Anaphylaxsi Verified 12/14/24 19:13 (honey bee)) s loratadine AdvReac Intermediate Dizziness/L Verified 12/14/24 19:13 ighthead metronidazole AdvReac Intermediate Other (See Verified 12/14/24 19:13 Comment) covid vaccine - Moderna Allergy Other (See Uncoded 12/14/24 19:13 Comment) tegaderm dressing Allergy Other (See Uncoded 12/14/24 19:13 Comment) General Stated Complaint: GenMedical RICKY: 3 Review of Systems All systems reviewed & are unremarkable except as noted in HPI and below Constitutional Constitutional: Reports as per HPI and Reports lethargy Cardiovascular Cardiovascular: Reports syncope Neurologic Neurologic: Reports as per HPI, Reports syncope and Reports other (Tunnel vision, felt flushed) Exam Narrative Exam Narrative: Constitutional: Alert and oriented x3. Appears stated age. Normal body habitus. Head: Normocephalic, no trauma. Eyes: Pupils PERRL, Red reflex noted, EOM's intact. Eyelids symmetrical without lesions, discharge, or swelling. ENT: Bilateral TM's WNL, External ear normal to inspection, no mastoid TTP, swelling, or erythema, Nasal turbinates WNL, no nasal discharge. Normal dentition, Posterior pharynx WNL, no exudate. Chest: RRR, Normal S1, S2, distal pulses intact. Resp: Lungs clear to auscultation bilaterally, no wheezes, rales, or rhonchi. Abdomen: Soft, non-distended, Normoactive bowel sounds all 4 quads. Musculoskeletal: Normal gait, Moves all 4 extremities without difficulty. Skin: No suspicious rashes or lesions. Capillary refill less than 2 sec. Neurologic: Cranial nerves II-XII intact. Alert and oriented x 3. Motor: No deficits noted. Sensory: Intact bilaterally all 4 extremities. Hematologic/Lymphatic: No ecchymosis, no lymphadenopathy. Course Vital Signs Vital signs: Vital Signs Temperature 36.5 C 12/14/24 19:04 Pulse 100 H 12/14/24 19:04 Respiratory Rate 24 12/14/24 19:04 Blood Pressure 120/79 12/14/24 19:04 Pulse Oximetry 98 12/14/24 19:04 Temperature 36.5 C 12/14/24 19:04 Temperature Source Oral 12/14/24 19:04 Pulse 100 H 12/14/24 19:04 Respiratory Rate 24 12/14/24 19:04 Blood Pressure 120/79 12/14/24 19:04 Blood Pressure Position Supine 12/14/24 19:04 Pulse Oximetry 98 12/14/24 19:04 Oxygen Delivery Method Room Air 12/14/24 19:04 Oxygen Flow Rate 0 12/14/24 19:04 Pain Level 1 12/14/24 19:04 Medical Decision Making Will give 500 cc normal saline, basic labs drawn including CBC CMP and magnesium will reevaluation. Differential diagnose includes but not limited to med reaction as she did receive Flexeril and ibuprofen prior to being discharged, dehydration, anxiety, . She reports she has not had any fluids since this afternoon. EKG obtained by ED staff prior to my evaluation, Sinus tachycardia. Potassium resulted at 2.8, magnesium slightly low at 1.7, anion gap elevated at 14.0 calcium slightly low at 7.3 albumin 2.9. Patient does have a history of lymphoma. Will give 40 mg equivalents of potassium p.o., gram of magnesium IV and 10 mill equivalents of IV potassium. Patient tolerating p.o. without difficulty given crackers and a anshul anastasia here in the department. IV is infused, patient is feeling better. Discharge to home in the care of her . This text was generated using [employer] system, please disregard any oddities of phrase or misspellings. Medical Records Medical records reviewed: Yes I reviewed the patient's medical records. Lab Data Lab results reviewed: Yes I reviewed the patient's lab results. Labs: Laboratory Tests Range/Units 12/14/24 19:17 WBC (4.4-10.8) 10^3/uL 16.43 H RBC (3.93-5.22) 10^6/uL 5.59 H Hgb (11.2-15.7) g/dL 16.9 H Hct (36.0-46.0) % 49.2 H MCV (80-95) fL 88 MCH (27.0-33.0) pg 30.2 MCHC (32.0-36.0) % 34.3 RDW (11.7-14.6) % 13.7 Plt Count (130-400) 10^3/uL 345 MPV (8.0-11.0) fL 9.0 Immature Gran % See Differential Neutrophils % % 58.0 Lymphocytes % % 29.0 Atypical Lymphs % % 2 Monocytes % % 10.0 Eosinophils % % 1.0 Basophils % % 0.0 Nucleated RBC % (0.0-0.3) % 0.1 Absolute Neutrophils (1.2-6.7) 10^3/uL 9.53 H Absolute Lymphocytes (1.2-3.4) 10^3/uL 5.09 H Absolute Monocytes (0.1-0.8) 10^3/uL 1.64 H Absolute Eosinophils (0.0-0.7) 10^3/uL 0.16 Absolute Basophils (0.0-0.2) 10^3/uL 0.00 RBC Morphology Normal Sodium (136-145) mmol/L 145 Potassium (3.5-5.1) mmol/L 2.8 L* Chloride (98-107) mmol/L 109 H Carbon Dioxide (21.0-32.0) mmol/L 22.0 Anion Gap (3-11) mmol/L 14.0 H BUN (7-18) mg/dL 8 Creatinine (0.55-1.02) mg/dL 0.8 Est GFR (CKD-EPI 2020) (mL/min/1.73m2) 94.28 Glucose (74-106) mg/dL 90 Calcium (8.5-10.1) mg/dL 7.3 L Magnesium (1.8-2.4) mg/dL 1.7 L Total Bilirubin (0.2-1.0) mg/dL 0.4 AST (15-37) U/L 32 ALT (14-59) U/L 55 Alkaline Phosphatase (46-116) U/L 53 Total Protein (6.4-8.2) g/dL 5.7 L Albumin (3.4-5.0) g/dL 2.9 L 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
[2024-12-14 19:29] LABS: HCT 49.2 % (36.0-46.0); HGB 16.9 g/dL (11.2-15.7); MCH 30.2 pg (27.0-33.0); MCHC 34.3 % (32.0-36.0); MCV 88 fL (80-95); MPV 9.0 fL (8.0-11.0); Platelet Count 345 10^3/uL (130-400); RBC 5.59 10^6/uL (3.93-5.22); RDW 13.7 % (11.7-14.6); RDW-SD 43.9 fL; WBC 16.43 10^3/uL (4.4-10.8)
[2024-12-14 19:32] VITALS: RESP 16
[2024-12-14] MEDS: Normal Saline 500 ML IV (19:39)
[2024-12-14] MEDS: Normal Saline Flush 10 ML SYR IVP (19:39)
[2024-12-14 19:48] LABS: ALT 55 U/L (14-59); AST 32 U/L (15-37); Albumin 2.9 g/dL (3.4-5.0); Alkaline Phosphatase 53 U/L (46-116); Anion Gap 14.0 mmol/L (3-11); BUN 8 mg/dL (7-18); Bilirubin, Total 0.4 mg/dL (0.2-1.0); CO2 22.0 mmol/L (21.0-32.0); Calcium 7.3 mg/dL (8.5-10.1); Chloride 109 mmol/L (98-107); Estimated GFR 94.28 (mL/min/1.73m2); Glucose 90 mg/dL (74-106); Magnesium 1.7 mg/dL (1.8-2.4); Sodium 145 mmol/L (136-145); Total Protein 5.7 g/dL (6.4-8.2)
[2024-12-14 19:49] LABS: Potassium 2.8 mmol/L (3.5-5.1)
[2024-12-14 19:57] LABS: RBC Morphology Normal
[2024-12-14] MEDS: MAGNESIUM SULFATE 1 GM/100 ML BAG IV_INF (19:58)
[2024-12-14] MEDS: POTASSIUM CHLORIDE 10 MEQ/100 ML BAG 100 MEQ IV_INF (19:58)
[2024-12-14] MEDS: Potassium Chloride 20 MEQ TABCR 40 MEQ PO (19:58)
[2024-12-14] MEDS: Normal Saline 1,000 ML 200 ML IV (19:59)
[2024-12-14 21:37] VITALS: BP 137/95; PULSE 93; RESP 16; TEMP 37; O2SAT 97
== END 2024-12-14 21:41 | disposition home or self-care (01) ==
PROVIDERS: Emergency Provider Registered Nurse Emergency; PCP Physician Assistant Medical
DX: R55 Syncope and collapse (principal); E87.6 Hypokalemia; R00.0 Tachycardia, unspecified; C92.01 Acute myeloblastic leukemia, in remission
CPT/HCPCS: 36415; 80053; 82962; 93005; 96365; 96368; 99284; 83735; 85025; 93010; 99283; J3475; J3480

== ENCOUNTER 2024-12-23 04:37 | Outpatient (CLI) | payer OTHER, SELFPAY ==
[2024-12-23 07:38] LABS: Abs Immature Grans 0.02 10^3/uL (0.0-0.06); HCT 46.2 % (36.0-46.0); HGB 15.8 g/dL (11.2-15.7); Immature Grans % 0.2 %; MCH 30.2 pg (27.0-33.0); MCHC 34.2 % (32.0-36.0); MCV 88 fL (80-95); MPV 9.0 fL (8.0-11.0); Platelet Count 355 10^3/uL (130-400); RBC 5.23 10^6/uL (3.93-5.22); RDW 13.5 % (11.7-14.6); RDW-SD 43.8 fL; WBC 8.06 10^3/uL (4.4-10.8)
[2024-12-23 07:47] LABS: Hemoglobin A1C 5.6 % (<5.7)
[2024-12-23 07:54] LABS: ALT 159 U/L (14-59); AST 60 U/L (15-37); Albumin 3.7 g/dL (3.4-5.0); Alkaline Phosphatase 78 U/L (46-116); Anion Gap 8.7 mmol/L (3-11); BUN 13 mg/dL (7-18); Bilirubin, Total 0.9 mg/dL (0.2-1.0); CO2 25.3 mmol/L (21.0-32.0); Calcium 9.1 mg/dL (8.5-10.1); Calculated LDL 144 mg/dL (<100); Chloride 105 mmol/L (98-107); Cholesterol 197 mg/dL (<200); Estimated GFR 72.13 (mL/min/1.73m2); Glucose 101 mg/dL (74-106); HDL Cholesterol 29 mg/dL (>or=50); Magnesium 2.1 mg/dL (1.8-2.4); Potassium 3.9 mmol/L (3.5-5.1); Sodium 139 mmol/L (136-145); Total Protein 7.3 g/dL (6.4-8.2); Triglyceride 122 mg/dL (<150)
[2024-12-23 08:05] LABS: Ferritin 252 ng/mL (8-252)
== END 2024-12-23 04:38 | disposition home or self-care (01) ==
LOC: LBO 04:37
PROVIDERS: PCP Physician Assistant Medical; Visit Provider Internal Medicine
DX: E83.42 Hypomagnesemia (principal); Z13.220 Encounter for screening for lipoid disorders; Z13.1 Encounter for screening for diabetes mellitus; E83.110 Hereditary hemochromatosis
CPT/HCPCS: 36415; 80053; 80061; 82728; 83036; 83735; 85025

== ENCOUNTER 2024-12-31 00:33 | Outpatient (RCR) | payer OTHER, SELFPAY | END 2025-01-16 23:59 | disposition home or self-care (01) | LOC: INF 00:33 | PROVIDERS: PCP Physician Assistant Medical; Visit Provider Nurse Practitioner Adult Health | DX: C92.00 Acute myeloblastic leukemia, not having achieved remission (principal) | CPT/HCPCS: 99195 ==

== ENCOUNTER 2025-01-20 09:05 | Outpatient (CLI) | payer OTHER, SELFPAY ==
[2025-01-20 08:22] LABS: HCT 44.0 % (36.0-46.0); HGB 15.1 g/dL (11.2-15.7); MCH 29.8 pg (27.0-33.0); MCHC 34.3 % (32.0-36.0); MCV 87 fL (80-95); MPV 9.0 fL (8.0-11.0); Platelet Count 395 10^3/uL (130-400); RBC 5.06 10^6/uL (3.93-5.22); RDW 13.7 % (11.7-14.6); RDW-SD 44.0 fL; WBC 8.53 10^3/uL (4.4-10.8)
[2025-01-20 08:26] LABS: ALT 57 U/L (14-59); AST 32 U/L (15-37); Albumin 3.3 g/dL (3.4-5.0); Alkaline Phosphatase 74 U/L (46-116); Anion Gap 10.2 mmol/L (3-11); BUN 8 mg/dL (7-18); Bilirubin, Total 0.5 mg/dL (0.2-1.0); CO2 24.8 mmol/L (21.0-32.0); Calcium 8.8 mg/dL (8.5-10.1); Chloride 104 mmol/L (98-107); Estimated GFR 72.13 (mL/min/1.73m2); Glucose 102 mg/dL (74-106); Potassium 3.6 mmol/L (3.5-5.1); Sodium 139 mmol/L (136-145); Total Protein 7.1 g/dL (6.4-8.2)
[2025-01-20 08:48] LABS: Abs Immature Grans 0.00 10^3/uL (0.0-0.06); Immature Grans % 0.0 %; RBC Morphology Normal
== END 2025-01-20 09:06 | disposition home or self-care (01) ==
LOC: LBO 09:05
PROVIDERS: PCP Physician Assistant Medical; Visit Provider Nurse Practitioner Adult Health
DX: E87.6 Hypokalemia (principal); Z94.81 Bone marrow transplant status
CPT/HCPCS: 36415; 80053; 82728; 85025

== ENCOUNTER 2025-01-31 08:33 | Emergency (ER) | payer OTHER, SELFPAY ==
[2025-01-31 08:46] VITALS: BP 138/83; PULSE 127; RESP 20; TEMP 36.9; O2SAT 97
--- NOTE | 2025-01-31 09:00 | RT.EKG_ITS ---
APPROVED REPORT Exam: Resting ECG Reason for Exam: SOB Patient Location: E HR:99 bpm ECG Measurements Heart Rate 99 AXIS UT 109 P 10 QRSd 84 QRS -29 QT 359 T 7 QTc 462 Conclusion Sinus rhythm...normal P axis, V-rate 60- 99 Physician: No STEMI
--- NOTE | 2025-01-31 09:15 | DI.CT_ITS ---
Exam(s) CT CHEST PE CTA EXAM: CT CHEST PE CTA CLINICAL HISTORY: hx of PE, now SOB w/ CP. TECHNIQUE: Imaging Protocol: Axial CT angiography was performed with multi- slice acquisition and multi-planar and/or 3D reconstructions. Lung Computer Aided Detection (CAD) was utilized. CONTRAST MATERIAL: Intravenous: Omnipaque 350 contrast volume:100 mL COMPARISON: CT CT CHEST PE CTA from 02/25/[address] CHEST/ABD/PEL W from 04/18/2021 FINDINGS: Tracheobronchial tree: Patent where visualized. No bronchiectasis. Pulmonary parenchyma: Atelectasis or scarring is seen in the lingula. No focal consolidating infiltrates are seen. Pulmonary Arteries: No evidence of filling defect to suggest pulmonary emboli. Mediastinum and Katarzyna: No dominant adenopathy or fluid collection. The esophagus is unremarkable. Visualized thyroid gland: Unremarkable. Pleura: No effusion or pneumothorax. Heart: The heart is not dilated. No coronary artery calcifications are seen. No pericardial effusion. Aorta: Thoracic aorta non-dilated. No evidence of dissection. Upper abdomen: There is no acute abnormality. Soft tissues: Unremarkable. Bones: Within normal limits for the patient's age. IMPRESSION: No evidence of pulmonary embolism, thoracic aortic dissection or aneurysm. RADIATION DOSE DELIVERED: 284.51mGy.cm Total DLP DATA REPOSITORY: All CT scans at this facility are submitted to the National Radiology Data Registry (NRDR) Dose Index Registry (DIR) with the [employer] (ACR). RADIATION OPTIMIZATION: All CT scans at this facility use at least one of these dose optimization techniques: automated exposure control; mA and/or kV adjustment per patient size (includes targeted exams where dose is matched to clinical indication); or iterative reconstruction.
--- NOTE | 2025-01-31 09:17 | DI.US_ITS ---
Exam(s) US EXTREMITY VENOUS BI EXAM: US EXTREMITY VENOUS BI CLINICAL HISTORY: hx of dvt, now swelling and pain in calves. TECHNIQUE: Bilateral lower extremity venous ultrasound performed using grayscale, color-flow, and spectral Doppler analysis. COMPARISON: No exams were available for comparison FINDINGS: The right common femoral, femoral and popliteal veins demonstrate normal compressibility, augmentation, and color Doppler. The posterior tibial and peroneal veins are patent. The saphenofemoral junction is unremarkable. There is no evidence of a Laureano's cyst. The soft tissues are unremarkable. The left common femoral, femoral and popliteal veins demonstrate normal compressibility, augmentation, and color Doppler. The posterior tibial and peroneal veins are patent. The saphenofemoral junction is unremarkable. There is no evidence of a Laureano's cyst. The soft tissues are unremarkable. IMPRESSION: 1. No evidence of a right lower extremity DVT. 2. No evidence of a left lower extremity DVT. DATA REPOSITORY:
--- NOTE | 2025-01-31 09:19 | ED.GENADUL_ITS ---
Discharge Plan Disposition Patient Disposition: Home Condition: Stable Discharge Details Clinical Impression: Rash Primary Care Provider: Doreen Yung ED Provider: Mars Bae Home Meds and New Rx's Prescriptions: No Action Saccharomyces boulardii [Daily Probiotic (S. boulardii)] 250 mg capsule 5,000 mmu cells PO DAILY OcuSoft Lid Scrub Pads, Medicated 1 pad topical ONCE PRN valacyclovir 1 gram tablet 1,000 mg PO BID PRN adapalene-benzoyl peroxide 0.1-2.5 % gel with pump 1 applic topical DAILY triamcinolone acetonide [Nasacort] 55 mcg aerosol,spray 2 spray intranasal DAILY PRN Rx Instructions: administer into each nostril clobetasol 0.05 % cream 1 applic topical DAILY famotidine 20 mg tablet 20 mg PO DAILY PRN ipratropium bromide 0.02 % solution 2.5 ml inhalation Q6H PRN clindamycin phosphate 1 % gel 1 applic topical DAILY artificial tears solution [Moisture Drops] 1 drp ophthalmic (eye) PRN PRN lactase [Lactaid] 3,000 unit tablet 3,000 unit PO ONCE Rx Instructions: administer with meals and/or snacks acetaminophen [Tylenol] 500 mg PO PRN PRN furosemide 20 mg tablet 20 mg PO DAILY Qty: 90 3RF epinephrine 0.3 MG/SYR auto-injector 0.3 mg IJ PRN PRN lidocaine-prilocaine 2.5-2.5 % Cream 1 applic TOPICAL ONCE PRN diphenhydramine HCl [Benadryl] 25 mg Capsule 25 mg PO DAILY Rx Instructions: before platelets norethindrone acetate 5 mg Tablet 5 mg PO BID montelukast [Singulair] 10 mg Tablet 10 mg PO QHS cholecalciferol (vitamin D3) [Vitamin D3] 25 mcg (1,000 unit) Tablet 25 mcg PO DIRECTED methocarbamol 750 mg tablet 750 mg PO Q8H Patient Comments: TAKE 1 TABLET BY MOUTH 3 TIMES A DAY NEEDED FOR MUSCLE SPASMS (DME) Oxygen Tank See Rx Instructions .ROUTE Rx Instructions: As directed cyclobenzaprine 10 mg tablet 10 mg PO TID PRN (Reason: muscle spasm) Qty: 10 0RF Rx Instructions: Take 1 tablet orally up to 3 times daily as needed for muscle spasm. Discharge Instructions Instructions: Skin Rash ED Additional Instructions: At this time your workup does not show any evidence of current life-threatening etiology. However your symptoms are certainly concerning especially considering your history. We have contacted [facility] and at this time they recommend close follow-up with dermatology for biopsy of your lesions. They will contact you with an appointment time. Additionally the oncology office does want to follow- up with you closely. They will contact you for an updated appointment time as well. If you notice any worsening of your symptoms, or any new symptoms such as spreading of the rash, vomiting, diarrhea, fever, chills, shortness of breath, chest pain, numbness, weakness, or fainting , please return immediately to the emergency department for reevaluation. Please follow up with your primary care provider as soon as possible for reassessment and reevaluation. As always, it was a pleasure participating in your medical care today. Referrals: Doreen Yung PA [Primary Care Provider, Medicine] [facility] General Date/Time Provider Initiated Documentation: 01/31/25 08:46 . 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 Patient states about 5 days ago she noted some red splotches on her arms, they did get a new dog and initially there was concern for potential fungal component. She was on antifungal ointment including clotrimazole which gave no improvement of her symptoms. Additionally she did a few days of prescribed betamethasone, and this also did not improve her symptoms at all. Rash has continued to worsen. It is not itchy, it is minimally tender. No bleeding. No vesicles. No new medications. No new washes or shampoos. Additionally, over the last 5 days she has noticed red spots on her right calvillo which are different in nature than the lesions on her arms. They are mild to moderately tender. They have been increasing in size. She has chronic swelling her size increase in the right lower extremity when compared to the left secondary to chronic muscular weakness in the left from an old ankle injury. She also admits systemic symptoms of mild shortness of breath mild cough for the last 2 weeks. Over the last week she has also noticed significant increase in fatigue, night sweats, and occasional low-grade fever. She denies any other complaints at this time. No other modifying factors. Related Data Home Medications ?Medication ?Instructions ?Recorded ?Confirmed epinephrine 0.3 mg/0.3 mL 0.3 mg IJ PRN PRN 08/21/15 0 12/14/24 injection, auto-injector cholecalciferol (vitamin D3) 25 25 mcg PO DIRECTED 02/25/20 12/14/24 mcg (1,000 unit) tablet (Vitamin D3) montelukast 10 mg tablet 10 mg PO QHS 02/25/20 (Singulair) diphenhydramine HCl 25 mg capsule 25 mg PO DAILY 07/2212/14/24 (Benadryl) lidocaine-prilocaine 2.5 %-2.5 % 1 applic topical ONCE PRN 07/22/20 12/14/24 topical cream norethindrone acetate 5 mg tablet 5 mg PO BID 07/22/20 12/14/24 Saccharomyces boulardii 250 mg 5,000 mmu cells PO JACK Y 05/21/22 12/14/24 capsule (Daily Probiotic (S. boulardii)) adapalene 0.1 %-benzoyl peroxide 1 applic topical JACK Y 05/21/22 12/14/24 2.5 % topical gel with pump clobetasol 0.05 % topical cream 1 applic topical DAILY 05/21/22 12/14/24 eyelid cleanser combination 5 1 pad topical ONCE PRN 0 05/21/22 12/14/24 (OcuSoft Lid Scrub topical pads) famotidine 20 mg tablet 20 mg PO DAILY PRN 05/21/22 12/14/24 ipratropium bromide 0.02 % 2.5 ml inhalation Q6H PRN 0 05/21/22 12/14/24 solution for inhalation triamcinolone acetonide 55 mcg 2 spray intranasal JACK Y PRN 05/21/22 12/14/24 nasal spray aerosol (Nasacort) valacyclovir 1 gram tablet 1,000 mg PO BID PRN 3 12/14/24 acetaminophen 500 mg PO PRN PRN 12/13/22 0 12/14/24 artificial tears solution 1 drp ophthalmic (eye) PRN P RN 12/13/22 12/14/24 clindamycin phosphate 1 % topical 1 applic topical ADDISON LY 12/13/22 12/14/24 gel lactase 3,000 unit tablet (Lactaid) 3,000 unit PO ONCE 12/13/22 12/14/24 furosemide 20 mg tablet 20 mg PO DAILY #90 tabs 04/1912/14/24 Oxygen 12/14/24 12/14/24 cyclobenzaprine 10 mg tablet 10 mg PO TID PRN muscle s pasm #10 12/14/24 tabs methocarbamol 750 mg tablet 750 mg PO Q8H 12/14/24 Previous Rx's ?Medication ?Instructions ?Recorded furosemide 20 mg tablet 20 mg PO DAILY #90 tabs 1202/08 cyclobenzaprine 10 mg tablet 10 mg PO TID PRN muscle s pasm #10 12/14/24 tabs Allergies Allergy/AdvReac Type Severity Reaction Status Date / Time hydrocodone Allergy Intermediate rash and Verified 12/14/24 19:13 facial swelling voriconazole Allergy Intermediate Dizziness/L Verified 12/14/24 19:13 ighthead amoxicillin Allergy Unknown as infant Verified 12/14/24 19:13 albuterol Allergy Other (See Verified 12/14/24 19:13 Comment) COVID-19 (SARS-CoV-2) Allergy Other (See Verified 12/14/24 19:13 vaccine, patience Comment) fluticasone propionate (From Allergy mild Verified 12/14/24 19:13 Advair Diskus) throat swelling Heparin Analogues Allergy Other (See Verified 12/14/24 19:13 Comment) lactose Allergy Other (See Verified 12/14/24 19:13 Comment) metronidazole, micronized Allergy Other (See Verified 12/14/24 19:13 Comment) salmeterol xinafoate (From Allergy mild Verified 12/14/24 19:13 Advair Diskus) throat swelling turkey Allergy Other (See Verified 12/14/24 19:13 Comment) vancomycin Allergy Skin Rash Verified 12/14/24 19:13 venom-honey bee (bee venom Allergy Anaphylaxsi Verified 12/14/24 19:13 (honey bee)) s loratadine AdvReac Intermediate Dizziness/L Verified 12/14/24 19:13 ighthead metronidazole AdvReac Intermediate Other (See Verified 12/14/24 19:13 Comment) covid vaccine - Moderna Allergy Other (See Uncoded 12/14/24 19:13 Comment) tegaderm dressing Allergy Other (See Uncoded 12/14/24 19:13 Comment) General Stated Complaint: Vascular RICKY: 3 Exam Narrative Exam Narrative: 1.Const: Well-nourished, Well-developed, appearing stated age 2.Eyes: PERRL, no conjunctival injection, and symmetrical lids. 3.ENT: Atraumatic external nose and ears. Moist MM. Neck: Symmetric, trachea midline, No thyromegaly. 4.CVS: +S1/S2, Peripheral pulses 2+ and equal in all extremities. Brisk capillary refill in all extremities. 5.RESP: Unlabored respiratory effort. Clear to auscultation bilaterally. No wheezes rales or rhonchi 6.GI: Soft, Nontender/Nondistended, No hepatosplenomegaly. No guarding or rebound. 7.MSK: Normocephalic/Atraumatic, Extremities w/o deformity or ttp No cyanosis or clubbing, Normal movement of all extremities. Right lower extremity demonstrates oblong erythematous lesion on the right anterior calvillo. It is not well-circumscribed. Slightly diffuse. Roughly 7 to 8 cm long and 2 to 3 cm wide. Blanching slightly. No vesicles, negative Nikolsky sign. Mildly tender on palpation. The left ankle demonstrates a few very small subtle components similar to this with small mild broad lesions. Mild calf tenderness on the right, but not the left. 8.Skin: Warm, Dry. Patient's arms demonstrate large erythematous well- circumscribed lesions on the forearms bilaterally, there is coalescence for the majority of the lesions with occasional disc shaped components on the periphery. Diameter of the large coalesced lesion is roughly 6 cm, and the small discoid lesions range from 2 cm to 5 mm. Raised borders are noted, erythematous on the outer components with more violaceous color than the central components. No scaling. Mild blanching. Minimal tenderness. 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 Sensation grossly intact, no focal neurologic deficits. 10.Psych: (AAO) x3. Appropriate mood and affect Course Vital Signs Vital signs: Vital Signs Temperature 36.9 C 01/31/25 08:46 Pulse 127 H 01/31/25 08:46 Respiratory Rate 20 01/31/25 08:46 Blood Pressure 138/83 01/31/25 08:46 Pulse Oximetry 97 01/31/25 08:46 Temperature 36.9 C 01/31/25 08:46 Temperature Source Tympanic 01/31/25 08:46 Pulse 127 H 01/31/25 08:46 Respiratory Rate 20 01/31/25 08:46 Blood Pressure 138/83 01/31/25 08:46 Blood Pressure Position Sitting 01/31/25 08:46 Pulse Oximetry 97 01/31/25 08:46 Oxygen Delivery Method Room Air 01/31/25 08:46 Oxygen Flow Rate 0 01/31/25 08:46 Pain Level 3 01/31/25 08:46 Lab/Test Results Lab/Test Results: 01/31/25 09:16 Blood Blood Culture - Pending 01/31/25 09:16 Blood Blood Culture - Pending Medical Decision Making 44-year-old with a past medical history of asthma, 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 Patient states about 5 days ago she noted some red splotches on her arms, they did get a new dog and initially there was concern for potential fungal component. She was on antifungal ointment including clotrimazole which gave no improvement of her symptoms. Additionally she did a few days of prescribed betamethasone, and this also did not improve her symptoms at all. Rash has continued to worsen. It is not itchy, it is minimally tender. No bleeding. No vesicles. No new medications. No new washes or shampoos. Additionally, over the last 5 days she has noticed red spots on her right calvillo which are different in nature than the lesions on her arms. They are mild to moderately tender. They have been increasing in size. She has chronic swelling her size increase in the right lower extremity when compared to the left secondary to chronic muscular weakness in the left from an old ankle injury. She also admits systemic symptoms of mild shortness of breath mild cough for the last 2 weeks. Over the last week she has also noticed significant increase in fatigue, night sweats, and occasional low-grade fever. She denies any other complaints at this time. No other modifying factors. Physical exam demonstrates Right lower extremity WITH oblong erythematous lesion on the right anterior calvillo. It is not well-circumscribed. Slightly diffuse. Roughly 7 to 8 cm long and 2 to 3 cm wide. Blanching slightly. No vesicles, negative Nikolsky sign. Mildly tender on palpation. The left ankle demonstrates a few very small subtle components similar to this with small mild broad lesions. Mild calf tenderness on the right, but not the left. 8.Skin: Warm, Dry. Patient's arms demonstrate large erythematous well- circumscribed lesions on the forearms bilaterally, there is coalescence for the majority of the lesions with occasional disc shaped components on the periphery. Diameter of the large coalesced lesion is roughly 6 cm, and the small discoid lesions range from 2 cm to 5 mm. Raised borders are noted, erythematous on the outer components with more violaceous color than the central components. No scaling. Mild blanching. Minimal tenderness. Without the itchiness, psoriasis and eczema seen less likely. Certainly less likely to be a fungal infection as the arm lesions have not improved with antifungal ointment. Additionally they are not itchy. High concern for potential autoimmune component or vasculitis. Symptoms appear inconsistent with erythema migrans. The leg lesions are concerning for erythema nodosum, but differential also includes a less likely cellulitis. I do have a high level level of concern that this may be related to autoimmune or rejection mediated components. We will evaluate for infectious etiologies. Additionally with the patient's fatigue night sweats and low-grade fever this increases my concern for potential rejection or autoimmune. Additionally with her chest pain shortness of breath and history of DVTs blood clots certainly remains on the differential. Will get ultrasounds of the lower extremities as well as imaging of the chest to rule out PE. We will reach out to [facility] oncology hematology after results return. Will monitor closely and reassess. 12:23 PM Patient's laboratory workup has returned notably benign. Ultrasound is negative for evidence of DVT, CT scan of the chest negative for for pulmonary embolism. Patient continues to feel well. Vital signs are stable at this time. Laboratory workup has returned and shows minimal white count 11.5, platelets at 458, no bandemia. ESR and CRP are elevated, however procalcitonin is normal. Symptoms do not appear to be consistent with bacterial infection or sepsis at this time. Lactate is normal. Electrolytes normal. Renal function stable. COVID flu and RSV are negative. Patient otherwise feels well. I did contact [facility] and discussed the case with , and after discussion of the case and review of the images, they recommend close follow-up with [facility] dermatology for a biopsy of the rash/lesion. They would prefer to hold off on any steroid administration at this time. As the patient is otherwise nontoxic- appearing, and shows no other defendants of acute life-threatening etiology patient is stable for discharge at this time based on current clinical assessment. Oncology feels that this is unlikely to be rejection or edkaj-echhru-odty disease. With a normal lactate, negative procalcitonin, no significant elevation in white count, no fever at this time, I do feel that antibiotics are not currently clinically indicated. Discussed red flags for which to return. Still considering autoimmune component. Referral has been placed with [facility] dermatology. Patient will be discharged home. I have extensively reviewed the treatment plan and discharge instructions with the patient and their family. I have addressed all patient concerns at this time. The patient and family was made aware of what symptoms to monitor for that would warrant a return to the emergency department. Discussed the plan with the patient and family, they demonstrate verbal understanding and agreement with our assessment and plan at this time. The documentation in this chart was dictated using [employer] dictation software. Please excuse any dictation errors. FINDINGS: The right common femoral, femoral and popliteal veins demonstrate normal compressibility, augmentation, and color Doppler. The posterior tibial and peroneal veins are patent. The saphenofemoral junction is unremarkable. There is no evidence of a Laureano's cyst. The soft tissues are unremarkable. The left common femoral, femoral and popliteal veins demonstrate normal compressibility, augmentation, and color Doppler. The posterior tibial and peroneal veins are patent. The saphenofemoral junction is unremarkable. There is no evidence of a Laureano's cyst. The soft tissues are unremarkable. IMPRESSION: 1. No evidence of a right lower extremity DVT. 2. No evidence of a left lower extremity DVT. FINDINGS: Tracheobronchial tree: Patent where visualized. No bronchiectasis. Pulmonary parenchyma: Atelectasis or scarring is seen in the lingula. No focal consolidating infiltrates are seen. Pulmonary Arteries: No evidence of filling defect to suggest pulmonary emboli. Mediastinum and Katarzyna: No dominant adenopathy or fluid collection. The esophagus is unremarkable. Visualized thyroid gland: Unremarkable. Pleura: No effusion or pneumothorax. Heart: The heart is not dilated. No coronary artery calcifications are seen. No pericardial effusion. Aorta: Thoracic aorta non-dilated. No evidence of dissection. Upper abdomen: There is no acute abnormality. Soft tissues: Unremarkable. Bones: Within normal limits for the patient's age. IMPRESSION: No evidence of pulmonary embolism, thoracic aortic dissection or aneurysm. 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
[2025-01-31 09:46] LABS: Abs Immature Grans 0.05 10^3/uL (0.0-0.06); HCT 43.9 % (36.0-46.0); HGB 15.0 g/dL (11.2-15.7); Immature Grans % 0.4 %; MCH 29.8 pg (27.0-33.0); MCHC 34.2 % (32.0-36.0); MCV 87 fL (80-95); MPV 9.0 fL (8.0-11.0); Platelet Count 458 10^3/uL (130-400); RBC 5.03 10^6/uL (3.93-5.22); RDW 13.6 % (11.7-14.6); RDW-SD 43.7 fL; WBC 11.51 10^3/uL (4.4-10.8)
[2025-01-31 09:50] LABS: ESR 81 mm/hr (0-20)
[2025-01-31 10:09] LABS: INR 1.1 (0.9-1.1); PTT Activated 40.9 sec (20.6-30.2); Prothrombin Time 10.6 sec (9.1-11.1)
[2025-01-31] MEDS: Normal Saline Flush 10 ML SYR IVP (10:25)
[2025-01-31] MEDS: Omnipaque 350 MG/ML 100 ML BTL IJ (10:26)
[2025-01-31] MEDS: Normal Saline - Diluent 50 ML VIAL IJ (10:26)
[2025-01-31 10:49] LABS: ALT 29 U/L (14-59); AST 20 U/L (15-37); Alkaline Phosphatase 78 U/L (46-116); Anion Gap 12.9 mmol/L (3-11); Bilirubin, Total 0.8 mg/dL (0.2-1.0); CO2 24.1 mmol/L (21.0-32.0); Calcium 9.3 mg/dL (8.5-10.1); Chloride 101 mmol/L (98-107); Estimated GFR 64.34 (mL/min/1.73m2); Glucose 95 mg/dL (74-106); Potassium 3.7 mmol/L (3.5-5.1); Sodium 138 mmol/L (136-145); Total Protein 8.0 g/dL (6.4-8.2)
[2025-01-31 10:58] LABS: Albumin 3.2 g/dL (3.4-5.0); BUN 6 mg/dL (7-18); C-Reactive Protein 8.39 mg/dL (<or=0.5)
[2025-01-31 11:03] LABS: Procalcitonin < 0.10 ng/mL
[2025-01-31 11:47] LABS: COVID-19 PCR Negative (Negative); RSV PCR Negative (Negative)
[2025-01-31 12:34] VITALS: RESP 16
== END 2025-01-31 12:54 | disposition home or self-care (01) ==
PROVIDERS: Emergency Provider Student in an Organized Health Care Education/Training Program; PCP Physician Assistant Medical
DX: R06.02 Shortness of breath (principal); R21 Rash and other nonspecific skin eruption; M79.661 Pain in right lower leg; M79.662 Pain in left lower leg; Z85.6 Personal history of leukemia
CPT/HCPCS: 99284; 99285; 36415; 71275; 80053; 84145; 85652; 87040; 87637; 93005; 81003; 83605; 85025; 85610; 85730; 86140; 87086; 93010; 93970; J3490

== ENCOUNTER 2025-02-14 07:29 | Outpatient (CLI) | payer OTHER, SELFPAY ==
[2025-02-14 12:06] LABS: Ferritin 131 ng/mL (8-252)
[2025-02-14 14:49] LABS: Abs Immature Grans 0.05 10^3/uL (0.0-0.06); HCT 41.6 % (36.0-46.0); HGB 13.4 g/dL (11.2-15.7); Immature Grans % 0.4 %; MCH 28.8 pg (27.0-33.0); MCHC 32.2 % (32.0-36.0); MCV 89 fL (80-95); RBC 4.66 10^6/uL (3.93-5.22); RDW 14.6 % (11.7-14.6); RDW-SD 47.8 fL; WBC 13.31 10^3/uL (4.4-10.8)
[2025-02-14 15:03] LABS: MPV 9.0 fL (8.0-11.0); Platelet Count 663 10^3/uL (130-400); RBC Morphology Normal
== END 2025-02-14 07:30 | disposition home or self-care (01) ==
LOC: LBO 02-15 07:29
PROVIDERS: PCP Physician Assistant Medical; Visit Provider Nurse Practitioner Adult Health
DX: E83.119 Hemochromatosis, unspecified (principal)
CPT/HCPCS: 36415; 82728; 85025

== ENCOUNTER 2025-02-25 00:39 | Outpatient (RCR) | payer OTHER, SELFPAY | END 2025-03-18 23:59 | disposition home or self-care (01) | LOC: INF 00:39 | PROVIDERS: PCP Physician Assistant Medical; Visit Provider Nurse Practitioner Adult Health | DX: E83.119 Hemochromatosis, unspecified (principal) | CPT/HCPCS: 99195 ==

== ENCOUNTER 2025-02-25 03:20 | Outpatient (CLI) | payer OTHER, SELFPAY ==
--- NOTE | 2025-02-25 | DI.MAMMO_ITS ---
Exam(s) MAMMO SCREENING EXAM: MAMMO SCREENING CLINICAL HISTORY: SCREENING, Z12.31 TECHNIQUE: Bilateral full field digital CC and MLO mammographic images were obtained with 3D tomosynthesis and utilizing computer aided detection (CAD). COMPARISON: Comparison is made with prior examinations. FINDINGS: Masses/Architectural Distortion: No suspicious masses or areas of architectural distortion are present. Microcalcifications: No suspicious pleomorphic-type are seen. Skin Thickening/Nipple Retraction: None. IMPRESSION: 1. No significant interval change with no specific features of malignancy noted. 2. Unless there is more urgent need, screening mammography is recommended, as per [place] [employer] guidelines. BI-RADS Category 1 - Negative Breast Density - Category B - There are scattered areas of fibroglandular density. Breast density Category C or D implies that the patient has dense breast tissue. Dense breast tissue can make it harder to find cancer on a mammogram. Dense breast tissue is also associated with an increased risk of breast cancer. This information about the result of the mammogram report was provided to the patient to raise their awareness. Use this report when you speak with the patient about their risks for breast cancer, which includes their family history. At that time, you may recommend additional screening tests (Ultrasound or MRI) as these tests may add significant information. A negative radiographic report should not delay biopsy if a dominant or clinically suspicious mass is present. Up to ten percent of cancers are not identified on mammography. A negative report may reinforce clinical impression. Adenosis and dense breasts may obscure an underlying neoplasm. False positive reports average 6 to 10%. Patient will receive a letter notifying them of these results.
== END 2025-02-25 03:40 ==
LOC: DI 03:20
PROVIDERS: PCP Physician Assistant Medical; Visit Provider Physician Assistant Medical
DX: Z12.31 Encounter for screening mammogram for malignant neoplasm of breast (principal)
CPT/HCPCS: 77063; 77067

== ENCOUNTER 2025-05-09 16:15 | Outpatient (REF) | payer OTHER, SELFPAY ==
--- NOTE | 2025-05-09 09:30 | PAPFT_PTH ---
PATIENT: Nory Wilkins LOC: [facility]#:[id number] AGE/SX: 44/F ROOM: RE05/09/[address]: Doreen Yung : 1980 BED: DIS: 05/09/2025 SPEC #: [id number] RECD: 05/09/25 18:14 STATUS: ROSE RERoxy #: [id number] COURTNEY: 05/09/25 09:[address]: Doreen Yung DEPT: [facility] Cytology RECD BY: Micaela Maria Tissues: 1 - CX/ENDOCX FOR PAP SMEARS Procedures: PAP THIN PREP/UVM Screening HPV DNA PROBE Comments: [id number] (HPV 16 & 18/45)
== END 2025-05-09 16:16 | disposition home or self-care (01) ==
LOC: NCHCN 16:15
PROVIDERS: PCP Physician Assistant Medical; Visit Provider Physician Assistant Medical
DX: Z12.4 Encounter for screening for malignant neoplasm of cervix (principal)
CPT/HCPCS: 88142; 87624